=== PATIENT | female | born 1970 | race African-American/Black ===

== ENCOUNTER 2016-11-08 14:36 | Inpatient (IN) | payer OTHER ==
[2016-11-08 15:19] VITALS: BMI 21.7
[2016-11-08] MEDS ORDERED: diphenhydrAMINE HCL 50 MG CAPSULE PO PRN (15:45)
[2016-11-08] MEDS ORDERED: LOPERAMIDE HCL 2 MG CAPSULE PO PRN (15:45)
[2016-11-08] MEDS ORDERED: P-EPHED 60MG/TRIPROLIDI 2.5MG TABLET PO PRN (15:45)
[2016-11-08] MEDS ORDERED: MENTHOL/PHENOL 1 EACH UD MM PRN (15:45)
[2016-11-08] MEDS ORDERED: MAG HYDROX/AL HYDROX/SIMETH 30 ML UNIT-DOSE CUP PO PRN (15:45)
[2016-11-08] MEDS ORDERED: guaiFENesin/D-METHORPHAN HB 10 ML UNIT-DOSE CUPS PO PRN (15:45)
[2016-11-08] MEDS ORDERED: IBUPROFEN 400 MG TABLET (FP) PO PRN (15:45)
[2016-11-08] MEDS ORDERED: ACETAMINOPHEN 325 MG TABLET (FP) PO PRN (15:45)
[2016-11-08] MEDS ORDERED: MAGNESIUM CITRATE 300 ML BOTTLE PO PRN (15:45)
[2016-11-08] MEDS ORDERED: MAGNESIUM HYDROX 2400MG/30ML ORAL SUSPENSION 30 ML CUP PO PRN (15:45)
--- NOTE | 2016-11-08 15:58 | HP ---
Admission ROS S - [facility] Chief Complaint: i need rehab to continue abstaining from alcohol and cocaine Allergies/Adverse Reactions: Allergies Allergy/AdvReac Type Severity Reaction Status Date / Time No Known Allergies Allergy Verified 11/08/16 15:45 History of Present Illness: 46 y/o mf pt with h/o alcohol and crack abuse seeking rehab Exam Limitations: No Limitations - Ebola screening Have you traveled outside of the country in the last 21 days: No Have you had contact with anyone from an Ebola affected area: No Have you been sick,other than usual withdrawal symptoms: No - Review of Systems Constitutional: No Symptoms Reported EENT: reports: No Symptoms Reported, Dental Problems Respiratory: reports: No Symptoms reported Cardiac: reports: No Symptoms Reported GI: reports: No Symptoms Reported : reports: No Symptoms Reported Musculoskeletal: reports: No Symptoms Reported Integumentary: reports: No Symptoms Reported Neuro: reports: Numbness, Paresthesia (feet) Endocrine: reports: Increased Hunger, Increased Thirst, Increased Urine, Unexplained Weight Loss Hematology: reports: No Symptoms Reported Psychiatric: reports: Anxious, Depressed Other Systems: Reviewed and Negative Patient History - Patient Medical History Hx Anemia: No Hx Asthma: No Hx Chronic Obstructive Pulmonary Disease (COPD): No Hx Cancer: No Hx Cardiac Disorders: No Hx Congestive Heart Failure: No Hx Hypertension: Yes Hx Hypercholesterolemia: Yes (CRESTOR) Hx Pacemaker: No HX Cerebrovascular Accident: No Hx Seizures: No Hx Dementia: No Hx Diabetes: Yes (h/o recent hospitalization for dka) Hx Gastrointestinal Disorders: Yes (GERD) Hx Liver Disease: No Hx Genitourinary Disorders: No Hx Sexually Transmitted Disorders: No Hx Renal Disease (ESRD): No Hx Thyroid Disease: No Hx Human Immunodeficiency Virus (HIV): No (LAST 2014 NEGATIVE) Hx Hepatitis C: No Hx Depression: Yes Hx Suicide Attempt: No Hx Bipolar Disorder: No Hx Schizophrenia: No - Patient Surgical History Past Surgical History: No Hx Neurologic Surgery: No Hx Cataract Extraction: No Hx Cardiac Surgery: No Hx Lung Surgery: No Hx Breast Surgery: No Hx Breast Biopsy: No Hx Abdominal Surgery: No Hx Appendectomy: No Hx Cholecystectomy: No Hx Genitourinary Surgery: No Hx Section: No Hx Orthopedic Surgery: No Anesthesia Reaction: No - PPD History Date: 05/05/15 Results: 2 MM - Reproductive History Last Menstrual Period: 04/04/16 - Smoking Cessation Smoking history: Current every day smoker Have you smoked in the past 12 months: Yes Aproximately how many cigarettes per day: 10 Cigars Per Day: 0 Hx Chewing Tobacco Use: No Initiated information on smoking cessation: Yes 'Breaking Loose' booklet given: 11/08/16 - Substance & Tx. History Hx Alcohol Use: Yes Hx Substance Use: Yes Substance Use Type: Alcohol, Cocaine Hx Substance Use Treatment: Yes - Substances Abused Alcohol Route: Oral Frequency: Daily Amount used: beer 2-40ozs, Age of first use: 18 Date of Last Use: 11/08/16 Cocaine Route: Smoking Frequency: Daily Amount used: $100./d Age of first use: 18 Date of Last Use: 11/08/16 Family Disease History - Family Disease History Family Disease History: Diabetes: Brother Admission Physical Exam S - Vital Signs Vital Signs: Vital Signs - 24 hr 11/08/16 15:15 Temperature 97.6 F Pulse Rate 81 Respiratory 18 Rate Blood Pressure 119/72 - Physical General Appearance: Yes: No Apparent Distress, Appropriately Dressed, Thin HEENTM: Yes: EOMI, Hearing grossly Normal, Normocephalic, Normal Voice, TIERRA Respiratory: Yes: Chest Non-Tender, Lungs Clear, Normal Breath Sounds, No Respiratory Distress Neck: Yes: Supple, Trachea in good position Breast: Yes: Breast Exam Deferred Cardiology: Yes: Regular Rhythm, Regular Rate, S1, S2 Abdominal: Yes: Normal Bowel Sounds, Non Tender, Flat Genitourinary: Yes: Frequency Back: Yes: Decreased Range of Motion Musculoskeletal: Yes: Joint Stiffness Extremities: Yes: Within Normal Limits Neurological: Yes: sample finisher II-XII NML intact, Fully Oriented, Alert, Normal Response , Abnormal Cranial NS, Numbness Integumentary: Yes: Within Normal Limits Lymphatic: Yes: Within Normal Limits - Diagnostic (1) Cocaine dependence Current Visit: Yes Status: Chronic Qualifiers: Substance use status: uncomplicated Qualified Code(s): F14.20 - Cocaine dependence, uncomplicated (2) DM Diabetes mellitus type 2 Current Visit: Yes Status: Chronic Comment: BGM 445 at 1:33pm today (3) Hypercholesterolemia Current Visit: Yes Status: Chronic (4) Hypertension Current Visit: Yes Status: Chronic Qualifiers: Hypertension type: essential hypertension Qualified Code(s): I10 - Essential (primary) hypertension (5) Alcohol dependence with withdrawal delirium Current Visit: Yes Status: Chronic (6) Neuropathy Current Visit: Yes Status: Chronic (7) Nicotine dependence Current Visit: Yes Status: Chronic Qualifiers: Nicotine product type: cigarettes Substance use status: uncomplicated Qualified Code(s): F17.210 - Nicotine dependence, cigarettes, uncomplicated Cleared for Admission [facility] - Detox or Rehab Claeared for Rehab Admission: Yes S Breath Alcohol Content Breath Alcohol Content: 0.033 Urine Pregancy Test - Result Urine Test Results: Negative- NO Line Present Urine Drug Screen - Results Drug Screen Negative: No Urine Drug Screen Results: IVAN-Cocaine
[2016-11-08] MEDS: INSULIN SLIDING SCALE (NOVOLOG) 1 VIAL SQ SCH (18:25)
[2016-11-08] MEDS ORDERED: TUBERCULIN PPD 5 TU/0.1ML VIAL ID ONE (19:44)
[2016-11-08] MEDS: QUEtiapine FUMARATE 100 MG TABLET (FP) PO SCH (22:04)
[2016-11-08] MEDS: ROSUVASTATIN PO SCH (22:04)
[2016-11-08] MEDS: THIAMINE HCL 100 MG TABLET (FP) PO SCH (22:05)
[2016-11-08] MEDS: PATIENT'S OWN MEDICATION (NON-FORMULARY) (Insulin Glargine,Hum.Rec.Anlog 20 UNITS) SQ SCH (22:07)
[2016-11-08] MEDS: traZODone HCL 100 MG TABLET (FP) PO SCH (22:08)
[2016-11-09] MEDS: INSULIN SLIDING SCALE (NOVOLOG) 1 VIAL SQ SCH ×4 (06:37→21:42)
[2016-11-09] MEDS: NICOTINE 21 MG/24 HOURS TOPICAL PATCH TD SCH (10:57)
[2016-11-09] MEDS: PRENATAL VITAMINS W/ FOLIC ACID TABLET (FP) PO SCH (10:57)
[2016-11-09] MEDS: ASPIRIN 81 MG CHEWABLE TABLETS PO SCH (10:57)
[2016-11-09] MEDS: GABAPENTIN 100 MG CAPSULE (FP) PO SCH (10:57)
[2016-11-09 10:58] LABS: ALBUMIN 2.7 g/dl (3.4-5.0); ANION GAP 8 (8-16); CALCIUM 8.3 mg/dL (8.5-10.1); CO2 31 mmol/L (21-32); GLUCOSE,RANDOM 129 mg/dL (74-106); MCHC 33.7 g/dl (32.0-36.0); MEAN CELL VOLUME 89.1 fl (80-96); MEAN PLT VOLUME 9.4 fl (7.5-11.1); PLATELET COUNT 147 K/MM3 (134-434); RDW 13.1 % (11.6-15.6); WHITE BLOOD COUNT 6.8 K/mm3 (4.0-10.0)
[2016-11-09] MEDS: PATIENT'S OWN MEDICATION (NON-FORMULARY) (Ramipril [Altace] 10 MG) PO SCH (11:02)
[2016-11-09 11:03] LABS: ALK PHOS 73 U/L (45-117); BILIRUBIN,TOTAL 0.4 mg/dL (0.2-1.0); CREATININE 0.7 mg/dL (0.55-1.02); SGOT/AST 24 U/L (15-37); SGPT/ALT 20 U/L (12-78); TOT PROT 5.3 g/dl (6.4-8.2)
[2016-11-09] MEDS ORDERED: PT OWN MED DRAWER 7, Y5N ONE (11:10)
[2016-11-09 11:45] LABS: HIV 1 & 2 AB NEGATIVE; HIV 1 AGp24 NEGATIVE
[2016-11-09] MEDS ORDERED: INSULIN (NOVOLOG) ASPART 100 UNITS/ML 10ML VIAL ONE (12:13)
--- NOTE | 2016-11-09 12:31 | EKG ---
Test Reason : Blood Pressure : / mmHG Vent. Rate : 083 BPM Atrial Rate : 083 BPM P-R Int : 132 ms QRS Dur : 082 ms QT Int : 404 ms P-R-T Axes : -09 016 025 degrees QTc Int : 474 ms SINUS RHYTHM WITH FREQUENT PREMATURE VENTRICULAR COMPLEXES OTHERWISE NORMAL ECG NO PREVIOUS ECGS AVAILABLE Confirmed by LENA LEE, SHARDA ([id number]) on 11/09/2016 12:31:30 PM Referred By: Confirmed By:SHARDA PAREDES MD
[2016-11-09] MEDS: THIAMINE HCL 100 MG TABLET (FP) PO SCH (21:40)
[2016-11-09] MEDS: traZODone HCL 100 MG TABLET (FP) PO SCH (21:40)
[2016-11-09] MEDS: QUEtiapine FUMARATE 100 MG TABLET (FP) PO SCH (21:40)
[2016-11-09] MEDS: PATIENT'S OWN MEDICATION (NON-FORMULARY) (Insulin Glargine,Hum.Rec.Anlog 20 UNITS) SQ SCH (21:41)
[2016-11-09] MEDS: ROSUVASTATIN PO SCH (21:43)
[2016-11-10] MEDS: INSULIN SLIDING SCALE (NOVOLOG) 1 VIAL SQ SCH ×4 (07:43→21:55)
[2016-11-10] MEDS ORDERED: INSULIN (NOVOLOG) ASPART 100 UNITS/ML 10ML VIAL ONE (07:51)
--- NOTE | 2016-11-10 09:51 | HP ---
Psychiatrist Admission - Data Date of interview: 11/10/16 Admission source: [facility] Identifying data: This is the fourth admission to [address] [place] [address] FOR THIS 46 years old AA single female mother of 21 yo daughter, resides alone,supported by boyfriend. Medical History: HTN,DM,Hyperlipidemia. Psychiatric History: Patient reports history of depressed mood,but didnt address her issues until recently.Patient was admitted to [facility] last winter when she expressed suicidal ideationss.Patient was dx with MDD and was placed on Celaxa 20 mg then increased up to 20 mg po daily.Patient has no regular psychiatric care,obtaining her medications from local ER,Primary Care Physician.Current medications:Celaxa 40 mg po daily,Seroquel 100 mg po hs and Trazodone 100 mg po hs. Physical/Sexual Abuse/Trauma History: denies Vital Signs: Vital Signs - 24 hr 11/09/16 11/10/16 11/10/16 10:55 00:30 03:30 Temperature Pulse Rate 88 Respiratory 18 18 Rate Blood Pressure 125/74 11/10/16 07:44 Temperature 98.1 F Pulse Rate 85 Respiratory 18 Rate Blood Pressure 102/66 Allergies/Adverse Reactions: Allergies Allergy/AdvReac Type Severity Reaction Status Date / Time No Known Allergies Allergy Verified 11/08/16 15:45 Date of last physical exam: 11/08/16 Concur with the findings of this exam: Yes - Substance Abuse/Tx History Hx Alcohol Use: Yes (reports drinking since 18 yo,vodka 1 pint,beer a few 6 packs daily) Hx Substance Use: Yes (cocaine/crack sine 18 yo) Substance Use Type: Alcohol, Cocaine Hx Substance Use Treatment: Yes (longest sobriety 2 years,left AMA this program 05/07) - Admission Criteria Previous failed treatment: Yes Poor recovery environment: Yes Comorbidities: Yes Lacks judgement: Yes Mental Status Exam - Mental Status Exam Alert and Oriented to: Time, Place, Person Cognitive Function: Grossly Intact Patient Appearance: Well Groomed Mood: Sad Affect: Mood Congruent Patient Behavior: Cooperative Speech Pattern: Clear Voice Loudness: Normal Thought Process: Goal Oriented Thought Disorder: Not Present Hallucinations: Denies Suicidal Ideation: Denies Homicidal Ideation: Denies Insight/Judgement: Fair Sleep: Fair Appetite: Good Muscle strength/Tone: Normal Gait/Station: Normal Psychiatric Findings - Problem List ([place] 1, 2,3) (1) Alcohol dependence with withdrawal delirium Current Visit: Yes Status: Chronic (2) Cocaine dependence Current Visit: Yes Status: Chronic Qualifiers: Substance use status: uncomplicated Qualified Code(s): F14.20 - Cocaine dependence, uncomplicated (3) DM Diabetes mellitus type 2 Current Visit: Yes Status: Chronic Comment: BGM 445 at 1:33pm today (4) Hypercholesterolemia Current Visit: Yes Status: Chronic (5) Hypertension Current Visit: Yes Status: Chronic Qualifiers: Hypertension type: essential hypertension Qualified Code(s): I10 - Essential (primary) hypertension (6) Neuropathy Current Visit: Yes Status: Chronic (7) Nicotine dependence Current Visit: Yes Status: Chronic Qualifiers: Nicotine product type: cigarettes Substance use status: uncomplicated Qualified Code(s): F17.210 - Nicotine dependence, cigarettes, uncomplicated - Initial Treatment Plan Initial Treatment Plan: Continue Trazodone 100 mg po hs,Seroquel 100 mg po hs and Celexa 40 mg po daily.
[2016-11-10] MEDS: PRENATAL VITAMINS W/ FOLIC ACID TABLET (FP) PO SCH (10:28)
[2016-11-10] MEDS: GABAPENTIN 100 MG CAPSULE (FP) PO SCH (10:28)
[2016-11-10] MEDS: ASPIRIN 81 MG CHEWABLE TABLETS PO SCH (10:28)
[2016-11-10] MEDS: PATIENT'S OWN MEDICATION (NON-FORMULARY) (Ramipril [Altace] 10 MG) PO SCH (10:28)
[2016-11-10] MEDS: NICOTINE 21 MG/24 HOURS TOPICAL PATCH TD SCH (10:28)
[2016-11-10] MEDS: CITALOPRAM HYDROBROMIDE 20 MG TABLET (FP) PO SCH (10:28)
[2016-11-10] MEDS ORDERED: PT OWN MED DRAWER 7, Y5N ONE ×3 (10:37→17:07)
[2016-11-10 11:21] LABS: URINE APPEARANCE SLCLOUDY; URINE BILIRUBIN NEGATIVE (NEGATIVE); URINE BLOOD NEGATIVE (NEGATIVE); URINE COLOR LTYELLOW; URINE GLUCOSE (UA) 3+ (NEGATIVE); URINE KETONE NEGATIVE (NEGATIVE); URINE NITRITE NEGATIVE (NEGATIVE); URINE PROTEIN NEGATIVE (NEGATIVE); URINE UROBILINOGEN NEGATIVE E.U./dl (0.2-1.0)
[2016-11-10 11:23] LABS: URINE LEUK ESTERASE TRACE (NEGATIVE)
--- NOTE | 2016-11-10 11:29 | EKG ---
Test Reason : Blood Pressure : / mmHG Vent. Rate : 083 BPM Atrial Rate : 083 BPM P-R Int : 126 ms QRS Dur : 084 ms QT Int : 400 ms P-R-T Axes : 074 052 061 degrees QTc Int : 470 ms SINUS RHYTHM WITH FREQUENT PREMATURE VENTRICULAR COMPLEXES NONSPECIFIC T WAVE ABNORMALITY PROLONGED QT ABNORMAL ECG WHEN COMPARED WITH ECG OF 08-NOV-2016 20:29, NO SIGNIFICANT CHANGE WAS FOUND Confirmed by HARSHA TAO MD ([id number]) on 11/10/2016 11:28:47 AM Referred By: Confirmed By:HARSHA TAO MD
[2016-11-10 11:30] LABS: URINE RBC 2 /hpf (0-3); URINE WBC 7 /hpf (3-5)
[2016-11-10] MEDS: PATIENT'S OWN MEDICATION (NON-FORMULARY) (Insulin Glargine,Hum.Rec.Anlog 10 UNITS) SQ SCH (17:08)
[2016-11-10] MEDS: QUEtiapine FUMARATE 100 MG TABLET (FP) PO SCH (21:53)
[2016-11-10] MEDS: traZODone HCL 100 MG TABLET (FP) PO SCH (21:54)
[2016-11-10] MEDS: ROSUVASTATIN PO SCH (21:57)
[2016-11-10] MEDS: NICOTINE POLACRILEX 4 MG GUM BC PRN (21:57)
[2016-11-10] MEDS: THIAMINE HCL 100 MG TABLET (FP) PO SCH (23:35)
[2016-11-11] MEDS: PATIENT'S OWN MEDICATION (NON-FORMULARY) (Insulin Glargine,Hum.Rec.Anlog 10 UNITS) SQ SCH ×2 (07:33→16:33)
[2016-11-11] MEDS: INSULIN SLIDING SCALE (NOVOLOG) 1 VIAL SQ SCH ×4 (07:33→22:09)
[2016-11-11] MEDS: NICOTINE POLACRILEX 4 MG GUM BC PRN (07:35)
[2016-11-11] MEDS ORDERED: INSULIN (NOVOLOG) ASPART 100 UNITS/ML 10ML VIAL ONE ×4 (07:36→22:19)
[2016-11-11] MEDS ORDERED: PT OWN MED DRAWER 7, Y5N ONE ×4 (07:37→19:36)
[2016-11-11] MEDS: CITALOPRAM HYDROBROMIDE 20 MG TABLET (FP) PO SCH (09:19)
[2016-11-11] MEDS: ASPIRIN 81 MG CHEWABLE TABLETS PO SCH (09:19)
[2016-11-11] MEDS: NICOTINE 21 MG/24 HOURS TOPICAL PATCH TD SCH (09:20)
[2016-11-11] MEDS: GABAPENTIN 100 MG CAPSULE (FP) PO SCH (09:20)
[2016-11-11] MEDS: PRENATAL VITAMINS W/ FOLIC ACID TABLET (FP) PO SCH (09:20)
[2016-11-11] MEDS: PATIENT'S OWN MEDICATION (NON-FORMULARY) (Ramipril [Altace] 10 MG) PO SCH (09:21)
[2016-11-11] MEDS: THIAMINE HCL 100 MG TABLET (FP) PO SCH (22:08)
[2016-11-11] MEDS: traZODone HCL 100 MG TABLET (FP) PO SCH (22:08)
[2016-11-11] MEDS: QUEtiapine FUMARATE 100 MG TABLET (FP) PO SCH (22:08)
[2016-11-11] MEDS: ROSUVASTATIN CA 10 MG TABLET (FP) PO SCH (22:08)
[2016-11-12] MEDS: INSULIN SLIDING SCALE (NOVOLOG) 1 VIAL SQ SCH ×4 (07:56→22:10)
[2016-11-12] MEDS: PATIENT'S OWN MEDICATION (NON-FORMULARY) (Insulin Glargine,Hum.Rec.Anlog 10 UNITS) SQ SCH ×2 (07:57→17:07)
[2016-11-12] MEDS ORDERED: INSULIN (NOVOLOG) ASPART 100 UNITS/ML 10ML VIAL ONE ×3 (07:58→17:04)
[2016-11-12] MEDS: GABAPENTIN 100 MG CAPSULE (FP) PO SCH (09:43)
[2016-11-12] MEDS: ASPIRIN 81 MG CHEWABLE TABLETS PO SCH (09:43)
[2016-11-12] MEDS: CITALOPRAM HYDROBROMIDE 20 MG TABLET (FP) PO SCH (09:43)
[2016-11-12] MEDS: PRENATAL VITAMINS W/ FOLIC ACID TABLET (FP) PO SCH (09:44)
[2016-11-12] MEDS: NICOTINE 21 MG/24 HOURS TOPICAL PATCH TD SCH (09:44)
[2016-11-12] MEDS: PATIENT'S OWN MEDICATION (NON-FORMULARY) (Ramipril [Altace] 10 MG) PO SCH (09:44)
[2016-11-12] MEDS ORDERED: PT OWN MED DRAWER 7, Y5N ONE ×6 (16:50→22:40)
[2016-11-12] MEDS: THIAMINE HCL 100 MG TABLET (FP) PO SCH (22:09)
[2016-11-12] MEDS: traZODone HCL 100 MG TABLET (FP) PO SCH (22:09)
[2016-11-12] MEDS: QUEtiapine FUMARATE 100 MG TABLET (FP) PO SCH (22:10)
[2016-11-12] MEDS: NICOTINE POLACRILEX 4 MG GUM BC PRN (22:15)
[2016-11-12] MEDS: ROSUVASTATIN CA 10 MG TABLET (FP) PO SCH (22:36)
[2016-11-13] MEDS: INSULIN SLIDING SCALE (NOVOLOG) 1 VIAL SQ SCH ×4 (06:14→21:48)
[2016-11-13] MEDS: PATIENT'S OWN MEDICATION (NON-FORMULARY) (Insulin Glargine,Hum.Rec.Anlog 10 UNITS) SQ SCH ×2 (07:06→17:01)
[2016-11-13] MEDS ORDERED: PT OWN MED DRAWER 7, Y5N ONE ×6 (07:07→22:49)
[2016-11-13] MEDS: GABAPENTIN 100 MG CAPSULE (FP) PO SCH (10:38)
[2016-11-13] MEDS: ASPIRIN 81 MG CHEWABLE TABLETS PO SCH (10:38)
[2016-11-13] MEDS: PRENATAL VITAMINS W/ FOLIC ACID TABLET (FP) PO SCH (10:38)
[2016-11-13] MEDS: CITALOPRAM HYDROBROMIDE 20 MG TABLET (FP) PO SCH (10:38)
[2016-11-13] MEDS: NICOTINE 21 MG/24 HOURS TOPICAL PATCH TD SCH (10:38)
[2016-11-13] MEDS: PATIENT'S OWN MEDICATION (NON-FORMULARY) (Ramipril [Altace] 10 MG) PO SCH (10:40)
[2016-11-13] MEDS ORDERED: INSULIN (NOVOLOG) ASPART 100 UNITS/ML 10ML VIAL ONE (11:45)
[2016-11-13] MEDS: NICOTINE POLACRILEX 4 MG GUM BC PRN (11:47)
[2016-11-13] MEDS ORDERED: COLLOIDAL OATMEAL 1 BAR EACH TP PRN (13:56)
[2016-11-13] MEDS: traZODone HCL 100 MG TABLET (FP) PO SCH (21:47)
[2016-11-13] MEDS: ROSUVASTATIN CA 10 MG TABLET (FP) PO SCH (21:47)
[2016-11-13] MEDS: THIAMINE HCL 100 MG TABLET (FP) PO SCH (21:47)
[2016-11-13] MEDS: QUEtiapine FUMARATE 100 MG TABLET (FP) PO SCH (21:47)
[2016-11-14] MEDS ORDERED: INSULIN DETEMIR 100 UNITS/ML MDV SQ ONE (05:58)
[2016-11-14] MEDS: NICOTINE POLACRILEX 4 MG GUM BC PRN ×2 (06:26→17:08)
[2016-11-14] MEDS: INSULIN SLIDING SCALE (NOVOLOG) 1 VIAL SQ SCH ×4 (06:55→21:54)
[2016-11-14] MEDS ORDERED: PT OWN MED DRAWER 7, Y5N ONE ×5 (08:03→17:07)
[2016-11-14] MEDS: PATIENT'S OWN MEDICATION (NON-FORMULARY) (Insulin Glargine,Hum.Rec.Anlog 10 UNITS) SQ SCH ×2 (08:04→17:06)
[2016-11-14] MEDS: ASPIRIN 81 MG CHEWABLE TABLETS PO SCH (10:32)
[2016-11-14] MEDS: GABAPENTIN 100 MG CAPSULE (FP) PO SCH (10:32)
[2016-11-14] MEDS: CITALOPRAM HYDROBROMIDE 20 MG TABLET (FP) PO SCH (10:32)
[2016-11-14] MEDS: PRENATAL VITAMINS W/ FOLIC ACID TABLET (FP) PO SCH (10:32)
[2016-11-14] MEDS: PATIENT'S OWN MEDICATION (NON-FORMULARY) (Ramipril [Altace] 10 MG) PO SCH (10:32)
[2016-11-14] MEDS: NICOTINE 21 MG/24 HOURS TOPICAL PATCH TD SCH (10:33)
[2016-11-14] MEDS ORDERED: INSULIN (NOVOLOG) ASPART 100 UNITS/ML 10ML VIAL ONE (11:58)
[2016-11-14] MEDS: THIAMINE HCL 100 MG TABLET (FP) PO SCH (21:53)
[2016-11-14] MEDS: traZODone HCL 100 MG TABLET (FP) PO SCH (21:53)
[2016-11-14] MEDS: QUEtiapine FUMARATE 100 MG TABLET (FP) PO SCH (21:53)
[2016-11-14] MEDS: ROSUVASTATIN CA 10 MG TABLET (FP) PO SCH (21:55)
[2016-11-15] MEDS: INSULIN SLIDING SCALE (NOVOLOG) 1 VIAL SQ SCH ×4 (06:37→21:46)
[2016-11-15] MEDS: PATIENT'S OWN MEDICATION (NON-FORMULARY) (Insulin Glargine,Hum.Rec.Anlog 10 UNITS) SQ SCH ×2 (08:23→17:08)
[2016-11-15] MEDS ORDERED: PT OWN MED DRAWER 7, Y5N ONE ×3 (09:29→19:45)
[2016-11-15] MEDS: ASPIRIN 81 MG CHEWABLE TABLETS PO SCH (10:33)
[2016-11-15] MEDS: CITALOPRAM HYDROBROMIDE 20 MG TABLET (FP) PO SCH (10:33)
[2016-11-15] MEDS: GABAPENTIN 100 MG CAPSULE (FP) PO SCH (10:33)
[2016-11-15] MEDS: PRENATAL VITAMINS W/ FOLIC ACID TABLET (FP) PO SCH (10:33)
[2016-11-15] MEDS: NICOTINE 21 MG/24 HOURS TOPICAL PATCH TD SCH (10:35)
[2016-11-15] MEDS: PATIENT'S OWN MEDICATION (NON-FORMULARY) (Ramipril [Altace] 10 MG) PO SCH (10:35)
[2016-11-15] MEDS ORDERED: INSULIN (NOVOLOG) ASPART 100 UNITS/ML 10ML VIAL ONE (11:51)
[2016-11-15] MEDS: NICOTINE POLACRILEX 4 MG GUM BC PRN (11:53)
[2016-11-15] MEDS: THIAMINE HCL 100 MG TABLET (FP) PO SCH (21:44)
[2016-11-15] MEDS: QUEtiapine FUMARATE 100 MG TABLET (FP) PO SCH (21:45)
[2016-11-15] MEDS: traZODone HCL 100 MG TABLET (FP) PO SCH (21:45)
[2016-11-15] MEDS: ROSUVASTATIN CA 10 MG TABLET (FP) PO SCH (21:47)
[2016-11-16] MEDS: INSULIN SLIDING SCALE (NOVOLOG) 1 VIAL SQ SCH ×4 (06:14→21:41)
[2016-11-16] MEDS ORDERED: PT OWN MED DRAWER 7, Y5N ONE ×4 (06:46→19:43)
[2016-11-16] MEDS: PATIENT'S OWN MEDICATION (NON-FORMULARY) (Insulin Glargine,Hum.Rec.Anlog 10 UNITS) SQ SCH ×2 (07:34→17:02)
[2016-11-16] MEDS: ASPIRIN 81 MG CHEWABLE TABLETS PO SCH (10:57)
[2016-11-16] MEDS: GABAPENTIN 100 MG CAPSULE (FP) PO SCH (10:57)
[2016-11-16] MEDS: CITALOPRAM HYDROBROMIDE 20 MG TABLET (FP) PO SCH (10:57)
[2016-11-16] MEDS: NICOTINE 21 MG/24 HOURS TOPICAL PATCH TD SCH (10:58)
[2016-11-16] MEDS: PRENATAL VITAMINS W/ FOLIC ACID TABLET (FP) PO SCH (10:58)
[2016-11-16] MEDS: PATIENT'S OWN MEDICATION (NON-FORMULARY) (Ramipril [Altace] 10 MG) PO SCH (10:59)
[2016-11-16] MEDS ORDERED: INSULIN (NOVOLOG) ASPART 100 UNITS/ML 10ML VIAL ONE (11:50)
[2016-11-16] MEDS: NICOTINE POLACRILEX 4 MG GUM BC PRN ×2 (11:53→17:04)
[2016-11-16] MEDS: THIAMINE HCL 100 MG TABLET (FP) PO SCH (21:40)
[2016-11-16] MEDS: traZODone HCL 100 MG TABLET (FP) PO SCH (21:40)
[2016-11-16] MEDS: QUEtiapine FUMARATE 100 MG TABLET (FP) PO SCH (21:40)
[2016-11-16] MEDS: ROSUVASTATIN CA 10 MG TABLET (FP) PO SCH (21:42)
[2016-11-17] MEDS ORDERED: PT OWN MED DRAWER 7, Y5N ONE ×5 (03:21→19:35)
[2016-11-17] MEDS: INSULIN SLIDING SCALE (NOVOLOG) 1 VIAL SQ SCH ×4 (06:34→21:55)
[2016-11-17] MEDS: PATIENT'S OWN MEDICATION (NON-FORMULARY) (Insulin Glargine,Hum.Rec.Anlog 10 UNITS) SQ SCH ×2 (07:42→17:10)
[2016-11-17] MEDS: NICOTINE POLACRILEX 4 MG GUM BC PRN (07:44)
[2016-11-17] MEDS: PRENATAL VITAMINS W/ FOLIC ACID TABLET (FP) PO SCH (10:37)
[2016-11-17] MEDS: ASPIRIN 81 MG CHEWABLE TABLETS PO SCH (10:37)
[2016-11-17] MEDS: GABAPENTIN 100 MG CAPSULE (FP) PO SCH (10:37)
[2016-11-17] MEDS: CITALOPRAM HYDROBROMIDE 20 MG TABLET (FP) PO SCH (10:37)
[2016-11-17] MEDS: PATIENT'S OWN MEDICATION (NON-FORMULARY) (Ramipril [Altace] 10 MG) PO SCH (10:38)
[2016-11-17] MEDS: NICOTINE 21 MG/24 HOURS TOPICAL PATCH TD SCH (10:38)
[2016-11-17] MEDS ORDERED: INSULIN (NOVOLOG) ASPART 100 UNITS/ML 10ML VIAL ONE ×2 (11:55→17:20)
[2016-11-17] MEDS: ROSUVASTATIN CA 10 MG TABLET (FP) PO SCH (21:54)
[2016-11-17] MEDS: traZODone HCL 100 MG TABLET (FP) PO SCH (21:54)
[2016-11-17] MEDS: QUEtiapine FUMARATE 100 MG TABLET (FP) PO SCH (21:54)
[2016-11-17] MEDS: THIAMINE HCL 100 MG TABLET (FP) PO SCH (21:54)
[2016-11-18] MEDS ORDERED: PT OWN MED DRAWER 7, Y5N ONE ×5 (05:24→19:36)
[2016-11-18] MEDS: INSULIN SLIDING SCALE (NOVOLOG) 1 VIAL SQ SCH ×4 (06:35→21:38)
[2016-11-18] MEDS: PATIENT'S OWN MEDICATION (NON-FORMULARY) (Insulin Glargine,Hum.Rec.Anlog 10 UNITS) SQ SCH ×2 (07:26→16:46)
[2016-11-18] MEDS: PATIENT'S OWN MEDICATION (NON-FORMULARY) (Ramipril [Altace] 10 MG) PO SCH (10:20)
[2016-11-18] MEDS: ASPIRIN 81 MG CHEWABLE TABLETS PO SCH (10:20)
[2016-11-18] MEDS: GABAPENTIN 100 MG CAPSULE (FP) PO SCH (10:20)
[2016-11-18] MEDS: PRENATAL VITAMINS W/ FOLIC ACID TABLET (FP) PO SCH (10:20)
[2016-11-18] MEDS: CITALOPRAM HYDROBROMIDE 20 MG TABLET (FP) PO SCH (10:21)
[2016-11-18] MEDS: NICOTINE 21 MG/24 HOURS TOPICAL PATCH TD SCH (10:21)
[2016-11-18] MEDS ORDERED: INSULIN (NOVOLOG) ASPART 100 UNITS/ML 10ML VIAL ONE (11:49)
[2016-11-18] MEDS: THIAMINE HCL 100 MG TABLET (FP) PO SCH (21:36)
[2016-11-18] MEDS: QUEtiapine FUMARATE 100 MG TABLET (FP) PO SCH (21:36)
[2016-11-18] MEDS: traZODone HCL 100 MG TABLET (FP) PO SCH (21:36)
[2016-11-18] MEDS: ROSUVASTATIN CA 10 MG TABLET (FP) PO SCH (21:39)
[2016-11-19] MEDS ORDERED: PT OWN MED DRAWER 7, Y5N ONE ×5 (03:47→21:42)
[2016-11-19] MEDS: INSULIN SLIDING SCALE (NOVOLOG) 1 VIAL SQ SCH ×4 (06:42→21:45)
[2016-11-19] MEDS: PATIENT'S OWN MEDICATION (NON-FORMULARY) (Insulin Glargine,Hum.Rec.Anlog 10 UNITS) SQ SCH ×2 (07:50→17:01)
[2016-11-19] MEDS: NICOTINE 21 MG/24 HOURS TOPICAL PATCH TD SCH (10:21)
[2016-11-19] MEDS: PATIENT'S OWN MEDICATION (NON-FORMULARY) (Ramipril [Altace] 10 MG) PO SCH (10:21)
[2016-11-19] MEDS: PRENATAL VITAMINS W/ FOLIC ACID TABLET (FP) PO SCH (10:22)
[2016-11-19] MEDS: GABAPENTIN 100 MG CAPSULE (FP) PO SCH (10:22)
[2016-11-19] MEDS: CITALOPRAM HYDROBROMIDE 20 MG TABLET (FP) PO SCH (10:22)
[2016-11-19] MEDS: ASPIRIN 81 MG CHEWABLE TABLETS PO SCH (10:22)
[2016-11-19] MEDS ORDERED: INSULIN (NOVOLOG) ASPART 100 UNITS/ML 10ML VIAL ONE (11:54)
[2016-11-19] MEDS: ROSUVASTATIN CA 10 MG TABLET (FP) PO SCH (21:43)
[2016-11-19] MEDS: QUEtiapine FUMARATE 100 MG TABLET (FP) PO SCH (21:44)
[2016-11-19] MEDS: THIAMINE HCL 100 MG TABLET (FP) PO SCH (21:44)
[2016-11-19] MEDS: traZODone HCL 100 MG TABLET (FP) PO SCH (21:44)
[2016-11-20] MEDS ORDERED: PT OWN MED DRAWER 7, Y5N ONE ×4 (03:25→16:04)
[2016-11-20] MEDS: INSULIN SLIDING SCALE (NOVOLOG) 1 VIAL SQ SCH ×4 (07:18→21:31)
[2016-11-20] MEDS: PATIENT'S OWN MEDICATION (NON-FORMULARY) (Insulin Glargine,Hum.Rec.Anlog 10 UNITS) SQ SCH (07:19)
[2016-11-20] MEDS ORDERED: INSULIN (NOVOLOG) ASPART 100 UNITS/ML 10ML VIAL ONE ×3 (07:20→16:58)
[2016-11-20] MEDS: GABAPENTIN 100 MG CAPSULE (FP) PO SCH (10:32)
[2016-11-20] MEDS: PATIENT'S OWN MEDICATION (NON-FORMULARY) (Ramipril [Altace] 10 MG) PO SCH (10:32)
[2016-11-20] MEDS: ASPIRIN 81 MG CHEWABLE TABLETS PO SCH (10:32)
[2016-11-20] MEDS: CITALOPRAM HYDROBROMIDE 20 MG TABLET (FP) PO SCH (10:32)
[2016-11-20] MEDS: PRENATAL VITAMINS W/ FOLIC ACID TABLET (FP) PO SCH (10:32)
[2016-11-20] MEDS: NICOTINE 21 MG/24 HOURS TOPICAL PATCH TD SCH (10:33)
[2016-11-20] MEDS: INSULIN GLARGINE HUM REC ANLOG 12 UNIT SQ SCH (16:59)
[2016-11-20] MEDS: THIAMINE HCL 100 MG TABLET (FP) PO SCH (21:30)
[2016-11-20] MEDS: QUEtiapine FUMARATE 100 MG TABLET (FP) PO SCH (21:31)
[2016-11-20] MEDS: traZODone HCL 100 MG TABLET (FP) PO SCH (21:31)
[2016-11-20] MEDS: ROSUVASTATIN CA 10 MG TABLET (FP) PO SCH (21:32)
[2016-11-21] MEDS: INSULIN SLIDING SCALE (NOVOLOG) 1 VIAL SQ SCH ×4 (07:20→21:05)
[2016-11-21] MEDS ORDERED: INSULIN (NOVOLOG) ASPART 100 UNITS/ML 10ML VIAL ONE ×3 (07:21→21:04)
[2016-11-21] MEDS: INSULIN GLARGINE HUM REC ANLOG 12 UNIT SQ SCH ×2 (07:22→16:45)
[2016-11-21] MEDS ORDERED: PT OWN MED DRAWER 7, Y5N ONE ×2 (07:22→16:32)
[2016-11-21] MEDS: GABAPENTIN 100 MG CAPSULE (FP) PO SCH (10:14)
[2016-11-21] MEDS: ASPIRIN 81 MG CHEWABLE TABLETS PO SCH (10:14)
[2016-11-21] MEDS: CITALOPRAM HYDROBROMIDE 20 MG TABLET (FP) PO SCH (10:14)
[2016-11-21] MEDS: PATIENT'S OWN MEDICATION (NON-FORMULARY) (Ramipril [Altace] 10 MG) PO SCH (10:14)
[2016-11-21] MEDS: NICOTINE 21 MG/24 HOURS TOPICAL PATCH TD SCH (10:14)
[2016-11-21] MEDS: PRENATAL VITAMINS W/ FOLIC ACID TABLET (FP) PO SCH (10:14)
[2016-11-21] MEDS ORDERED: INSULIN (NOVOLOG) ASPART 100 UNITS/ML 10ML VIAL SQ ONE (11:56)
[2016-11-21] MEDS: THIAMINE HCL 100 MG TABLET (FP) PO SCH (21:40)
[2016-11-21] MEDS: QUEtiapine FUMARATE 100 MG TABLET (FP) PO SCH (21:40)
[2016-11-21] MEDS: traZODone HCL 100 MG TABLET (FP) PO SCH (21:40)
[2016-11-21] MEDS: ROSUVASTATIN CA 10 MG TABLET (FP) PO SCH (21:41)
[2016-11-22] MEDS ORDERED: PT OWN MED DRAWER 7, Y5N ONE ×3 (00:09→09:00)
[2016-11-22 07:02] VITALS: BP 142/82; PULSE 76; TEMP 97.9
[2016-11-22] MEDS: INSULIN GLARGINE HUM REC ANLOG 12 UNIT SQ SCH (07:34)
[2016-11-22] MEDS: INSULIN SLIDING SCALE (NOVOLOG) 1 VIAL SQ SCH (07:35)
[2016-11-22] MEDS: PATIENT'S OWN MEDICATION (NON-FORMULARY) (Ramipril [Altace] 10 MG) PO SCH (09:41)
[2016-11-22] MEDS: PRENATAL VITAMINS W/ FOLIC ACID TABLET (FP) PO SCH (09:41)
[2016-11-22] MEDS: ASPIRIN 81 MG CHEWABLE TABLETS PO SCH (09:41)
[2016-11-22] MEDS: GABAPENTIN 100 MG CAPSULE (FP) PO SCH (09:41)
[2016-11-22] MEDS: CITALOPRAM HYDROBROMIDE 20 MG TABLET (FP) PO SCH (09:42)
[2016-11-22] MEDS: NICOTINE 21 MG/24 HOURS TOPICAL PATCH TD SCH (09:42)
--- NOTE | 2016-11-22 09:46 | PN ---
Psychiatric Progress Note Vital Signs: Vital Signs Period Temp Pulse Resp BP Sys/Malik Pulse Ox Last 24 Hr 97.9 F 75-76 16-18 142-145/77-82 Date of Session: 11/22/16 Chief Complaint:: Discharge visit HPI: Patient addressed Alcohol and Cocaine dependence comorbid with Substance induced mood disorder. ROS: Significant for DM with Neuropathy,Hyperlipidemia,HTN. Current Medications: Active Medications Generic Name Dose Route Start Last Admin Trade Name Freq PRN Reason Stop Dose Admin Acetaminophen 650 mg 11/08/16 15:45 Tylenol - PO Q4H PRN PAIN Al Hydroxide/Mg Hydroxide 30 ml 11/08/16 15:45 11/17/16 00:02 Mylanta Oral Suspension - PO 30 ml Q6H PRN Administration DYSPEPSIA Aspirin 81 mg 11/09/16 10:00 11/22/16 09:41 Asa - PO 81 mg DAILY LICO Administration Citalopram Hydrobromide 40 mg 11/10/16 10:00 11/22/16 09:42 Celexa - PO 40 mg DAILY LICO Administration Colloidal Oatmeal 1 applic 11/13/16 13:56 11/14/16 06:26 Aveeno Soap - TP 1 applic DAILY PRN Administration HYGEINE Diphenhydramine HCl 50 mg 11/08/16 15:45 11/10/16 21:53 Benadryl - PO 50 mg HSMR1 PRN Administration INSOMNIA Eucalyptus/Menthol/Phenol/Sorbitol 1 each 11/08/16 15:45 Cepastat Lozenge - MM Q4H PRN SORE THROAT Gabapentin 100 mg 11/09/16 10:00 11/22/16 09:41 Neurontin - PO 100 mg DAILY LICO Administration Guaifenesin 10 ml 11/08/16 15:45 Robitussin Dm - PO Q6H PRN COUGH Ibuprofen 400 mg 11/08/16 15:45 Motrin - PO Q6H PRN SEVERE PAIN Insulin Aspart 1 vial 11/21/16 14:54 11/22/16 07:35 Novolog Vial Sliding Scale - SQ Not Given ACHS [facility] Protocol Loperamide HCl 4 mg 11/08/16 15:45 Imodium - PO Q6H PRN DIARRHEA Magnesium Citrate 300 ml 11/08/16 15:45 Citroma - PO Q48H PRN CONSTIPATION Magnesium Hydroxide 30 ml 11/08/16 15:45 Milk Of Magnesia - PO DAILY PRN CONSTIPATION Nicotine 21 mg 11/09/16 10:00 11/22/16 09:42 Nicoderm Patch - TD Not Given DAILY LICO Nicotine Polacrilex 4 mg 11/08/16 15:45 11/17/16 07:44 Nicorette Gum - BC 4 mg Q2H PRN Administration NICOTINE REPLACEMENT RX Non-Formulary Medication 10 mg 11/09/16 10:00 11/22/16 09:41 Ramipril [Altace] PO 10 mg DAILY LICO Administration Non-Formulary Medication 12 units 11/20/16 17:30 11/22/16 07:34 Insulin Glargine,Hum.Rec.Anlog SQ 12 units BIDWM LICO Administration Multivit/Folic Acid/Iron 1 tab 11/09/16 10:00 11/22/16 09:41 Vitamins (Sjr) - PO 1 tab DAILY LICO Administration Pseudoephedrine/Triprolidine 1 combo 11/08/16 15:45 Actifed - PO TID PRN NASAL CONGESTION Quetiapine Fumarate 100 mg 11/08/16 22:00 11/21/16 21:40 Seroquel - PO 100 mg HS LICO Administration Rosuvastatin Calcium 10 mg 11/11/16 22:00 11/21/16 21:41 Crestor - PO 10 mg HS LICO Administration Thiamine HCl 100 mg 11/08/16 22:00 11/21/16 21:40 Vitamin B1 - PO 100 mg HS LICO Administration Trazodone HCl 100 mg 11/08/16 22:00 11/21/16 21:40 Desyrel - PO 100 mg HS LICO Administration Current Side Effect: No Lab tests ordered: No Lab tests reviewed: Yes Provider note:: Patient completed this program today.She has met her short term goals and will continue to address her issues on outpatient basis at [facility] [place] [facility].Patient soledad continue to take her psychotropic medications:Trazodone 100 mg po hs,Neurontin 100 mg po daily,celexa 40 mg po daily and Seroquel 100 mg po hs.Scripts for 30 days supply provided. Therpay provided focusing on coping skills,support sytem utilization to maintain recovery. Total face to face time:: 30 Mental Status Exam - Mental Status Exam Alert and Oriented to: Time, Place, Person Cognitive Function: Grossly Intact Patient Appearance: Well Groomed Mood: Euthymic Affect: Appropriate, Mood Congruent Patient Behavior: Cooperative Speech Pattern: Clear Voice Loudness: Normal Thought Process: Goal Oriented Thought Disorder: Not Present Hallucinations: Denies Suicidal Ideation: Denies Homicidal Ideation: Denies Insight/Judgement: Fair Sleep: Fair Appetite: Fair Muscle strength/Tone: Normal Gait/Station: Normal Psychiatric Treatment Plan - Problem List (1) Alcohol dependence with withdrawal delirium Current Visit: Yes (2) Cocaine dependence Current Visit: Yes Qualifiers: Substance use status: uncomplicated Qualified Code(s): F14.20 - Cocaine dependence, uncomplicated (3) DM Diabetes mellitus type 2 Current Visit: Yes Comment: BGM 445 at 1:33pm today (4) Hypercholesterolemia Current Visit: Yes (5) Hypertension Current Visit: Yes Qualifiers: Hypertension type: essential hypertension Qualified Code(s): I10 - Essential (primary) hypertension (6) Neuropathy Current Visit: Yes (7) Nicotine dependence Current Visit: Yes Qualifiers: Nicotine product type: cigarettes Substance use status: uncomplicated Qualified Code(s): F17.210 - Nicotine dependence, cigarettes, uncomplicated
== END 2016-11-22 09:45 | disposition home or self-care (01) | DRG 772 ==
LOC: YASAS 14:36 → Y3E 17:07
PROVIDERS: ADMIT Psychiatry & Neurology Psychiatry; ATTEND Psychiatry & Neurology Psychiatry
PROC: HZ42ZZZ Group Counseling for Substance Abuse Treatment, Cognitive-Behavioral (ICD-10-PCS; principal; 2016-11-08)
DX: F10.20 Alcohol dependence, uncomplicated (principal); F14.20 Cocaine dependence, uncomplicated; F17.210 Nicotine dependence, cigarettes, uncomplicated; F19.24 Other psychoactive substance dependence with psychoactive substance-induced mood disorder; E11.9 Type 2 diabetes mellitus without complications; E78.5 Hyperlipidemia, unspecified; G62.9 Polyneuropathy, unspecified; I10 Essential (primary) hypertension; Z59.0 Homelessness
CPT/HCPCS: 36415; 80053; 81003; 81015; 85027; 86593; 87389; 93005; 93010

== ENCOUNTER 2018-02-16 03:57 | Emergency (ER) | payer OTHER ==
[2018-02-16 04:04] VITALS: TEMP 97.9; BMI 24.3
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
[2018-02-16] MEDS ORDERED: HALOPERIDOL LACTATE 5 MG/ML IM ONE (04:43)
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
[2018-02-16] MEDS ORDERED: FOLIC ACID INJECTION - 1 MG, THIAMINE HCL 100 MG, MULTIVIT INJECTION ADULT 10 ML in SOD... IVPB ONE (04:44)
[2018-02-16] MEDS ORDERED: HALOPERIDOL LACTATE 5 MG/ML ONE (05:13)
[2018-02-16] MEDS ORDERED: LORazepam 2 MG/ML SDV VIAL ONE (05:13)
[2018-02-16 05:15] LABS: BASO % 1.1 % (0-2.0); EOS % 1.7 % (0-4.5); HEMATOCRIT 41.2 % (32.4-45.2); MCH 30.6 pg (25.7-33.7); MCHC 33.9 g/dl (32.0-36.0); MEAN CELL VOLUME 90.2 fl (80-96); MEAN PLT VOLUME 7.8 fl (7.5-11.1); NEUT % 53.2 % (42.8-82.8); PLATELET COUNT 201 K/MM3 (134-434); RBC 4.57 M/mm3 (3.60-5.2); WHITE BLOOD COUNT 9.5 K/mm3 (4.0-10.0)
[2018-02-16 05:56] LABS: ALBUMIN 3.7 g/dl (3.4-5.0); ANION GAP 9 (8-16); BLOOD UREA NITROGEN 10 mg/dL (7-18); CALCIUM 8.8 mg/dL (8.5-10.1); CHLORIDE 102 mmol/L (98-107); CO2 28 mmol/L (21-32); CREATININE 0.9 mg/dL (0.55-1.02); POTASSIUM 4.2 mmol/L (3.5-5.1); SGOT/AST 17 U/L (15-37); SGPT/ALT 18 U/L (12-78); SODIUM 139 mmol/L (136-145)
[2018-02-16 06:00] LABS: ALK PHOS 71 U/L (45-117); BILIRUBIN,TOTAL 0.4 mg/dL (0.2-1.0); TOT PROT 7.3 g/dl (6.4-8.2)
[2018-02-16 06:02] LABS: GLUCOSE,RANDOM 315 mg/dL (74-106)
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
[2018-02-16] MEDS ORDERED: ACETAMINOPHEN 325 MG TABLET (FP) PO ONE (14:50)
[2018-02-16] MEDS ORDERED: ACETAMINOPHEN 325 MG TABLET (FP) ONE (14:51)
[2018-02-16 15:05] VITALS: BP 144/98; PULSE 85
== END 2018-02-16 15:05 | disposition home or self-care (01) ==
LOC: JER 03:57
PROC: 3E033GC Introduction of Other Therapeutic Substance into Peripheral Vein, Percutaneous Approach (ICD-10-PCS; principal; 2018-02-16)
PROC: 3E023GC Introduction of Other Therapeutic Substance into Muscle, Percutaneous Approach (ICD-10-PCS; 2018-02-16)
DX: S00.83XA Contusion of other part of head, initial encounter (principal); F10.120 Alcohol abuse with intoxication, uncomplicated; Y04.2XXA Assault by strike against or bumped into by another person, initial encounter; Y93.89 Activity, other specified; Y92.89 Other specified places as the place of occurrence of the external cause; Y99.8 Other external cause status; Y07.03 Male partner, perpetrator of maltreatment and neglect; E11.9 Type 2 diabetes mellitus without complications; Z79.4 Long term (current) use of insulin; E78.00 Pure hypercholesterolemia, unspecified; Z59.0 Homelessness
CPT/HCPCS: 36415; 70450-TC; 80053; 80307; 82962; 84702; 85025; 96365; 96366; 96372; 96375; 99283-25; J7030

== ENCOUNTER 2018-03-22 12:32 | Inpatient (IN) | payer OTHER ==
[2018-03-22 13:04] VITALS: BMI 24.3
--- NOTE | 2018-03-22 19:49 | HP ---
"CIWA Score - CIWA Score Nausea/Vomitin-No Nausea/No Vomiting Muscle Tremors: 3 Anxiety: 2 Agitation: 4-Moderately Restless Paroxysmal Sweats: 4-Forehead w/Sweat Beads Orientation: 0-Oriented Tacttile Disturbances: 0-None Auditory Disturbances: 0-None Visual Disturbances: 0-None Headache: 2-Mild CIWA-Ar Total Score: 15 Admission ROS BHS - HPI Chief Complaint: Here for alcohol withdrawal and I also use cocaine. Allergies/Adverse Reactions: Allergies Allergy/AdvReac Type Severity Reaction Status Date / Time No Known Allergies Allergy Verified 03/22/18 14:42 History of Present Illness: Hx alcohol use since age 16 and cocaine use since age 18 now uses crack. Denies hx of blackouts or seizures. Has had a 2 year period of sobriety when attended groups and meetings (in early 1999). Hx depression and insomnia and being seen by mental health. Hx: HTN, elevated lipids, IDDM, neuropathy,and GERD. Compliant w/ all meds when sober. Search Terms: Jordan Rincon, 1970 Search Date: 03/22/2018 07:34:48 PM The Drug Utilization Report below displays all of the controlled substance prescriptions, if any, that your patient has filled in the last twelve months. The information displayed on this report is compiled from pharmacy submissions to the Department, and accurately reflects the information as submitted by the pharmacies. This report was requested by: Krystina Ibarra | Reference #: [id number] There are no results for the search terms that you entered. Exam Limitations: No Limitations - Ebola screening Have you traveled outside of the country in the last 21 days: No Have you had contact with anyone from an Ebola affected area: No Have you been sick,other than usual withdrawal symptoms: No Do you have a fever: No - Review of Systems Constitutional: Chills, Loss of Appetite, Changes in sleep (Difficulty falling and staying asleep.) EENT: reports: Blurred Vision (Needs glasses), Dental Problems (Missing several teeth) Respiratory: reports: No Symptoms reported Cardiac: reports: No Symptoms Reported GI: reports: Indigestion (acid reflux) : reports: Discharge (Whitish vaginal discharge which does not itch.) Musculoskeletal: reports: No Symptoms Reported Integumentary: reports: No Symptoms Reported Neuro: reports: Headache (r/t withdrawal), Numbness (Toes and feet numbness x 5 years.), Tremors (r/t withdrawal) Endocrine: reports: Increased Thirst (When sugar is high) Hematology: reports: No Symptoms Reported Psychiatric: reports: Judgement Intact, Orientated x3, Agitated, Anxious, Depressed (Denies thoughts of harming self or others.) Patient History - Patient Medical History Hx Anemia: No Hx Asthma: No Hx Chronic Obstructive Pulmonary Disease (COPD): No Hx Cancer: No Hx Cardiac Disorders: No Hx Congestive Heart Failure: No Hx Hypertension: Yes (ON MEDS.) Hx Hypercholesterolemia: Yes (CRESTOR) Hx Pacemaker: No HX Cerebrovascular Accident: No Hx Seizures: No Hx Dementia: No Hx Diabetes: Yes (IDDM) Hx Gastrointestinal Disorders: Yes (acid reflux) Hx Liver Disease: No Hx Genitourinary Disorders: No Hx Sexually Transmitted Disorders: No Hx Renal Disease (ESRD): No Hx Thyroid Disease: No Hx Human Immunodeficiency Virus (HIV): No (LAST 2014 NEGATIVE) Hx Hepatitis C: No Hx Depression: Yes Hx Suicide Attempt: Yes (TRIED TO OVERDOSE 20 YRS AGO.) Hx Bipolar Disorder: No Hx Schizophrenia: No - Patient Surgical History Past Surgical History: No Hx Neurologic Surgery: No Hx Cataract Extraction: No Hx Cardiac Surgery: No Hx Lung Surgery: No Hx Breast Surgery: No Hx Breast Biopsy: No Hx Abdominal Surgery: No Hx Appendectomy: No Hx Cholecystectomy: No Hx Genitourinary Surgery: No Hx Section: No Hx Orthopedic Surgery: No Anesthesia Reaction: No - PPD History Previous Implant?: Yes Documented Results: Negative w/o proof Implanted On Prior [facility] Admission?: Yes Date: 11/10/16 Results: 2 MM PPD to be Administered?: Yes - Reproductive History Patient is a Female of Child Bearing Age (11 -55 yrs old): Yes Last Menstrual Period: 03/08/18 Patient : No - Smoking Cessation Smoking history: Current every day smoker Have you smoked in the past 12 months: Yes Aproximately how many cigarettes per day: 10 Cigars Per Day: 0 Hx Chewing Tobacco Use: No Initiated information on smoking cessation: Yes 'Breaking Loose' booklet given: 03/22/18 - Substance & Tx. History Hx Alcohol Use: Yes Hx Substance Use: Yes Substance Use Type: Alcohol, Cocaine Hx Substance Use Treatment: Yes (detox, rehab) - Substances Abused Alcohol Route: Oral Frequency: Daily Amount used: 1 and 1/2 pints vodka Age of first use: 16 Date of Last Use: 03/22/18 ( 12 noon) Cocaine Route: Smoking Frequency: Daily Amount used: $100 and up Age of first use: 18 Date of Last Use: 03/22/18 (12 noon) Family Disease History - Family Disease History Family Disease History: Diabetes: Brother Admission Physical Exam [facility] - Vital Signs Vital Signs: Vital Signs - 24 hr 03/22/18 13:02 Temperature 98.2 F Pulse Rate 92 H Respiratory 20 Rate Blood Pressure 131/83 - Physical General Appearance: Yes: Nourished, Appropriately Dressed, Tremorous, Irritable , Sweating, Anxious HEENTM: Yes: EOMI, Hearing grossly Normal, Normocephalic, Normal Voice, TIERRA Respiratory: Yes: Chest Non-Tender, Lungs Clear, Normal Breath Sounds Neck: Yes: No masses,lesions,Nodules, Supple Breast: Yes: Breast Exam Deferred Cardiology: Yes: Regular Rhythm, Regular Rate, S1, S2 Abdominal: Yes: Non Tender, Soft, Increased Bowel Sounds Genitourinary: Yes: Within Normal Limits Back: Yes: Normal Inspection Extremities: Yes: Normal Capillary Refill, Normal Range of Motion, Non-Tender, Tremors (of hands when arms extended) Neurological: Yes: bottom crane operator II-XII NML intact, Fully Oriented, Alert, Motor Strength 5/5, Normal Mood/Affect Integumentary: Yes: Normal Color, Dry, Warm Lymphatic: Yes: Within Normal Limits - Diagnostic (1) GERD (gastroesophageal reflux disease) Current Visit: Yes Status: Chronic Qualifiers: Esophagitis presence: esophagitis presence not specified Qualified Code(s) : K21.9 - Gastro-esophageal reflux disease without esophagitis (2) Alcohol dependence with withdrawal delirium Current Visit: Yes Status: Acute (3) Cocaine dependence Current Visit: Yes Status: Chronic Qualifiers: Substance use status: uncomplicated Qualified Code(s): F14.20 - Cocaine dependence, uncomplicated (4) Hypercholesterolemia Current Visit: Yes Status: Chronic (5) Hypertension Current Visit: Yes Status: Chronic Qualifiers: Hypertension type: essential hypertension Qualified Code(s): I10 - Essential (primary) hypertension (6) Neuropathy Current Visit: Yes Status: Chronic (7) Vaginal yeast infection Current Visit: Yes Status: Acute Cleared for Admission [facility] - Detox or Rehab [facility] Level of Care: Medically Managed Detox Regimen/Protocol: Librium [facility] Breath Alcohol Content Breath Alcohol Content: 0.084 Urine Pregancy Test - Result Urine Test Results: Negative- NO Line Present Urine Drug Screen - Results Drug Screen Negative: No Urine Drug Screen Results: IVAN-Cocaine"
[2018-03-22] MEDS ORDERED: MAG HYDROX/AL HYDROX/SIMETH 30 ML UNIT-DOSE CUP PO PRN (20:04)
[2018-03-22] MEDS ORDERED: NICOTINE POLACRILEX 2 MG GUM BC PRN (20:04)
[2018-03-22] MEDS ORDERED: MAGNESIUM CITRATE 300 ML BOTTLE PO PRN (20:04)
[2018-03-22] MEDS ORDERED: MAGNESIUM HYDROX 2400MG/30ML ORAL SUSPENSION 30 ML CUP PO PRN (20:04)
[2018-03-22] MEDS ORDERED: LOPERAMIDE HCL 2 MG CAPSULE PO PRN (20:04)
[2018-03-22] MEDS ORDERED: hydrOXYzine PAMOATE 50 MG CAPSULE (FP) PO PRN (20:04)
[2018-03-22] MEDS ORDERED: guaiFENesin/D-METHORPHAN HB 10 ML UNIT-DOSE CUPS PO PRN (20:04)
[2018-03-22] MEDS ORDERED: ACETAMINOPHEN 325 MG TABLET (FP) PO PRN (20:04)
[2018-03-22] MEDS ORDERED: chlordiazePOXIDE HCL 25 MG CAPSULE PO PRN (20:04)
[2018-03-22] MEDS ORDERED: MENTHOL/PHENOL 1 EACH UD MM PRN (20:04)
[2018-03-22] MEDS ORDERED: chlordiazePOXIDE HCL 25 MG CAPSULE PO ONE (20:04)
[2018-03-22] MEDS ORDERED: P-EPHED 60MG/TRIPROLIDI 2.5MG TABLET PO PRN (20:04)
[2018-03-22] MEDS ORDERED: IBUPROFEN 400 MG TABLET (FP) PO PRN (20:04)
[2018-03-22] MEDS ORDERED: INSULIN (NOVOLOG) ASPART 100 UNITS/ML 10ML VIAL ONE (21:48)
[2018-03-22] MEDS: GABAPENTIN 300 MG CAPSULE (FP) PO SCH (21:52)
[2018-03-22] MEDS: ATORVASTATIN CA 10 MG TABLET (FP) PO SCH (21:52)
[2018-03-22] MEDS: INSULIN SLIDING SCALE (NOVOLOG) 1 VIAL SQ SCH (21:54)
[2018-03-22] MEDS ORDERED: MELATONIN 5 MG TABLETS PO PRN (22:00)
[2018-03-22] MEDS ORDERED: INSULIN GLARGINE HUM REC ANLOG 12 UNIT SQ SCH (22:00)
[2018-03-22] MEDS: THIAMINE HCL 100 MG TABLET (FP) PO SCH (22:13)
[2018-03-22] MEDS: chlordiazePOXIDE HCL 25 MG CAPSULE PO SCH (22:13)
[2018-03-22] MEDS: CLOTRIMAZOLE 1% VAGINAL CREAM WITH APPLICATOR 45 GM TUBE VG SCH (22:14)
[2018-03-22 23:30] LABS: URINE APPEARANCE SLCLOUDY; URINE BILIRUBIN NEGATIVE (<2.0 mg/dL); URINE COLOR LTYELLOW; URINE GLUCOSE (UA) 3+ (NEGATIVE); URINE KETONE NEGATIVE (NEGATIVE); URINE LEUK ESTERASE NEGATIVE (NEGATIVE); URINE NITRITE NEGATIVE (NEGATIVE); URINE UROBILINOGEN NEGATIVE mg/dL (0.2-1.0)
[2018-03-22 23:31] LABS: URINE PROTEIN 2+ (NEGATIVE)
[2018-03-22 23:35] LABS: EPI CELLS RARE /HPF (FEW); URINE BACTERIA RARE /hpf (NONE SEEN); URINE HYALINE CAST 4 /lpf
[2018-03-23] MEDS: chlordiazePOXIDE HCL 25 MG CAPSULE PO SCH ×4 (05:35→22:51)
[2018-03-23] MEDS: RAMIPRIL 5 MG CAPSULE (FP) PO SCH (05:54)
[2018-03-23] MEDS: INSULIN SLIDING SCALE (NOVOLOG) 1 VIAL SQ SCH ×3 (06:11→17:04)
[2018-03-23] MEDS ORDERED: INSULIN (NOVOLOG) ASPART 100 UNITS/ML 10ML VIAL ONE ×3 (06:11→17:00)
[2018-03-23 09:48] LABS: HEMATOCRIT 38.6 % (32.4-45.2); HEMOGLOBIN 12.9 GM/dL (10.7-15.3); MCH 29.7 pg (25.7-33.7); MCHC 33.4 g/dl (32.0-36.0); MEAN CELL VOLUME 88.8 fl (80-96); MEAN PLT VOLUME 8.6 fl (7.5-11.1); PLATELET COUNT 151 K/MM3 (134-434); RBC 4.35 M/mm3 (3.60-5.2); RDW 13.2 % (11.6-15.6); WHITE BLOOD COUNT 7.1 K/mm3 (4.0-10.0)
[2018-03-23] MEDS ORDERED: PATIENT'S OWN MEDICATION (NON-FORMULARY) (Ramipril [Altace] 10 MG) PO SCH (10:00)
[2018-03-23] MEDS ORDERED: FLUCONAZOLE 100 MG TABLET (UD) PO ONE (10:10)
[2018-03-23 10:21] LABS: ANION GAP 8 MMOL/L (8-16); BLOOD UREA NITROGEN 13 mg/dL (7-18); CALCIUM 8.2 mg/dL (8.5-10.1); CHLORIDE 103 mmol/L (98-107); CO2 26 mmol/L (21-32); POTASSIUM 4.3 mmol/L (3.5-5.1); SODIUM 137 mmol/L (136-145)
[2018-03-23 10:26] LABS: ALK PHOS 118 U/L (45-117); BILIRUBIN,TOTAL 0.2 mg/dL (0.2-1.0); CREATININE 0.8 mg/dL (0.55-1.02); SGOT/AST 18 U/L (15-37); SGPT/ALT 23 U/L (12-78); TOT PROT 6.4 g/dl (6.4-8.2)
[2018-03-23 10:41] LABS: GLUCOSE,RANDOM 338 mg/dL (74-106)
[2018-03-23] MEDS: ASPIRIN 81 MG CHEWABLE TABLETS PO SCH (10:46)
[2018-03-23] MEDS: PRENATAL VITAMINS W/ FOLIC ACID TABLET (FP) PO SCH (10:46)
[2018-03-23] MEDS: GABAPENTIN 300 MG CAPSULE (FP) PO SCH ×2 (10:46→22:51)
[2018-03-23] MEDS: NICOTINE 21 MG/24 HOURS TOPICAL PATCH TD SCH (10:47)
--- NOTE | 2018-03-23 12:04 | PN ---
S CIWA - CIWA Score Nausea/Vomitin-Mild Nausea/No Vomiting Muscle Tremors: 4-Moderate,w/Arms Extend Anxiety: 3 Agitation: 3 Paroxysmal Sweats: 1-Minimal Palms Moist Orientation: 0-Oriented Tacttile Disturbances: 1-Very Mild Itch/Numbness Auditory Disturbances: 0-None Visual Disturbances: 0-None Headache: 1-Very Mild CIWA-Ar Total Score: 14 BHS Progress Note (SOAP) Subjective: tremor sweat anxiety restlessness trouble sleep at night Objective: 03/23/18 11:57 Vital Signs Temperature 97.2 F L 03/23/18 09:28 Pulse Rate 77 03/23/18 09:28 Respiratory Rate 16 03/23/18 09:28 Blood Pressure 107/72 03/23/18 09:28 O2 Sat by Pulse Oximetry (%) Laboratory Last Values WBC 7.1 K/mm3 (4.0-10.0) 03/23/18 07:40 RBC 4.35 M/mm3 (3.60-5.2) 03/23/18 07:40 Hgb 12.9 GM/dL (10.7-15.3) 03/23/18 07:40 Hct 38.6 % (32.4-45.2) 03/23/18 07:40 MCV 88.8 fl (80-96) 03/23/18 07:40 MCH 29.7 pg (25.7-33.7) 03/23/18 07:40 MCHC 33.4 g/dl (32.0-36.0) 03/23/18 07:40 RDW 13.2 % (11.6-15.6) 03/23/18 07:40 Plt Count 151 K/MM3 (134-434) D 03/23/18 07:40 MPV 8.6 fl (7.5-11.1) D 03/23/18 07:40 Sodium 137 mmol/L (136-145) 03/23/18 07:40 Potassium 4.3 mmol/L (3.5-5.1) 03/23/18 07:40 Chloride 103 mmol/L (98-107) 03/23/18 07:40 Carbon Dioxide 26 mmol/L (21-32) 03/23/18 07:40 Anion Gap 8 MMOL/L (8-16) 03/23/18 07:40 BUN 13 mg/dL (7-18) 03/23/18 07:40 Creatinine 0.8 mg/dL (0.55-1.02) 03/23/18 07:40 Creat Clearance w eGFR > 60 (>60) 03/23/18 07:40 POC Glucometer 282 UNITS (80-120) 03/23/18 05:37 Random Glucose 338 mg/dL (74-106) H* 03/23/18 07:40 Calcium 8.2 mg/dL (8.5-10.1) L 03/23/18 07:40 Total Bilirubin 0.2 mg/dL (0.2-1.0) 03/23/18 07:40 AST 18 U/L (15-37) 03/23/18 07:40 ALT 23 U/L (12-78) 03/23/18 07:40 Alkaline Phosphatase 118 U/L (45-117) H 03/23/18 07:40 Total Protein 6.4 g/dl (6.4-8.2) 03/23/18 07:40 Albumin 3.0 g/dl (3.4-5.0) L 03/23/18 07:40 Urine Color Ltyellow 03/22/18 22:11 Urine Appearance Slcloudy 03/22/18 22:11 Urine pH 5.0 (5.0-8.0) 03/22/18 22:11 Ur Specific [place] 1.010 (1.001-1.035) 03/22/18 22:11 Urine Protein 2+ (NEGATIVE) H 03/22/18 22:11 Urine Glucose (UA) 3+ (NEGATIVE) H 03/22/18 22:11 Urine Ketones Negative (NEGATIVE) 03/22/18 22:11 Urine Blood Negative (NEGATIVE) 03/22/18 22:11 Urine Nitrite Negative (NEGATIVE) 03/22/18 22:11 Urine Bilirubin Negative (<2.0 mg/dL) 03/22/18 22:11 Urine Urobilinogen Negative mg/dL (0.2-1.0) 03/22/18 22:11 Ur Leukocyte Esterase Negative (NEGATIVE) 03/22/18 22:11 Urine WBC (Auto) <1 /hpf (3-5) 03/22/18 22:11 Urine RBC (Auto) <1 /hpf (0-3) 03/22/18 22:11 Ur Epithelial Cells Rare /HPF (FEW) 03/22/18 22:11 Urine Bacteria Rare /hpf (NONE SEEN) 03/22/18 22:11 Hyaline Casts 4 /lpf 03/22/18 22:11 lab noted health teaching on hyperglycemia related complications encourage calcium rich food intake Assessment: 03/23/18 11:58 alcohol withdrawal sx Plan: continue alcohol detox and diabetes management
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
[2018-03-23] MEDS: THIAMINE HCL 100 MG TABLET (FP) PO SCH (22:50)
[2018-03-23] MEDS: QUEtiapine FUMARATE 100 MG TABLET (FP) PO SCH (22:51)
[2018-03-23] MEDS: traZODone HCL 50 MG TABLET (FP) PO SCH (22:51)
[2018-03-23] MEDS: ATORVASTATIN CA 10 MG TABLET (FP) PO SCH (22:51)
[2018-03-23] MEDS: INSULIN (LEVEMIR) 100 UNITS/ML UNITS SQ SCH (22:52)
[2018-03-23] MEDS: CLOTRIMAZOLE 1% VAGINAL CREAM WITH APPLICATOR 45 GM TUBE VG SCH (22:53)
[2018-03-24] MEDS: INSULIN SLIDING SCALE (NOVOLOG) 1 VIAL SQ SCH ×5 (00:46→23:14)
[2018-03-24] MEDS ORDERED: INSULIN (NOVOLOG) ASPART 100 UNITS/ML 10ML VIAL ONE ×4 (06:03→23:12)
[2018-03-24] MEDS: chlordiazePOXIDE HCL 25 MG CAPSULE PO SCH ×3 (06:04→18:12)
[2018-03-24] MEDS: PRENATAL VITAMINS W/ FOLIC ACID TABLET (FP) PO SCH (10:39)
[2018-03-24] MEDS: ASPIRIN 81 MG CHEWABLE TABLETS PO SCH (10:39)
[2018-03-24] MEDS: NICOTINE 21 MG/24 HOURS TOPICAL PATCH TD SCH (10:40)
[2018-03-24] MEDS: GABAPENTIN 300 MG CAPSULE (FP) PO SCH ×2 (10:40→23:03)
[2018-03-24] MEDS: RAMIPRIL 5 MG CAPSULE (FP) PO SCH (10:40)
[2018-03-24] MEDS: CITALOPRAM HYDROBROMIDE 20 MG TABLET (FP) PO SCH (10:40)
--- NOTE | 2018-03-24 11:49 | PN ---
S CIWA - CIWA Score Nausea/Vomitin-Mild Nausea/No Vomiting Muscle Tremors: 3 Anxiety: 3 Agitation: 3 Paroxysmal Sweats: 1-Minimal Palms Moist Orientation: 0-Oriented Tacttile Disturbances: 1-Very Mild Itch/Numbness Auditory Disturbances: 0-None Visual Disturbances: 0-None Headache: 0-None Present CIWA-Ar Total Score: 12 BHS Progress Note (SOAP) Subjective: sweat tremor gi distress trouble sleep at night low energy Objective: 03/24/18 11:51 Vital Signs Temperature 97.5 F L 03/24/18 09:42 Pulse Rate 99 H 03/24/18 09:42 Respiratory Rate 16 03/24/18 09:42 Blood Pressure 114/77 03/24/18 09:42 O2 Sat by Pulse Oximetry (%) Laboratory Last Values WBC 7.1 K/mm3 (4.0-10.0) 03/23/18 07:40 RBC 4.35 M/mm3 (3.60-5.2) 03/23/18 07:40 Hgb 12.9 GM/dL (10.7-15.3) 03/23/18 07:40 Hct 38.6 % (32.4-45.2) 03/23/18 07:40 MCV 88.8 fl (80-96) 03/23/18 07:40 MCH 29.7 pg (25.7-33.7) 03/23/18 07:40 MCHC 33.4 g/dl (32.0-36.0) 03/23/18 07:40 RDW 13.2 % (11.6-15.6) 03/23/18 07:40 Plt Count 151 K/MM3 (134-434) D 03/23/18 07:40 MPV 8.6 fl (7.5-11.1) D 03/23/18 07:40 Sodium 137 mmol/L (136-145) 03/23/18 07:40 Potassium 4.3 mmol/L (3.5-5.1) 03/23/18 07:40 Chloride 103 mmol/L (98-107) 03/23/18 07:40 Carbon Dioxide 26 mmol/L (21-32) 03/23/18 07:40 Anion Gap 8 MMOL/L (8-16) 03/23/18 07:40 BUN 13 mg/dL (7-18) 03/23/18 07:40 Creatinine 0.8 mg/dL (0.55-1.02) 03/23/18 07:40 Creat Clearance w eGFR > 60 (>60) 03/23/18 07:40 POC Glucometer 403 UNITS (80-120) 03/24/18 11:20 Random Glucose 338 mg/dL (74-106) H* 03/23/18 07:40 Calcium 8.2 mg/dL (8.5-10.1) L 03/23/18 07:40 Total Bilirubin 0.2 mg/dL (0.2-1.0) 03/23/18 07:40 AST 18 U/L (15-37) 03/23/18 07:40 ALT 23 U/L (12-78) 03/23/18 07:40 Alkaline Phosphatase 118 U/L (45-117) H 03/23/18 07:40 Total Protein 6.4 g/dl (6.4-8.2) 03/23/18 07:40 Albumin 3.0 g/dl (3.4-5.0) L 03/23/18 07:40 Urine Color Ltyellow 03/22/18 22:11 Urine Appearance Slcloudy 03/22/18 22:11 Urine pH 5.0 (5.0-8.0) 03/22/18 22:11 Ur Specific [place] 1.010 (1.001-1.035) 03/22/18 22:11 Urine Protein 2+ (NEGATIVE) H 03/22/18 22:11 Urine Glucose (UA) 3+ (NEGATIVE) H 03/22/18 22:11 Urine Ketones Negative (NEGATIVE) 03/22/18 22:11 Urine Blood Negative (NEGATIVE) 03/22/18 22:11 Urine Nitrite Negative (NEGATIVE) 03/22/18 22:11 Urine Bilirubin Negative (<2.0 mg/dL) 03/22/18 22:11 Urine Urobilinogen Negative mg/dL (0.2-1.0) 03/22/18 22:11 Ur Leukocyte Esterase Negative (NEGATIVE) 03/22/18 22:11 Urine WBC (Auto) <1 /hpf (3-5) 03/22/18 22:11 Urine RBC (Auto) <1 /hpf (0-3) 03/22/18 22:11 Ur Epithelial Cells Rare /HPF (FEW) 03/22/18 22:11 Urine Bacteria Rare /hpf (NONE SEEN) 03/22/18 22:11 Hyaline Casts 4 /lpf 03/22/18 22:11 RPR Titer Nonreactive (NONREACTIVE) 03/23/18 07:40 HIV 1&2 Antibody Screen Negative 03/23/18 09:30 HIV P24 Antigen Negative 03/23/18 09:30 lab noted Assessment: 03/24/18 11:55 withdrawal sx 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
[2018-03-24] MEDS: INSULIN (NOVOLOG) ASPART 100 UNITS/ML 10ML VIAL SQ SCH (17:21)
[2018-03-24] MEDS: THIAMINE HCL 100 MG TABLET (FP) PO SCH (23:03)
[2018-03-24] MEDS: chlordiazePOXIDE 5 MG CAPSULE PO SCH (23:03)
[2018-03-24] MEDS: QUEtiapine FUMARATE 100 MG TABLET (FP) PO SCH (23:04)
[2018-03-24] MEDS: CLOTRIMAZOLE 1% VAGINAL CREAM WITH APPLICATOR 45 GM TUBE VG SCH (23:04)
[2018-03-24] MEDS: ATORVASTATIN CA 10 MG TABLET (FP) PO SCH (23:04)
[2018-03-24] MEDS: traZODone HCL 50 MG TABLET (FP) PO SCH (23:04)
[2018-03-24] MEDS: INSULIN (LEVEMIR) 100 UNITS/ML UNITS SQ SCH (23:14)
[2018-03-25] MEDS: chlordiazePOXIDE 5 MG CAPSULE PO SCH ×3 (06:02→18:12)
[2018-03-25] MEDS ORDERED: INSULIN (NOVOLOG) ASPART 100 UNITS/ML 10ML VIAL ONE ×2 (07:48→12:03)
[2018-03-25] MEDS: INSULIN SLIDING SCALE (NOVOLOG) 1 VIAL SQ SCH ×3 (08:07→18:03)
[2018-03-25] MEDS: INSULIN (NOVOLOG) ASPART 100 UNITS/ML 10ML VIAL SQ SCH ×3 (08:07→18:03)
[2018-03-25] MEDS: GABAPENTIN 300 MG CAPSULE (FP) PO SCH ×2 (10:36→22:24)
[2018-03-25] MEDS: PRENATAL VITAMINS W/ FOLIC ACID TABLET (FP) PO SCH (10:36)
[2018-03-25] MEDS: ASPIRIN 81 MG CHEWABLE TABLETS PO SCH (10:36)
[2018-03-25] MEDS: CITALOPRAM HYDROBROMIDE 20 MG TABLET (FP) PO SCH (10:36)
[2018-03-25] MEDS: NICOTINE 21 MG/24 HOURS TOPICAL PATCH TD SCH (10:37)
[2018-03-25] MEDS: RAMIPRIL 5 MG CAPSULE (FP) PO SCH (10:37)
--- NOTE | 2018-03-25 14:21 | PN ---
S Progress Note (SOAP) Subjective: reports all medications filled on 03/15/18 with 30 days supply states that average bgm at home was around 500 aic 9.9 no tremor less sweat eating better no gi distress Objective: 03/25/18 14:30 Vital Signs Temperature 98.1 F 03/25/18 13:18 Pulse Rate 83 03/25/18 13:18 Respiratory Rate 18 03/25/18 13:18 Blood Pressure 110/65 03/25/18 13:18 O2 Sat by Pulse Oximetry (%) Laboratory Last Values WBC 7.1 K/mm3 (4.0-10.0) 03/23/18 07:40 RBC 4.35 M/mm3 (3.60-5.2) 03/23/18 07:40 Hgb 12.9 GM/dL (10.7-15.3) 03/23/18 07:40 Hct 38.6 % (32.4-45.2) 03/23/18 07:40 MCV 88.8 fl (80-96) 03/23/18 07:40 MCH 29.7 pg (25.7-33.7) 03/23/18 07:40 MCHC 33.4 g/dl (32.0-36.0) 03/23/18 07:40 RDW 13.2 % (11.6-15.6) 03/23/18 07:40 Plt Count 151 K/MM3 (134-434) D 03/23/18 07:40 MPV 8.6 fl (7.5-11.1) D 03/23/18 07:40 Sodium 137 mmol/L (136-145) 03/23/18 07:40 Potassium 4.3 mmol/L (3.5-5.1) 03/23/18 07:40 Chloride 103 mmol/L (98-107) 03/23/18 07:40 Carbon Dioxide 26 mmol/L (21-32) 03/23/18 07:40 Anion Gap 8 MMOL/L (8-16) 03/23/18 07:40 BUN 13 mg/dL (7-18) 03/23/18 07:40 Creatinine 0.8 mg/dL (0.55-1.02) 03/23/18 07:40 Creat Clearance w eGFR > 60 (>60) 03/23/18 07:40 POC Glucometer 367 UNITS (80-120) 03/25/18 11:55 Random Glucose 338 mg/dL (74-106) H* 03/23/18 07:40 Hemoglobin A1c % 9.9 % (4.8-6.0) H 03/25/18 07:30 Calcium 8.2 mg/dL (8.5-10.1) L 03/23/18 07:40 Total Bilirubin 0.2 mg/dL (0.2-1.0) 03/23/18 07:40 AST 18 U/L (15-37) 03/23/18 07:40 ALT 23 U/L (12-78) 03/23/18 07:40 Alkaline Phosphatase 118 U/L (45-117) H 03/23/18 07:40 Total Protein 6.4 g/dl (6.4-8.2) 03/23/18 07:40 Albumin 3.0 g/dl (3.4-5.0) L 03/23/18 07:40 Urine Color Ltyellow 03/22/18 22:11 Urine Appearance Slcloudy 03/22/18 22:11 Urine pH 5.0 (5.0-8.0) 03/22/18 22:11 Ur Specific [place] 1.010 (1.001-1.035) 03/22/18 22:11 Urine Protein 2+ (NEGATIVE) H 03/22/18 22:11 Urine Glucose (UA) 3+ (NEGATIVE) H 03/22/18 22:11 Urine Ketones Negative (NEGATIVE) 03/22/18 22:11 Urine Blood Negative (NEGATIVE) 03/22/18 22:11 Urine Nitrite Negative (NEGATIVE) 03/22/18 22:11 Urine Bilirubin Negative (<2.0 mg/dL) 03/22/18 22:11 Urine Urobilinogen Negative mg/dL (0.2-1.0) 03/22/18 22:11 Ur Leukocyte Esterase Negative (NEGATIVE) 03/22/18 22:11 Urine WBC (Auto) <1 /hpf (3-5) 03/22/18 22:11 Urine RBC (Auto) <1 /hpf (0-3) 03/22/18 22:11 Ur Epithelial Cells Rare /HPF (FEW) 03/22/18 22:11 Urine Bacteria Rare /hpf (NONE SEEN) 03/22/18 22:11 Hyaline Casts 4 /lpf 03/22/18 22:11 RPR Titer Nonreactive (NONREACTIVE) 03/23/18 07:40 HIV 1&2 Antibody Screen Negative 03/23/18 09:30 HIV P24 Antigen Negative 03/23/18 09:30 lab noted Assessment: 03/25/18 14:31 mild withdrawal sx diabetes ii Plan: continue detox discuss hyperglycemia
--- NOTE | 2018-03-25 14:22 | EKG ---
Test Reason : Blood Pressure : / mmHG Vent. Rate : 070 BPM Atrial Rate : 070 BPM P-R Int : 102 ms QRS Dur : 074 ms QT Int : 422 ms P-R-T Axes : 062 062 064 degrees QTc Int : 455 ms SINUS RHYTHM WITH SHORT AR OTHERWISE NORMAL ECG WHEN COMPARED WITH ECG OF 08-NOV-2016 22:07, PREMATURE VENTRICULAR COMPLEXES ARE NO LONGER PRESENT Confirmed by BOBO LOCK MD ([id number]) on 03/25/2018 2:21:52 PM Referred By: Confirmed By:BOBO LOCK MD
[2018-03-25] MEDS ORDERED: INSULIN (NOVOLOG) ASPART 100 UNITS/ML 10ML VIAL SQ SCH (17:51)
[2018-03-25] MEDS: THIAMINE HCL 100 MG TABLET (FP) PO SCH (22:23)
[2018-03-25] MEDS: chlordiazePOXIDE HCL 10 MG CAPSULE PO SCH (22:23)
[2018-03-25] MEDS: INSULIN (LEVEMIR) 100 UNITS/ML UNITS SQ SCH (22:24)
[2018-03-25] MEDS: ATORVASTATIN CA 10 MG TABLET (FP) PO SCH (22:24)
[2018-03-25] MEDS: CLOTRIMAZOLE 1% VAGINAL CREAM WITH APPLICATOR 45 GM TUBE VG SCH (22:24)
[2018-03-25] MEDS: traZODone HCL 50 MG TABLET (FP) PO SCH (22:24)
[2018-03-25] MEDS: QUEtiapine FUMARATE 100 MG TABLET (FP) PO SCH (22:24)
--- NOTE | 2018-03-26 04:52 | PN ---
[facility] Progress Note Note: SEEN FOR UNWITNESSED FALL IN THE BATHROOM. CLIENT REPORTS SHE ATTEMPTED TO SIT ON THE TOILET WHILE FEELING "DIZZY" AND MISSED THE TOILET FALL ON HER "BUTT". CLIENT DENIES, LOC, HEAD TRAUMA, C.P., SOB. Vital Signs 03/25/18 03/26/18 03/26/18 23:10 00:30 03:30 Temperature 97.8 F Pulse Rate 84 Respiratory 18 18 18 Rate Blood Pressure 130/80 03/26/18 04:30 Temperature 96.8 F L Pulse Rate 84 Respiratory 18 Rate Blood Pressure 98/74 OBSERVED LYING IN BED AWAKE ALERT NAD A/O/ X3 HEENT- NCAT, PEERLA, EOMI CV- RRR SKIN INTACT EXTREMITIES FROM X4 W/O LIMITATIONS BACK/ BUTTUCKS- NL INSPECTION AND FROM. NO INJURIES NOTED P- UNWITNESSED FALL, HYPOTENSION FALL PROTOCOL #[address]- RISK TO INCLUDE POSSIBLE BLEEDING IN THE HEAD D/W CLIENT. SHE VERBALIZED UNDERSTANDING AND STATED THAT SHE DID NOT HIT HER HEAD. PITCHER OF WATER AT BEDSIDE FOR INCREASE PO HYDRATION CONT TO MONITOR CLOSELY CLINICALLY
[2018-03-26] MEDS ORDERED: INSULIN (NOVOLOG) ASPART 100 UNITS/ML 10ML VIAL ONE ×2 (05:03→11:58)
[2018-03-26] MEDS: INSULIN SLIDING SCALE (NOVOLOG) 1 VIAL SQ SCH ×2 (06:25→12:00)
[2018-03-26] MEDS ORDERED: INSULIN SLIDING SCALE (NOVOLOG) 1 VIAL SQ SCH ×2 (07:00)
[2018-03-26] MEDS: chlordiazePOXIDE HCL 10 MG CAPSULE PO SCH ×2 (07:43→10:49)
[2018-03-26] MEDS: PRENATAL VITAMINS W/ FOLIC ACID TABLET (FP) PO SCH (10:42)
[2018-03-26] MEDS: ASPIRIN 81 MG CHEWABLE TABLETS PO SCH (10:42)
[2018-03-26] MEDS: CITALOPRAM HYDROBROMIDE 20 MG TABLET (FP) PO SCH (10:42)
[2018-03-26] MEDS: GABAPENTIN 300 MG CAPSULE (FP) PO SCH (10:42)
[2018-03-26] MEDS: NICOTINE 21 MG/24 HOURS TOPICAL PATCH TD SCH (10:43)
[2018-03-26] MEDS: RAMIPRIL 5 MG CAPSULE (FP) PO SCH (10:43)
[2018-03-26 15:02] VITALS: BP 105/71; PULSE 87; TEMP 98.1
== END 2018-03-26 14:52 | disposition other institution (70) | DRG 774 ==
LOC: YASAS 12:32 → Y6N 17:54
PROC: HZ2ZZZZ Detoxification Services for Substance Abuse Treatment (ICD-10-PCS; principal; 2018-03-22)
DX: F10.230 Alcohol dependence with withdrawal, uncomplicated (principal); F14.20 Cocaine dependence, uncomplicated; F17.210 Nicotine dependence, cigarettes, uncomplicated; F19.24 Other psychoactive substance dependence with psychoactive substance-induced mood disorder; F39 Unspecified mood [affective] disorder; G62.9 Polyneuropathy, unspecified; I10 Essential (primary) hypertension; B37.3 Candidiasis of vulva and vagina; E11.9 Type 2 diabetes mellitus without complications; Z79.4 Long term (current) use of insulin; K21.9 Gastro-esophageal reflux disease without esophagitis; Z91.5 Personal history of self-harm; Z59.0 Homelessness
CPT/HCPCS: 36415; 80053; 81003; 81015; 82962; 83036; 85027; 86593; 87389; 93005; 93010

== ENCOUNTER 2018-03-26 15:15 | Inpatient (IN) | payer OTHER ==
[2018-03-26] MEDS ORDERED: ACETAMINOPHEN 325 MG TABLET (FP) PO PRN (15:34)
[2018-03-26] MEDS ORDERED: guaiFENesin/D-METHORPHAN HB 10 ML UNIT-DOSE CUPS PO PRN (15:34)
[2018-03-26] MEDS ORDERED: MENTHOL/PHENOL 1 EACH UD MM PRN (15:34)
[2018-03-26] MEDS ORDERED: LOPERAMIDE HCL 2 MG CAPSULE PO PRN (15:34)
[2018-03-26] MEDS ORDERED: MAGNESIUM CITRATE 300 ML BOTTLE PO PRN (15:34)
[2018-03-26] MEDS ORDERED: NICOTINE 14 MG/24 HOURS TOPICAL PATCH TD PRN (15:34)
[2018-03-26] MEDS ORDERED: MAGNESIUM HYDROX 2400MG/30ML ORAL SUSPENSION 30 ML CUP PO PRN (15:34)
[2018-03-26] MEDS ORDERED: P-EPHED 60MG/TRIPROLIDI 2.5MG TABLET PO PRN (15:34)
[2018-03-26] MEDS ORDERED: NICOTINE POLACRILEX 2 MG GUM BUC PRN (15:34)
[2018-03-26] MEDS ORDERED: MAG HYDROX/AL HYDROX/SIMETH 30 ML UNIT-DOSE CUP PO PRN (15:34)
--- NOTE | 2018-03-26 16:09 | HP ---
OLYA [facility]EE Rehab Assess/Revision - Admission History Admitted to Rehab from: [facility] Date of Admission to Rehab: 03/26/18 - Vital signs Vital Signs: Vital Signs Period Temp Pulse Resp BP Sys/Malik Pulse Ox Last 24 Hr 98.4 F 85 17 93/67 - Findings Detox History & Physical reviewed: Yes Concur with findings: Yes Comments/Additional Findings: TRANSFERRED FROM DETOX TO REHAB ADMISSION PER PROTOCOL Inpatient Rehab Admission - Initial Determination Are CD services needed?: Yes Free of communicable disease: Yes Not in need of hospitalization: Yes - Rehab Admission Criteria Previous failed treatment: Yes Poor recovery environment: Yes Comorbidities: Yes Lacks judgement: No Patient is meeting Inpatient Rehab admission criteria:: Yes
[2018-03-26] MEDS: INSULIN (NOVOLOG) ASPART 100 UNITS/ML 10ML VIAL SQ SCH (16:56)
[2018-03-26] MEDS: INSULIN SLIDING SCALE (NOVOLOG) 1 VIAL SQ SCH ×2 (16:58→21:17)
--- NOTE | 2018-03-26 18:46 | PN ---
S Progress Note Note: Psychiatric nurse practitioner note: Pt is a new admission to rehab. Pt transferred from [address] [place] [address]. Will continue patient's current medications of celexa 20mg + Seroquel 100mg qhs + Trazodone 50mg qhs.
[2018-03-26] MEDS: RANITIDINE HCL 150 MG TABLET (FP) PO SCH (21:13)
[2018-03-26] MEDS: QUEtiapine FUMARATE 100 MG TABLET (FP) PO SCH (21:13)
[2018-03-26] MEDS: THIAMINE HCL 100 MG TABLET (FP) PO SCH (21:13)
[2018-03-26] MEDS: traZODone HCL 50 MG TABLET (FP) PO SCH (21:13)
[2018-03-26] MEDS: GABAPENTIN 300 MG CAPSULE (FP) PO SCH (21:13)
[2018-03-26] MEDS: INSULIN (LEVEMIR) 100 UNITS/ML UNITS SQ SCH (21:15)
[2018-03-26] MEDS ORDERED: MELATONIN 5 MG TABLETS PO PRN (22:00)
[2018-03-26] MEDS ORDERED: PATIENT'S OWN MEDICATION (NON-FORMULARY) (Gabapentin [Neurontin] 600 MG) PO SCH (22:00)
[2018-03-26] MEDS ORDERED: PT OWN MED DRAWER 7, Y5N ONE (23:08)
[2018-03-27] MEDS: INSULIN (NOVOLOG) ASPART 100 UNITS/ML 10ML VIAL SQ SCH ×3 (07:53→17:02)
[2018-03-27] MEDS: INSULIN SLIDING SCALE (NOVOLOG) 1 VIAL SQ SCH ×4 (07:53→21:52)
[2018-03-27] MEDS ORDERED: INSULIN (NOVOLOG) ASPART 100 UNITS/ML 10ML VIAL ONE ×2 (07:57→11:22)
[2018-03-27] MEDS ORDERED: PT OWN MED DRAWER 7, Y5N ONE (08:19)
--- NOTE | 2018-03-27 09:22 | HP ---
Psychiatrist Admission - Data Date of interview: 03/27/18 Admission source: [address] [place] [address] Identifying data: This is one of the multiple admissions to [facility] inpatient rehabilitation for this 48 yo AA single female,undomiciled,unemployed,no financial support. Medical History: DM,HTN,Hyperlipidemia. Psychiatric History: Long and extensive psychiatric history.Patient is poor historrain.She reports a few psychiatric hospitalizations due to severe depression,alcohol/drug use.Patient was dx with MDD.She was on different psychotropic medications.One suicidal attempt via DOD more than 20 yo.Patient assigned to [facility]'s [facility] but stopped to see a psychiatrist a few weeks ago. patient restarted her psych medications while being in detox:Celexa 20 mg po daily,Seroquel 100 mg po hs and Traodone 50 mg po hs and is willing to continue to take above medications while in inpatient rehabilitation. Physical/Sexual Abuse/Trauma History: denies Vital Signs: Vital Signs - 24 hr 03/26/18 03/26/18 03/26/18 15:22 16:30 20:30 Temperature 98.4 F 99.0 F Pulse Rate 85 76 83 Respiratory 17 18 18 Rate Blood Pressure 93/67 106/73 106/70 03/27/18 03/27/18 03/27/18 00:30 03:30 04:30 Temperature 98.5 F 98.3 F Pulse Rate 84 79 Respiratory 18 18 18 Rate Blood Pressure 108/71 97/66 03/27/18 06:00 Temperature 98.5 F Pulse Rate 88 Respiratory 18 Rate Blood Pressure 104/72 Allergies/Adverse Reactions: Allergies Allergy/AdvReac Type Severity Reaction Status Date / Time No Known Allergies Allergy Verified 03/22/18 14:42 Date of last physical exam: 03/27/18 Concur with the findings of this exam: Yes - Substance Abuse/Tx History Hx Alcohol Use: Yes (drinking since 16 yo,1,5 pint of vodka) Hx Substance Use: Yes (started cocaine/crack since 18 yo,$100 daily) Substance Use Type: Alcohol, Cocaine Hx Substance Use Treatment: Yes (reports longest abstinence about 2 years) Mental Status Exam - Mental Status Exam Alert and Oriented to: Time, Place, Person Cognitive Function: Grossly Intact Patient Appearance: Well Groomed Mood: Sad Affect: Mood Congruent Patient Behavior: Cooperative Speech Pattern: Clear Voice Loudness: Normal Thought Process: Goal Oriented Thought Disorder: Not Present Hallucinations: Denies Suicidal Ideation: Denies Homicidal Ideation: Denies Insight/Judgement: Fair Sleep: Fair Appetite: Fair Muscle strength/Tone: Normal Gait/Station: Normal Psychiatric Findings - Problem List ([place] 1, 2,3) (1) Cocaine dependence Current Visit: Yes Status: Chronic Qualifiers: Substance use status: uncomplicated Qualified Code(s): F14.20 - Cocaine dependence, uncomplicated (2) Substance induced mood disorder Current Visit: Yes Status: Chronic (3) Alcohol dependence Current Visit: Yes Status: Chronic (4) Neuropathy Current Visit: Yes Status: Chronic (5) Nicotine dependence Current Visit: Yes Status: Chronic Qualifiers: Nicotine product type: cigarettes Substance use status: uncomplicated Qualified Code(s): F17.210 - Nicotine dependence, cigarettes, uncomplicated (6) Type 1 diabetes Current Visit: Yes Status: Chronic - Initial Treatment Plan Initial Treatment Plan: Trazodone 50 mg po hs,Seroquel 100 mg po hs and Celexa 20 mg po daily.
[2018-03-27] MEDS: RAMIPRIL 5 MG CAPSULE (FP) PO SCH (09:23)
[2018-03-27] MEDS: ATORVASTATIN CA 10 MG TABLET (FP) PO SCH (09:23)
[2018-03-27] MEDS: ASPIRIN 81 MG CHEWABLE TABLETS PO SCH (09:23)
[2018-03-27] MEDS: CITALOPRAM HYDROBROMIDE 20 MG TABLET (FP) PO SCH (09:23)
[2018-03-27] MEDS: RANITIDINE HCL 150 MG TABLET (FP) PO SCH ×2 (09:24→21:48)
[2018-03-27] MEDS: GABAPENTIN 300 MG CAPSULE (FP) PO SCH ×2 (09:24→21:48)
[2018-03-27] MEDS: PRENATAL VITAMINS W/ FOLIC ACID TABLET (FP) PO SCH (09:24)
[2018-03-27] MEDS ORDERED: ATORVASTATIN CA 10 MG TABLET (FP) PO SCH (10:00)
[2018-03-27] MEDS ORDERED: PATIENT'S OWN MEDICATION (NON-FORMULARY) (Ramipril [Altace] 10 MG) PO SCH (10:00)
[2018-03-27] MEDS: THIAMINE HCL 100 MG TABLET (FP) PO SCH (21:48)
[2018-03-27] MEDS: QUEtiapine FUMARATE 100 MG TABLET (FP) PO SCH (21:48)
[2018-03-27] MEDS: traZODone HCL 50 MG TABLET (FP) PO SCH (21:48)
[2018-03-27] MEDS: INSULIN (LEVEMIR) 100 UNITS/ML UNITS SQ SCH (21:51)
[2018-03-28] MEDS: INSULIN SLIDING SCALE (NOVOLOG) 1 VIAL SQ SCH ×4 (07:49→21:24)
[2018-03-28] MEDS: INSULIN (NOVOLOG) ASPART 100 UNITS/ML 10ML VIAL SQ SCH ×3 (07:49→17:06)
[2018-03-28] MEDS ORDERED: INSULIN (NOVOLOG) ASPART 100 UNITS/ML 10ML VIAL ONE ×3 (07:50→17:01)
[2018-03-28] MEDS: ASPIRIN 81 MG CHEWABLE TABLETS PO SCH (10:20)
[2018-03-28] MEDS: RAMIPRIL 5 MG CAPSULE (FP) PO SCH (10:20)
[2018-03-28] MEDS: GABAPENTIN 300 MG CAPSULE (FP) PO SCH ×2 (10:20→21:20)
[2018-03-28] MEDS: ATORVASTATIN CA 10 MG TABLET (FP) PO SCH (10:20)
[2018-03-28] MEDS: PRENATAL VITAMINS W/ FOLIC ACID TABLET (FP) PO SCH (10:20)
[2018-03-28] MEDS: CITALOPRAM HYDROBROMIDE 20 MG TABLET (FP) PO SCH (10:21)
[2018-03-28] MEDS: RANITIDINE HCL 150 MG TABLET (FP) PO SCH ×2 (10:21→21:20)
--- NOTE | 2018-03-28 14:02 | PN ---
S Progress Note Note: Vital Signs Temperature 98.6 F 03/28/18 06:41 Pulse Rate 75 03/28/18 09:07 Respiratory Rate 18 03/28/18 06:41 Blood Pressure 142/83 03/28/18 09:07 O2 Sat by Pulse Oximetry (%) Laboratory Last Values POC Glucometer 284 UNITS (80-120) 03/28/18 11:50 Patient c/o feeling dizzy, vertigo, urinary frequency since completing detox. patient AOx3 no distress no adventitious breath sounds ambulating in the unit independently skin intact no erythema or lesions - urinary frequency - vertigo Plan: meclizine 12.5 mg PO q6h PRN increase PO fluids u/a and U/C continue to monitor
[2018-03-28] MEDS: MECLIZINE HCL 12.5 MG TABLET PO SCH (17:05)
[2018-03-28] MEDS: QUEtiapine FUMARATE 100 MG TABLET (FP) PO SCH (21:20)
[2018-03-28] MEDS: traZODone HCL 50 MG TABLET (FP) PO SCH (21:20)
[2018-03-28] MEDS: THIAMINE HCL 100 MG TABLET (FP) PO SCH (21:20)
[2018-03-28] MEDS: INSULIN (LEVEMIR) 100 UNITS/ML UNITS SQ SCH (21:23)
[2018-03-29] MEDS ORDERED: INSULIN (LEVEMIR) 100 UNITS/ML UNITS SQ ONE (00:03)
[2018-03-29] MEDS ORDERED: PT OWN MED DRAWER 7, Y5N ONE ×3 (00:09→22:29)
[2018-03-29 00:41] LABS: URINE APPEARANCE SLCLOUDY; URINE BILIRUBIN NEGATIVE (<2.0 mg/dL); URINE COLOR LTYELLOW; URINE GLUCOSE (UA) 3+ (NEGATIVE); URINE KETONE NEGATIVE (NEGATIVE); URINE LEUK ESTERASE NEGATIVE (NEGATIVE); URINE NITRITE NEGATIVE (NEGATIVE); URINE PROTEIN NEGATIVE (NEGATIVE); URINE UROBILINOGEN NEGATIVE mg/dL (0.2-1.0)
[2018-03-29] MEDS: MECLIZINE HCL 12.5 MG TABLET PO SCH ×5 (00:59→23:20)
[2018-03-29] MEDS: INSULIN (NOVOLOG) ASPART 100 UNITS/ML 10ML VIAL SQ SCH ×3 (06:44→16:46)
[2018-03-29] MEDS: INSULIN SLIDING SCALE (NOVOLOG) 1 VIAL SQ SCH ×4 (06:45→21:19)
[2018-03-29] MEDS: RAMIPRIL 5 MG CAPSULE (FP) PO SCH (10:30)
[2018-03-29] MEDS: RANITIDINE HCL 150 MG TABLET (FP) PO SCH ×2 (10:31→21:14)
[2018-03-29] MEDS: GABAPENTIN 300 MG CAPSULE (FP) PO SCH ×2 (10:31→21:14)
[2018-03-29] MEDS: PRENATAL VITAMINS W/ FOLIC ACID TABLET (FP) PO SCH (10:31)
[2018-03-29] MEDS: ASPIRIN 81 MG CHEWABLE TABLETS PO SCH (10:31)
[2018-03-29] MEDS: CITALOPRAM HYDROBROMIDE 20 MG TABLET (FP) PO SCH (10:31)
[2018-03-29] MEDS: ATORVASTATIN CA 10 MG TABLET (FP) PO SCH (10:32)
[2018-03-29] MEDS ORDERED: INSULIN (NOVOLOG) ASPART 100 UNITS/ML 10ML VIAL ONE ×2 (12:12→13:24)
[2018-03-29] MEDS ORDERED: INSULIN (NOVOLOG) ASPART 100 UNITS/ML 10ML VIAL SQ ONE (12:42)
[2018-03-29] MEDS: QUEtiapine FUMARATE 100 MG TABLET (FP) PO SCH (21:14)
[2018-03-29] MEDS: traZODone HCL 50 MG TABLET (FP) PO SCH (21:15)
[2018-03-29] MEDS: THIAMINE HCL 100 MG TABLET (FP) PO SCH (21:15)
[2018-03-29] MEDS: INSULIN (LEVEMIR) 100 UNITS/ML UNITS SQ SCH (21:19)
[2018-03-29] MEDS ORDERED: NICOTINE POLACRILEX 2 MG GUM BUC ONE (22:28)
[2018-03-30] MEDS: INSULIN (NOVOLOG) ASPART 100 UNITS/ML 10ML VIAL SQ SCH ×3 (06:39→16:49)
[2018-03-30] MEDS: INSULIN SLIDING SCALE (NOVOLOG) 1 VIAL SQ SCH ×4 (06:40→21:03)
[2018-03-30] MEDS: MECLIZINE HCL 12.5 MG TABLET PO SCH ×4 (06:40→23:38)
[2018-03-30] MEDS: CITALOPRAM HYDROBROMIDE 20 MG TABLET (FP) PO SCH (09:34)
[2018-03-30] MEDS: PRENATAL VITAMINS W/ FOLIC ACID TABLET (FP) PO SCH (09:34)
[2018-03-30] MEDS: ASPIRIN 81 MG CHEWABLE TABLETS PO SCH (09:34)
[2018-03-30] MEDS: ATORVASTATIN CA 10 MG TABLET (FP) PO SCH (09:34)
[2018-03-30] MEDS: RANITIDINE HCL 150 MG TABLET (FP) PO SCH ×2 (09:34→21:04)
[2018-03-30] MEDS: GABAPENTIN 300 MG CAPSULE (FP) PO SCH ×2 (09:34→21:04)
[2018-03-30] MEDS: RAMIPRIL 5 MG CAPSULE (FP) PO SCH (09:34)
[2018-03-30] MEDS ORDERED: INSULIN (NOVOLOG) ASPART 100 UNITS/ML 10ML VIAL ONE ×3 (11:43→16:47)
[2018-03-30] MEDS ORDERED: INSULIN (NOVOLOG) ASPART 100 UNITS/ML 10ML VIAL SQ ONE (13:30)
--- NOTE | 2018-03-30 13:35 | PN ---
S Progress Note Note: TC from nurse - BGM >600 - will give 15u NPH and repeat BGM in one hour. Prevous BGM at 11:40 also >600 and patient received 17u NPH at that time.
[2018-03-30] MEDS: traZODone HCL 50 MG TABLET (FP) PO SCH (21:04)
[2018-03-30] MEDS: THIAMINE HCL 100 MG TABLET (FP) PO SCH (21:04)
[2018-03-30] MEDS: QUEtiapine FUMARATE 100 MG TABLET (FP) PO SCH (21:04)
[2018-03-30] MEDS: INSULIN (LEVEMIR) 100 UNITS/ML UNITS SQ SCH (21:05)
[2018-03-30] MEDS ORDERED: PT OWN MED DRAWER 7, Y5N ONE (22:08)
[2018-03-31] MEDS: MECLIZINE HCL 12.5 MG TABLET PO SCH ×3 (06:41→16:16)
[2018-03-31] MEDS: INSULIN SLIDING SCALE (NOVOLOG) 1 VIAL SQ SCH ×4 (07:59→21:14)
[2018-03-31] MEDS: INSULIN (NOVOLOG) ASPART 100 UNITS/ML 10ML VIAL SQ SCH ×3 (07:59→16:43)
[2018-03-31] MEDS: ASPIRIN 81 MG CHEWABLE TABLETS PO SCH (09:54)
[2018-03-31] MEDS: ATORVASTATIN CA 10 MG TABLET (FP) PO SCH (09:55)
[2018-03-31] MEDS: RANITIDINE HCL 150 MG TABLET (FP) PO SCH ×2 (09:55→21:16)
[2018-03-31] MEDS: GABAPENTIN 300 MG CAPSULE (FP) PO SCH ×2 (09:55→21:16)
[2018-03-31] MEDS: RAMIPRIL 5 MG CAPSULE (FP) PO SCH (09:55)
[2018-03-31] MEDS: CITALOPRAM HYDROBROMIDE 20 MG TABLET (FP) PO SCH (09:55)
[2018-03-31] MEDS: PRENATAL VITAMINS W/ FOLIC ACID TABLET (FP) PO SCH (09:55)
[2018-03-31] MEDS ORDERED: INSULIN (NOVOLOG) ASPART 100 UNITS/ML 10ML VIAL ONE ×2 (11:59→12:14)
[2018-03-31] MEDS: INSULIN (LEVEMIR) 100 UNITS/ML UNITS SQ SCH (21:14)
[2018-03-31] MEDS: traZODone HCL 50 MG TABLET (FP) PO SCH (21:16)
[2018-03-31] MEDS: THIAMINE HCL 100 MG TABLET (FP) PO SCH (21:16)
[2018-03-31] MEDS: QUEtiapine FUMARATE 100 MG TABLET (FP) PO SCH (21:16)
[2018-03-31] MEDS ORDERED: PT OWN MED DRAWER 7, Y5N ONE (21:59)
[2018-04-01] MEDS: MECLIZINE HCL 12.5 MG TABLET PO SCH ×4 (00:18→18:07)
[2018-04-01] MEDS: INSULIN SLIDING SCALE (NOVOLOG) 1 VIAL SQ SCH ×4 (06:57→21:40)
[2018-04-01] MEDS: INSULIN (NOVOLOG) ASPART 100 UNITS/ML 10ML VIAL SQ SCH ×3 (06:57→16:53)
[2018-04-01] MEDS: RAMIPRIL 5 MG CAPSULE (FP) PO SCH (09:59)
[2018-04-01] MEDS: GABAPENTIN 300 MG CAPSULE (FP) PO SCH ×2 (09:59→21:36)
[2018-04-01] MEDS: ATORVASTATIN CA 10 MG TABLET (FP) PO SCH (09:59)
[2018-04-01] MEDS: RANITIDINE HCL 150 MG TABLET (FP) PO SCH ×2 (09:59→21:36)
[2018-04-01] MEDS: CITALOPRAM HYDROBROMIDE 20 MG TABLET (FP) PO SCH (09:59)
[2018-04-01] MEDS: PRENATAL VITAMINS W/ FOLIC ACID TABLET (FP) PO SCH (10:00)
[2018-04-01] MEDS: ASPIRIN 81 MG CHEWABLE TABLETS PO SCH (10:00)
[2018-04-01] MEDS ORDERED: INSULIN (NOVOLOG) ASPART 100 UNITS/ML 10ML VIAL ONE ×2 (11:28→16:42)
[2018-04-01] MEDS: QUEtiapine FUMARATE 100 MG TABLET (FP) PO SCH (21:36)
[2018-04-01] MEDS: traZODone HCL 50 MG TABLET (FP) PO SCH (21:36)
[2018-04-01] MEDS: THIAMINE HCL 100 MG TABLET (FP) PO SCH (21:36)
[2018-04-01] MEDS: INSULIN (LEVEMIR) 100 UNITS/ML UNITS SQ SCH (21:39)
[2018-04-01] MEDS ORDERED: PT OWN MED DRAWER 7, Y5N ONE (22:58)
[2018-04-02] MEDS: MECLIZINE HCL 12.5 MG TABLET PO SCH ×4 (00:15→16:59)
[2018-04-02] MEDS: INSULIN (NOVOLOG) ASPART 100 UNITS/ML 10ML VIAL SQ SCH ×3 (06:45→16:58)
[2018-04-02] MEDS: INSULIN SLIDING SCALE (NOVOLOG) 1 VIAL SQ SCH ×4 (06:46→21:50)
[2018-04-02] MEDS: ATORVASTATIN CA 10 MG TABLET (FP) PO SCH (10:41)
[2018-04-02] MEDS: RAMIPRIL 5 MG CAPSULE (FP) PO SCH (10:41)
[2018-04-02] MEDS: CITALOPRAM HYDROBROMIDE 20 MG TABLET (FP) PO SCH (10:41)
[2018-04-02] MEDS: RANITIDINE HCL 150 MG TABLET (FP) PO SCH ×2 (10:42→21:47)
[2018-04-02] MEDS: GABAPENTIN 300 MG CAPSULE (FP) PO SCH ×2 (10:42→21:47)
[2018-04-02] MEDS: PRENATAL VITAMINS W/ FOLIC ACID TABLET (FP) PO SCH (10:42)
[2018-04-02] MEDS: ASPIRIN 81 MG CHEWABLE TABLETS PO SCH (10:45)
[2018-04-02] MEDS ORDERED: INSULIN (NOVOLOG) ASPART 100 UNITS/ML 10ML VIAL ONE ×2 (11:43→16:48)
--- NOTE | 2018-04-02 12:13 | PN ---
[facility] Progress Note Note: received nurse called that the patient has HI bgm encourage provide 7 units of insulin as scheduled routinely five insulin as per sliding scale indicated clean catch urine contaminated please collect the urine for clean catch
[2018-04-02] MEDS: traZODone HCL 50 MG TABLET (FP) PO SCH (21:47)
[2018-04-02] MEDS: THIAMINE HCL 100 MG TABLET (FP) PO SCH (21:47)
[2018-04-02] MEDS: QUEtiapine FUMARATE 100 MG TABLET (FP) PO SCH (21:47)
[2018-04-02] MEDS: INSULIN (LEVEMIR) 100 UNITS/ML UNITS SQ SCH (21:48)
[2018-04-02] MEDS ORDERED: INSULIN (LEVEMIR) 100 UNITS/ML UNITS SQ ONE (23:55)
[2018-04-03] MEDS: MECLIZINE HCL 12.5 MG TABLET PO SCH ×5 (00:13→23:58)
[2018-04-03] MEDS: INSULIN SLIDING SCALE (NOVOLOG) 1 VIAL SQ SCH ×4 (06:20→21:08)
[2018-04-03] MEDS: INSULIN (NOVOLOG) ASPART 100 UNITS/ML 10ML VIAL SQ SCH ×3 (06:20→17:08)
[2018-04-03] MEDS: RANITIDINE HCL 150 MG TABLET (FP) PO SCH ×2 (10:10→21:09)
[2018-04-03] MEDS: GABAPENTIN 300 MG CAPSULE (FP) PO SCH ×2 (10:10→21:09)
[2018-04-03] MEDS: ASPIRIN 81 MG CHEWABLE TABLETS PO SCH (10:10)
[2018-04-03] MEDS: ATORVASTATIN CA 10 MG TABLET (FP) PO SCH (10:10)
[2018-04-03] MEDS: PRENATAL VITAMINS W/ FOLIC ACID TABLET (FP) PO SCH (10:10)
[2018-04-03] MEDS: CITALOPRAM HYDROBROMIDE 20 MG TABLET (FP) PO SCH (10:10)
[2018-04-03] MEDS: RAMIPRIL 5 MG CAPSULE (FP) PO SCH (10:10)
[2018-04-03] MEDS ORDERED: INSULIN (NOVOLOG) ASPART 100 UNITS/ML 10ML VIAL ONE ×2 (11:56→16:52)
--- NOTE | 2018-04-03 11:58 | PN ---
S Progress Note Note: received nurse call bgm elevation with finger stic of 65 today am before breakfast give 10 units of insulin coverage with routine insulin adjust insulin sliding scale
[2018-04-03] MEDS: INSULIN (LEVEMIR) 100 UNITS/ML UNITS SQ SCH (21:07)
[2018-04-03] MEDS: QUEtiapine FUMARATE 100 MG TABLET (FP) PO SCH (21:09)
[2018-04-03] MEDS: THIAMINE HCL 100 MG TABLET (FP) PO SCH (21:09)
[2018-04-03] MEDS: traZODone HCL 50 MG TABLET (FP) PO SCH (21:09)
[2018-04-04] MEDS: MECLIZINE HCL 12.5 MG TABLET PO SCH ×3 (06:35→19:16)
[2018-04-04] MEDS: INSULIN SLIDING SCALE (NOVOLOG) 1 VIAL SQ SCH ×4 (07:14→21:39)
[2018-04-04] MEDS: INSULIN (NOVOLOG) ASPART 100 UNITS/ML 10ML VIAL SQ SCH ×3 (07:47→16:48)
[2018-04-04] MEDS: ATORVASTATIN CA 10 MG TABLET (FP) PO SCH (09:50)
[2018-04-04] MEDS: GABAPENTIN 300 MG CAPSULE (FP) PO SCH ×2 (09:50→21:37)
[2018-04-04] MEDS: RAMIPRIL 5 MG CAPSULE (FP) PO SCH (09:50)
[2018-04-04] MEDS: PRENATAL VITAMINS W/ FOLIC ACID TABLET (FP) PO SCH (09:50)
[2018-04-04] MEDS: CITALOPRAM HYDROBROMIDE 20 MG TABLET (FP) PO SCH (09:50)
[2018-04-04] MEDS: ASPIRIN 81 MG CHEWABLE TABLETS PO SCH (09:50)
[2018-04-04] MEDS: RANITIDINE HCL 150 MG TABLET (FP) PO SCH ×2 (09:51→21:37)
[2018-04-04] MEDS ORDERED: INSULIN (NOVOLOG) ASPART 100 UNITS/ML 10ML VIAL ONE ×2 (12:02→16:39)
[2018-04-04] MEDS: QUEtiapine FUMARATE 100 MG TABLET (FP) PO SCH (21:37)
[2018-04-04] MEDS: THIAMINE HCL 100 MG TABLET (FP) PO SCH (21:37)
[2018-04-04] MEDS: traZODone HCL 50 MG TABLET (FP) PO SCH (21:37)
[2018-04-04] MEDS: INSULIN (LEVEMIR) 100 UNITS/ML UNITS SQ SCH (21:38)
[2018-04-05] MEDS: MECLIZINE HCL 12.5 MG TABLET PO SCH ×4 (01:17→19:13)
[2018-04-05] MEDS ORDERED: INSULIN (NOVOLOG) ASPART 100 UNITS/ML 10ML VIAL ONE (06:42)
[2018-04-05] MEDS: INSULIN (NOVOLOG) ASPART 100 UNITS/ML 10ML VIAL SQ SCH ×3 (06:45→16:40)
[2018-04-05] MEDS: INSULIN SLIDING SCALE (NOVOLOG) 1 VIAL SQ SCH ×5 (06:45→21:39)
[2018-04-05] MEDS: RANITIDINE HCL 150 MG TABLET (FP) PO SCH ×2 (09:40→21:40)
[2018-04-05] MEDS: GABAPENTIN 300 MG CAPSULE (FP) PO SCH ×2 (09:40→21:40)
[2018-04-05] MEDS: CITALOPRAM HYDROBROMIDE 20 MG TABLET (FP) PO SCH (09:40)
[2018-04-05] MEDS: ATORVASTATIN CA 10 MG TABLET (FP) PO SCH (09:40)
[2018-04-05] MEDS: PRENATAL VITAMINS W/ FOLIC ACID TABLET (FP) PO SCH (09:40)
[2018-04-05] MEDS: RAMIPRIL 5 MG CAPSULE (FP) PO SCH (09:40)
[2018-04-05] MEDS: ASPIRIN 81 MG CHEWABLE TABLETS PO SCH (09:40)
[2018-04-05] MEDS: INSULIN (LEVEMIR) 100 UNITS/ML UNITS SQ SCH (21:38)
[2018-04-05] MEDS: THIAMINE HCL 100 MG TABLET (FP) PO SCH (21:40)
[2018-04-05] MEDS: QUEtiapine FUMARATE 100 MG TABLET (FP) PO SCH (21:40)
[2018-04-05] MEDS: traZODone HCL 50 MG TABLET (FP) PO SCH (21:40)
[2018-04-05] MEDS ORDERED: PT OWN MED DRAWER 7, Y5N ONE (22:15)
[2018-04-06] MEDS: MECLIZINE HCL 12.5 MG TABLET PO SCH ×4 (06:23→17:00)
[2018-04-06] MEDS: INSULIN SLIDING SCALE (NOVOLOG) 1 VIAL SQ SCH ×4 (06:24→21:36)
[2018-04-06] MEDS: INSULIN (NOVOLOG) ASPART 100 UNITS/ML 10ML VIAL SQ SCH ×3 (08:08→16:58)
[2018-04-06] MEDS: CITALOPRAM HYDROBROMIDE 20 MG TABLET (FP) PO SCH (09:54)
[2018-04-06] MEDS: PRENATAL VITAMINS W/ FOLIC ACID TABLET (FP) PO SCH (09:54)
[2018-04-06] MEDS: ATORVASTATIN CA 10 MG TABLET (FP) PO SCH (09:54)
[2018-04-06] MEDS: RAMIPRIL 5 MG CAPSULE (FP) PO SCH (09:54)
[2018-04-06] MEDS: RANITIDINE HCL 150 MG TABLET (FP) PO SCH ×2 (09:54→21:33)
[2018-04-06] MEDS: GABAPENTIN 300 MG CAPSULE (FP) PO SCH ×2 (09:54→21:33)
[2018-04-06] MEDS: ASPIRIN 81 MG CHEWABLE TABLETS PO SCH (09:54)
[2018-04-06] MEDS ORDERED: INSULIN (NOVOLOG) ASPART 100 UNITS/ML 10ML VIAL ONE ×2 (11:48→22:36)
[2018-04-06] MEDS: traZODone HCL 50 MG TABLET (FP) PO SCH (21:33)
[2018-04-06] MEDS: QUEtiapine FUMARATE 100 MG TABLET (FP) PO SCH (21:33)
[2018-04-06] MEDS: THIAMINE HCL 100 MG TABLET (FP) PO SCH (21:33)
[2018-04-06] MEDS: INSULIN (LEVEMIR) 100 UNITS/ML UNITS SQ SCH (21:34)
[2018-04-07] MEDS: MECLIZINE HCL 12.5 MG TABLET PO SCH ×4 (00:51→18:30)
[2018-04-07] MEDS: INSULIN (NOVOLOG) ASPART 100 UNITS/ML 10ML VIAL SQ SCH ×3 (07:00→16:54)
[2018-04-07] MEDS: INSULIN SLIDING SCALE (NOVOLOG) 1 VIAL SQ SCH ×4 (07:02→21:42)
[2018-04-07] MEDS: PRENATAL VITAMINS W/ FOLIC ACID TABLET (FP) PO SCH (09:55)
[2018-04-07] MEDS: ATORVASTATIN CA 10 MG TABLET (FP) PO SCH (09:55)
[2018-04-07] MEDS: ASPIRIN 81 MG CHEWABLE TABLETS PO SCH (09:55)
[2018-04-07] MEDS: RAMIPRIL 5 MG CAPSULE (FP) PO SCH (09:55)
[2018-04-07] MEDS: RANITIDINE HCL 150 MG TABLET (FP) PO SCH ×2 (09:55→21:39)
[2018-04-07] MEDS: CITALOPRAM HYDROBROMIDE 20 MG TABLET (FP) PO SCH (09:56)
[2018-04-07] MEDS: GABAPENTIN 300 MG CAPSULE (FP) PO SCH ×2 (09:56→21:39)
[2018-04-07] MEDS ORDERED: INSULIN (NOVOLOG) ASPART 100 UNITS/ML 10ML VIAL SQ ONE (11:44)
[2018-04-07] MEDS ORDERED: INSULIN (NOVOLOG) ASPART 100 UNITS/ML 10ML VIAL ONE ×2 (11:45→23:05)
[2018-04-07] MEDS: QUEtiapine FUMARATE 100 MG TABLET (FP) PO SCH (21:39)
[2018-04-07] MEDS: INSULIN (LEVEMIR) 100 UNITS/ML UNITS SQ SCH (21:39)
[2018-04-07] MEDS: traZODone HCL 50 MG TABLET (FP) PO SCH (21:39)
[2018-04-07] MEDS: THIAMINE HCL 100 MG TABLET (FP) PO SCH (21:39)
[2018-04-08] MEDS: MECLIZINE HCL 12.5 MG TABLET PO SCH ×2 (00:36→06:33)
[2018-04-08 06:54] VITALS: BP 118/81; PULSE 77; TEMP 98.4
[2018-04-08] MEDS: INSULIN SLIDING SCALE (NOVOLOG) 1 VIAL SQ SCH (07:20)
[2018-04-08] MEDS: INSULIN (NOVOLOG) ASPART 100 UNITS/ML 10ML VIAL SQ SCH (07:48)
[2018-04-08] MEDS: CITALOPRAM HYDROBROMIDE 20 MG TABLET (FP) PO SCH (09:47)
[2018-04-08] MEDS: ASPIRIN 81 MG CHEWABLE TABLETS PO SCH (09:47)
[2018-04-08] MEDS: RAMIPRIL 5 MG CAPSULE (FP) PO SCH (09:47)
[2018-04-08] MEDS: PRENATAL VITAMINS W/ FOLIC ACID TABLET (FP) PO SCH (09:48)
[2018-04-08] MEDS: ATORVASTATIN CA 10 MG TABLET (FP) PO SCH (09:48)
[2018-04-08] MEDS: RANITIDINE HCL 150 MG TABLET (FP) PO SCH (09:48)
[2018-04-08] MEDS: GABAPENTIN 300 MG CAPSULE (FP) PO SCH (09:48)
--- NOTE | 2018-04-08 10:08 | PN ---
Psychiatric Progress Note Vital Signs: Vital Signs Period Temp Pulse Resp BP Sys/Malik Pulse Ox Last 24 Hr 98.4 F 77 18-18 118/81 Date of Session: 04/08/18 Chief Complaint:: Discharge visit HPI: Cocaine,Alcohol dependence comorbid with Substance induced mood disorder. ROS: DM,Neuropathy. Current Medications: Active Medications Generic Name Dose Route Start Last Admin Trade Name Freq PRN Reason Stop Dose Admin Acetaminophen 650 mg 03/26/18 15:34 Tylenol - PO Q4H PRN FEVER Al Hydroxide/Mg Hydroxide 30 ml 03/26/18 15:34 Mylanta Oral Suspension - PO Q6H PRN DYSPEPSIA Aspirin 81 mg 03/27/18 10:00 04/08/18 09:47 Asa - PO 81 mg DAILY LICO Administration Atorvastatin Calcium 10 mg 03/27/18 10:00 04/08/18 09:48 Lipitor - PO 10 mg DAILY LICO Administration Citalopram Hydrobromide 20 mg 03/27/18 10:00 04/08/18 09:47 Celexa - PO 20 mg DAILY LICO Administration Eucalyptus/Menthol/Phenol/Sorbitol 1 each 03/26/18 15:34 Cepastat Lozenge - MM Q4H PRN SORE THROAT Gabapentin 300 mg 03/26/18 22:00 04/08/18 09:48 Neurontin - PO 300 mg BID LICO Administration Guaifenesin 10 ml 03/26/18 15:34 Robitussin Dm - PO Q6H PRN COUGH Insulin Aspart 7 units 03/26/18 16:30 04/08/18 07:48 Novolog Vial SQ 7 units TIDAC LICO Administration Protocol Insulin Aspart 1 vial 04/03/18 11:57 04/08/18 07:20 Novolog Vial Sliding Scale - SQ Not Given A[facility]S [facility] Protocol Insulin Detemir 12 units 03/26/18 22:00 04/07/18 21:39 Levemir Vial SQ 12 units HS LICO Administration Loperamide HCl 4 mg 03/26/18 15:34 Imodium - PO Q6H PRN DIARRHEA Magnesium Citrate 300 ml 03/26/18 15:34 Citroma - PO Q48H PRN CONSTIPATION Magnesium Hydroxide 30 ml 03/26/18 15:34 Milk Of Magnesia - PO DAILY PRN CONSTIPATION Meclizine HCl 12.5 mg 03/28/18 18:00 04/08/18 06:33 Antivert - PO Not Given Q6HPO LICO Melatonin 5 mg 03/26/18 22:00 Melatonin PO HS PRN INSOMNIA Nicotine 14 mg 03/26/18 15:34 Nicoderm Patch - TD DAILY PRN WITHDRAWAL(CONT SUBST) Nicotine Polacrilex 2 mg 03/26/18 15:34 Nicorette Gum - BUC Q2H PRN NICOTINE REPLACEMENT RX Multivit/Folic Acid/Iron 1 tab 03/27/18 10:00 04/08/18 09:48 Vitamins (Sjr) - PO 1 tab DAILY LICO Administration Pseudoephedrine/Triprolidine 1 combo 03/26/18 15:34 Actifed - PO TID PRN NASAL CONGESTION Quetiapine Fumarate 100 mg 03/26/18 22:00 04/07/18 21:39 Seroquel - PO 100 mg HS LICO Administration Ramipril 5 mg 03/27/18 10:00 04/08/18 09:47 Altace - PO 5 mg DAILY LICO Administration Ranitidine HCl 150 mg 03/26/18 22:00 04/08/18 09:48 Zantac - PO 150 mg BID LICO Administration Thiamine HCl 100 mg 03/26/18 22:00 04/07/18 21:39 Vitamin B1 - PO 100 mg HS LICO Administration Trazodone HCl 50 mg 03/26/18 22:00 04/07/18 21:39 Desyrel - PO 50 mg HS LICO Administration Current Side Effect: No Lab tests ordered: No Lab tests reviewed: Yes Provider note:: Efrem completed this poorgram today.SDhr has met her treatment goals and will continue to address her issues on outpatient basis.Patient reorts finding that current medications:Trazodone 50 mg po hs, Seroquel 100 mg po hs,Celexa 20 mg po daily and Neurontin 300 mg po bid help to cope with mood insatbility,depression,anxiety.scripts for 30 days provided.patient will be under my care at [facility]. Supportive therapy provided focusing on relapse prevention. patient is stable for discharge today. Total face to face time:: 30 Mental Status Exam - Mental Status Exam Alert and Oriented to: Time, Place, Person Cognitive Function: Grossly Intact Patient Appearance: Well Groomed Mood: Euthymic Affect: Appropriate, Normal Range Patient Behavior: Cooperative Speech Pattern: Clear Voice Loudness: Normal Thought Process: Goal Oriented Thought Disorder: Not Present Hallucinations: Denies Suicidal Ideation: Denies Homicidal Ideation: Denies Insight/Judgement: Fair Sleep: Fair Appetite: Good Muscle strength/Tone: Normal Gait/Station: Normal Psychiatric Treatment Plan - Problem List (1) Cocaine dependence Qualifiers: Substance use status: uncomplicated Qualified Code(s): F14.20 - Cocaine dependence, uncomplicated (5) Nicotine dependence Qualifiers: Nicotine product type: cigarettes Substance use status: uncomplicated Qualified Code(s): F17.210 - Nicotine dependence, cigarettes, uncomplicated
== END 2018-04-08 10:15 | disposition home or self-care (01) | DRG 772 ==
LOC: YASAS 15:15 → Y3E 15:16
PROVIDERS: ADMIT Psychiatry & Neurology Psychiatry; ATTEND Psychiatry & Neurology Psychiatry
PROC: HZ42ZZZ Group Counseling for Substance Abuse Treatment, Cognitive-Behavioral (ICD-10-PCS; principal; 2018-03-26)
DX: F10.20 Alcohol dependence, uncomplicated (principal); F14.20 Cocaine dependence, uncomplicated; F17.210 Nicotine dependence, cigarettes, uncomplicated; F19.24 Other psychoactive substance dependence with psychoactive substance-induced mood disorder; F33.9 Major depressive disorder, recurrent, unspecified; E10.9 Type 1 diabetes mellitus without complications; Z79.4 Long term (current) use of insulin; G62.9 Polyneuropathy, unspecified; R42 Dizziness and giddiness; R35.0 Frequency of micturition; Z59.0 Homelessness
CPT/HCPCS: 81003; 82962; 87086

== ENCOUNTER 2018-05-07 13:10 | Inpatient (IN) | payer OTHER ==
[2018-05-07 14:41] VITALS: BMI 24.9
--- NOTE | 2018-05-07 15:59 | HP ---
CIWA Score - CIWA Score Nausea/Vomitin-No Nausea/No Vomiting Muscle Tremors: 2 Anxiety: 3 Agitation: 2 Paroxysmal Sweats: 3 Orientation: 0-Oriented Tacttile Disturbances: 2-Mild Itch/Numbness/Burn (both feet) Auditory Disturbances: 0-None Visual Disturbances: 1-Very Mild Sensitivity Headache: 0-None Present CIWA-Ar Total Score: 13 Admission ROS S - HPI Chief Complaint: " I relapse" alcohol withdrawal sx Allergies/Adverse Reactions: Allergies Allergy/AdvReac Type Severity Reaction Status Date / Time No Known Allergies Allergy Verified 03/22/18 14:42 History of Present Illness: 48 yo female with hx of nicotine, alchol, marijua and cocaine dependence is here seekng detox. Last detox and rehab [facility] 03/22/18 -04/08/18. Reports relapse. Hx alcohol use since age 16 and cocaine use since age 18 now uses crack. Denies hx of blackouts or seizures. Has had a 2 year period of sobriety when attended groups and meetings (in early 1999). Hx depression and insomnia and being seen by mental health. Denies suicidal / homicidal ideaton. Denies any legal troubles at this time. Hx: HTN, HDL , IDDM, neuropathy,and GERD. Compliant w/ all meds when sober. Exam Limitations: No Limitations - Ebola screening Have you traveled outside of the country in the last 21 days: No Have you had contact with anyone from an Ebola affected area: No Have you been sick,other than usual withdrawal symptoms: No - Review of Systems Constitutional: Chills, Diaphoresis, Weakness EENT: reports: Dental Problems (missing teeth) Respiratory: reports: No Symptoms reported Cardiac: reports: No Symptoms Reported GI: reports: Poor Fluid Intake, Indigestion : reports: No Symptoms Reported Musculoskeletal: reports: No Symptoms Reported Integumentary: reports: Dryness Neuro: reports: No Symptoms reported Endocrine: reports: Increased Thirst Hematology: reports: No Symptoms Reported Psychiatric: reports: Orientated x3, Depressed Other Systems: Reviewed and Negative Patient History - Patient Medical History Hx Anemia: No Hx Asthma: No Hx Chronic Obstructive Pulmonary Disease (COPD): No Hx Cancer: No Hx Cardiac Disorders: No Hx Congestive Heart Failure: No Hx Hypertension: Yes Hx Hypercholesterolemia: Yes (CREST[place]) Hx Pacemaker: No HX Cerebrovascular Accident: No Hx Seizures: No Hx Dementia: No Hx Diabetes: Yes Hx Gastrointestinal Disorders: Yes (GERD) Hx Liver Disease: No Hx Genitourinary Disorders: No Hx Sexually Transmitted Disorders: No Hx Renal Disease (ESRD): No Hx Thyroid Disease: No Hx Human Immunodeficiency Virus (HIV): No (LAST MAR 2018 NEGATIVE) Hx Hepatitis C: No Hx Depression: Yes Hx Suicide Attempt: Yes (with pills 20yrs ago) Hx Bipolar Disorder: No Hx Schizophrenia: No - Patient Surgical History Past Surgical History: No Hx Neurologic Surgery: No Hx Cataract Extraction: No Hx Cardiac Surgery: No Hx Lung Surgery: No Hx Breast Surgery: No Hx Breast Biopsy: No Hx Abdominal Surgery: No Hx Appendectomy: No Hx Cholecystectomy: No Hx Genitourinary Surgery: No Hx Section: No Hx Orthopedic Surgery: No Anesthesia Reaction: No - PPD History Previous Implant?: Yes Documented Results: Negative w/proof Date: 03/24/18 Results: 0mm PPD to be Administered?: No - Reproductive History Patient is a Female of Child Bearing Age (11 -55 yrs old): Yes Last Menstrual Period: 05/05/18 Patient : No - Smoking Cessation Smoking history: Current every day smoker Have you smoked in the past 12 months: Yes Aproximately how many cigarettes per day: 10 Cigars Per Day: 0 Hx Chewing Tobacco Use: No Initiated information on smoking cessation: Yes 'Breaking Loose' booklet given: 05/07/18 - Substance & Tx. History Hx Alcohol Use: Yes Hx Substance Use: Yes Substance Use Type: Alcohol, Cocaine Hx Substance Use Treatment: Yes (Last detox and rehab [facility] 03/22/18 -04/08/18.) - Substances Abused Alcohol Route: Oral Frequency: Daily Amount used: 2 pints liquor + 2 x 40 oz beer Age of first use: 18 Date of Last Use: 05/07/18 Cocaine Route: Smoking Frequency: Daily Amount used: $100 Age of first use: 18 Date of Last Use: 05/07/18 Marijuana/Hashish Route: Smoking Frequency: 1-2 times per week Amount used: $10 Age of first use: 18 Date of Last Use: 05/07/18 Family Disease History - Family Disease History Family Disease History: Diabetes: Brother Admission Physical Exam [facility] - Vital Signs Vital Signs: Vital Signs - 24 hr 05/07/18 14:39 Temperature 98.5 F Pulse Rate 83 Respiratory 20 Rate Blood Pressure 134/74 - Physical General Appearance: Yes: Disheveled, Mild Distress, Thin, Sweating, Anxious HEENTM: Yes: EOMI, Hearing grossly Normal, Normal ENT Inspection, Normocephalic , Normal Voice, TIERRA, Pharynx Normal, Tm's normal Respiratory: Yes: Chest Non-Tender, Lungs Clear, Normal Breath Sounds, No Respiratory Distress, No Accessory Muscle Use Neck: Yes: Within Normal Limits Breast: Yes: Breast Exam Deferred Cardiology: Yes: Regular Rhythm, Regular Rate Abdominal: Yes: Normal Bowel Sounds, Non Tender, Flat Genitourinary: Yes: Within Normal Limits Back: Yes: Normal Inspection Musculoskeletal: Yes: full range of Motion Extremities: Yes: Normal Capillary Refill, Normal Inspection, Normal Range of Motion Neurological: Yes: lone lead lineman II-XII NML intact, Fully Oriented, Alert, Motor Strength 5/5, Depressed Affect Integumentary: Yes: Normal Color, Warm, Diaphoresis Lymphatic: Yes: Within Normal Limits - Diagnostic (1) Alcohol dependence with withdrawal Current Visit: Yes Status: Acute Qualifiers: Complication of substance-induced condition: uncomplicated Qualified Code(s ): F10.230 - Alcohol dependence with withdrawal, uncomplicated (2) Cocaine dependence Current Visit: Yes Status: Chronic Qualifiers: Substance use status: uncomplicated Qualified Code(s): F14.20 - Cocaine dependence, uncomplicated (3) DM Diabetes mellitus type 2 Current Visit: Yes Status: Chronic Comment: BGM 445 at 1:33pm today (4) GERD (gastroesophageal reflux disease) Current Visit: Yes Status: Chronic Qualifiers: Esophagitis presence: esophagitis presence not specified Qualified Code(s) : K21.9 - Gastro-esophageal reflux disease without esophagitis (5) Hypercholesterolemia Current Visit: Yes Status: Chronic (6) Hypertension Current Visit: Yes Status: Chronic Qualifiers: Hypertension type: essential hypertension Qualified Code(s): I10 - Essential (primary) hypertension (7) Neuropathy Current Visit: Yes Status: Chronic (8) Nicotine dependence Current Visit: No Status: Chronic Qualifiers: Nicotine product type: cigarettes Substance use status: uncomplicated Qualified Code(s): F17.210 - Nicotine dependence, cigarettes, uncomplicated Cleared for Admission [facility] - Detox or Rehab [facility] Level of Care: Medically Managed Detox Regimen/Protocol: Librium S Breath Alcohol Content Breath Alcohol Content: 0.046 Urine Pregancy Test - Result Urine Test Results: Negative- NO Line Present Urine Drug Screen - Results Drug Screen Negative: No Urine Drug Screen Results: THC-Marijuana, IVAN-Cocaine
[2018-05-07] MEDS ORDERED: MAGNESIUM CITRATE 300 ML BOTTLE PO PRN (16:11)
[2018-05-07] MEDS ORDERED: ACETAMINOPHEN 325 MG TABLET (FP) PO PRN (16:11)
[2018-05-07] MEDS ORDERED: guaiFENesin/D-METHORPHAN HB 10 ML UNIT-DOSE CUPS PO PRN (16:11)
[2018-05-07] MEDS ORDERED: MENTHOL/PHENOL 1 EACH UD MM PRN (16:11)
[2018-05-07] MEDS ORDERED: P-EPHED 60MG/TRIPROLIDI 2.5MG TABLET PO PRN (16:11)
[2018-05-07] MEDS ORDERED: MAGNESIUM HYDROX 2400MG/30ML ORAL SUSPENSION 30 ML CUP PO PRN (16:11)
[2018-05-07] MEDS ORDERED: chlordiazePOXIDE HCL 25 MG CAPSULE PO PRN (16:11)
[2018-05-07] MEDS ORDERED: IBUPROFEN 400 MG TABLET (FP) PO PRN (16:11)
[2018-05-07] MEDS ORDERED: LOPERAMIDE HCL 2 MG CAPSULE PO PRN (16:11)
[2018-05-07] MEDS ORDERED: MAG HYDROX/AL HYDROX/SIMETH 30 ML UNIT-DOSE CUP PO PRN (16:11)
[2018-05-07] MEDS ORDERED: hydrOXYzine PAMOATE 25 MG CAPSULE (FP) PO PRN (16:11)
[2018-05-07] MEDS ORDERED: chlordiazePOXIDE HCL 25 MG CAPSULE PO ONE (17:15)
[2018-05-07] MEDS: INSULIN (NOVOLOG) ASPART 100 UNITS/ML 10ML VIAL SQ SCH (18:30)
[2018-05-07] MEDS ORDERED: INSULIN (LEVEMIR) 100 UNITS/ML UNITS SQ SCH (22:00)
[2018-05-07] MEDS ORDERED: MELATONIN 5 MG TABLETS PO PRN (22:00)
[2018-05-07] MEDS: THIAMINE HCL 100 MG TABLET (FP) PO SCH (22:28)
[2018-05-07] MEDS: GABAPENTIN 300 MG CAPSULE (FP) PO SCH (22:29)
[2018-05-07] MEDS: INSULIN (LEVEMIR) 100 UNITS/ML UNITS SQ SCH (22:29)
[2018-05-07] MEDS: RANITIDINE HCL 150 MG TABLET (FP) PO SCH (22:29)
[2018-05-07] MEDS: chlordiazePOXIDE HCL 25 MG CAPSULE PO SCH (22:29)
[2018-05-08] MEDS: chlordiazePOXIDE HCL 25 MG CAPSULE PO SCH ×4 (06:11→23:54)
[2018-05-08] MEDS: GABAPENTIN 300 MG CAPSULE (FP) PO SCH ×3 (06:12→23:56)
[2018-05-08] MEDS: INSULIN (NOVOLOG) ASPART 100 UNITS/ML 10ML VIAL SQ SCH ×3 (07:16→17:23)
--- NOTE | 2018-05-08 07:41 | CONSULT ---
[facility] Psychiatric Consult - Data Date of interview: 05/08/18 Admission source: [facility] Identifying data: 48 yo female with hx of nicotine, alchol, marijua and cocaine dependence is here seekng detox. Last detox and rehab [facility] 03/22/18 -04/08/18. Reports relapse. Hx alcohol use since age 16 and cocaine use since age 18 now uses crack. Denies hx of blackouts or seizures. Has had a 2 year period of sobriety when attended groups and meetings (in early 1999). Hx depression and insomnia and being seen by mental health. Denies suicidal / homicidal ideaton. Denies any legal troubles at this time. Hx: HTN, HDL , IDDM, neuropathy,and GERD. Compliant w/ all meds when sober. Substance Abuse History: - Smoking Cessation. Smoking history: Current every day smoker. Have you smoked in the past 12 months: Yes. Aproximately how many cigarettes per day: 10. Cigars Per Day: 0. Hx Chewing Tobacco Use: No. Initiated information on smoking cessation: Yes. 'Breaking Loose' booklet given : 05/07/18. - Substance & Tx. History. Hx Alcohol Use: Yes. Hx Substance Use : Yes. Substance Use Type: Alcohol, Cocaine. Hx Substance Use Treatment: Yes ( Last detox and rehab [facility] 03/22/18 -04/08/18.). - Substances Abused. Alcohol. Route: Oral. Frequency: Daily. Amount used: 2 pints liquor + 2 x 40 oz beer. Age of first use: 18. Date of Last Use: 05/07/18. Cocaine. Route : Smoking. Frequency: Daily. Amount used: $100. Age of first use: 18. Date of Last Use: 05/07/18. Marijuana/Hashish. Route: Smoking. Frequency: 1-2 times per week. Amount used: $10. Age of first use: 18. Date of Last Use: Medical History: Weight loss history, Vertigo, HTN, Neuropathy, GERD, DM-II-I Psychiatric History: Patient reports history of depression and anxiety, reports mopst recent psychiatric hospitalization at [facility] for 2 weeks prior to this admission for safety. Patient reports history of suiucidal isdeation and attempts by OD on about 20 years ago, denies suicidal history since then. Patient reports taking prior to admission: Celexa 40mg poqd. Seroquel 100mg po qhs. Trazodone 150mg po qhs Physical/Sexual Abuse/Trauma History: Unclear Additional Comment: Celexa 40mg poqd. Seroquel 100mg po qhs. Trazodone 150mg po qhs Mental Status Exam - Mental Status Exam Alert and Oriented to: Person Cognitive Function: Fair Patient Appearance: Unkempt Mood: Sad Affect: Flat Patient Behavior: Sedated Speech Pattern: Delayed Voice Loudness: Mildly Soft/Quiet Thought Process: Circumstantial Thought Disorder: Being Controlled Hallucinations: Denies Suicidal Ideation: Denies Homicidal Ideation: Denies Insight/Judgement: Fair Sleep: Difficulty falling asleep Appetite: Weight loss Muscle strength/Tone: Normal Gait/Station: Shuffling Additional Comments: Celexa 40mg poqd. Seroquel 100mg po qhs. Trazodone 150mg po qhs Psychiatric Findings - Problem List ([place] 1, 2,3) (1) Alcohol dependence with withdrawal Current Visit: Yes Status: Acute Qualifiers: Complication of substance-induced condition: uncomplicated Qualified Code(s ): F10.230 - Alcohol dependence with withdrawal, uncomplicated (2) Cocaine dependence Current Visit: Yes Status: Chronic Qualifiers: Substance use status: uncomplicated Qualified Code(s): F14.20 - Cocaine dependence, uncomplicated (3) Nicotine dependence Current Visit: Yes Status: Chronic Qualifiers: Nicotine product type: cigarettes Substance use status: uncomplicated Qualified Code(s): F17.210 - Nicotine dependence, cigarettes, uncomplicated (4) Alcohol dependence with withdrawal delirium Current Visit: No Status: Acute (5) Crack cocaine use Current Visit: No Status: Chronic (6) Substance induced mood disorder Current Visit: No Status: Chronic (7) Substance or medication-induced sleep disorder, mixed type Current Visit: No Status: Chronic (8) Substance-induced sleep disorder Current Visit: No Status: Chronic (9) GERD (gastroesophageal reflux disease) Current Visit: Yes Status: Chronic Qualifiers: Esophagitis presence: esophagitis presence not specified Qualified Code(s) : K21.9 - Gastro-esophageal reflux disease without esophagitis (10) Hypercholesterolemia Current Visit: Yes Status: Chronic (11) Hypertension Current Visit: Yes Status: Chronic Qualifiers: Hypertension type: essential hypertension Qualified Code(s): I10 - Essential (primary) hypertension (12) Neuropathy Current Visit: Yes Status: Chronic (13) Hyperglycemia Current Visit: No Status: Acute (14) Urinary frequency Current Visit: No Status: Acute (15) Vertigo Current Visit: No Status: Acute (16) Type 1 diabetes Current Visit: No Status: Chronic (17) Yeast infection Current Visit: No Status: Chronic - Initial Treatment Plan Initial Treatment Plan: Celexa 40mg poqd. Seroquel 100mg po qhs. Trazodone 150mg po qhs
[2018-05-08] MEDS ORDERED: ATORVASTATIN CA 10 MG TABLET (FP) PO SCH (10:00)
[2018-05-08 10:47] LABS: HEMATOCRIT 38.7 % (32.4-45.2); HEMOGLOBIN 12.3 GM/dL (10.7-15.3); MCH 28.5 pg (25.7-33.7); MCHC 31.7 g/dl (32.0-36.0); MEAN CELL VOLUME 89.8 fl (80-96); MEAN PLT VOLUME 9.1 fl (7.5-11.1); PLATELET COUNT 265 K/MM3 (134-434); RBC 4.31 M/mm3 (3.60-5.2); RDW 14.2 % (11.6-15.6); WHITE BLOOD COUNT 7.7 K/mm3 (4.0-10.0)
--- NOTE | 2018-05-08 10:50 | PN ---
S CIWA - CIWA Score Nausea/Vomitin-No Nausea/No Vomiting Muscle Tremors: 3 Anxiety: 2 Agitation: 2 Paroxysmal Sweats: 1-Minimal Palms Moist Orientation: 1-Uncertain about Date Tacttile Disturbances: 1-Very Mild Itch/Numbness Auditory Disturbances: 0-None Visual Disturbances: 0-None Headache: 1-Very Mild CIWA-Ar Total Score: 11 BHS Progress Note (SOAP) Subjective: sweat tremor restlessness anxiety Objective: 05/08/18 10:49 Vital Signs Temperature 97.7 F 05/08/18 10:01 Pulse Rate 71 05/08/18 10:01 Respiratory Rate 18 05/08/18 10:01 Blood Pressure 117/69 05/08/18 10:01 O2 Sat by Pulse Oximetry (%) Laboratory Last Values WBC 7.7 K/mm3 (4.0-10.0) 05/08/18 07:00 RBC 4.31 M/mm3 (3.60-5.2) 05/08/18 07:00 Hgb 12.3 GM/dL (10.7-15.3) 05/08/18 07:00 Hct 38.7 % (32.4-45.2) 05/08/18 07:00 MCV 89.8 fl (80-96) 05/08/18 07:00 MCH 28.5 pg (25.7-33.7) 05/08/18 07:00 MCHC 31.7 g/dl (32.0-36.0) L 05/08/18 07:00 RDW 14.2 % (11.6-15.6) 05/08/18 07:00 Plt Count 265 K/MM3 (134-434) D 05/08/18 07:00 MPV 9.1 fl (7.5-11.1) 05/08/18 07:00 POC Glucometer 181 UNITS (80-120) 05/07/18 22:33 lab noted Assessment: 05/08/18 10:49 withdrawal sx Plan: continue detox
[2018-05-08] MEDS: ASPIRIN 81 MG CHEWABLE TABLETS PO SCH (10:59)
[2018-05-08] MEDS: CITALOPRAM HYDROBROMIDE 20 MG TABLET (FP) PO SCH (10:59)
[2018-05-08] MEDS: ATORVASTATIN CA 10 MG TABLET (FP) PO SCH (10:59)
[2018-05-08] MEDS: RAMIPRIL 5 MG CAPSULE (FP) PO SCH (10:59)
[2018-05-08] MEDS: RANITIDINE HCL 150 MG TABLET (FP) PO SCH ×2 (10:59→23:57)
[2018-05-08] MEDS: PRENATAL VITAMINS W/ FOLIC ACID TABLET (FP) PO SCH (10:59)
[2018-05-08 11:06] LABS: ALBUMIN 3.1 g/dl (3.4-5.0); ALK PHOS 143 U/L (45-117); ANION GAP 9 MMOL/L (8-16); BILIRUBIN,TOTAL 0.4 mg/dL (0.2-1); BLOOD UREA NITROGEN 14 mg/dL (7-18); CALCIUM 8.7 mg/dL (8.5-10.1); CHLORIDE 105 mmol/L (98-107); CO2 25 mmol/L (21-32); CREATININE 0.7 mg/dL (0.55-1.3); GLUCOSE,RANDOM 239 mg/dL (74-106); SGOT/AST 21 U/L (15-37); SGPT/ALT 21 U/L (13-61); SODIUM 139 mmol/L (136-145); TOT PROT 6.5 g/dl (6.4-8.2)
--- NOTE | 2018-05-08 11:25 | PN ---
[facility] CIWA - CIWA Score Nausea/Vomitin-No Nausea/No Vomiting Muscle Tremors: 3 Anxiety: 2 Agitation: 1-Slight > Activity Paroxysmal Sweats: 1-Minimal Palms Moist Orientation: 1-Uncertain about Date Tacttile Disturbances: 1-Very Mild Itch/Numbness Auditory Disturbances: 0-None Visual Disturbances: 0-None Headache: 0-None Present CIWA-Ar Total Score: 9 BHS Progress Note (SOAP) Subjective: sweat tremor restlessness anxiety trouble sleep at night Objective: 05/08/18 11:25 Vital Signs Temperature 97.7 F 05/08/18 10:01 Pulse Rate 71 05/08/18 10:01 Respiratory Rate 18 05/08/18 10:01 Blood Pressure 117/69 05/08/18 10:01 O2 Sat by Pulse Oximetry (%) Laboratory Last Values WBC 7.7 K/mm3 (4.0-10.0) 05/08/18 07:00 RBC 4.31 M/mm3 (3.60-5.2) 05/08/18 07:00 Hgb 12.3 GM/dL (10.7-15.3) 05/08/18 07:00 Hct 38.7 % (32.4-45.2) 05/08/18 07:00 MCV 89.8 fl (80-96) 05/08/18 07:00 MCH 28.5 pg (25.7-33.7) 05/08/18 07:00 MCHC 31.7 g/dl (32.0-36.0) L 05/08/18 07:00 RDW 14.2 % (11.6-15.6) 05/08/18 07:00 Plt Count 265 K/MM3 (134-434) D 05/08/18 07:00 MPV 9.1 fl (7.5-11.1) 05/08/18 07:00 Sodium 139 mmol/L (136-145) 05/08/18 07:00 Potassium 4.0 mmol/L (3.5-5.1) 05/08/18 07:00 Chloride 105 mmol/L (98-107) 05/08/18 07:00 Carbon Dioxide 25 mmol/L (21-32) 05/08/18 07:00 Anion Gap 9 MMOL/L (8-16) 05/08/18 07:00 BUN 14 mg/dL (7-18) 05/08/18 07:00 Creatinine 0.7 mg/dL (0.55-1.3) 05/08/18 07:00 Creat Clearance w eGFR > 60 (>60) 05/08/18 07:00 POC Glucometer 181 UNITS (80-120) 05/07/18 22:33 Random Glucose 239 mg/dL (74-106) H 05/08/18 07:00 Calcium 8.7 mg/dL (8.5-10.1) 05/08/18 07:00 Total Bilirubin 0.4 mg/dL (0.2-1) 05/08/18 07:00 AST 21 U/L (15-37) 05/08/18 07:00 ALT 21 U/L (13-61) 05/08/18 07:00 Alkaline Phosphatase 143 U/L (45-117) H 05/08/18 07:00 Total Protein 6.5 g/dl (6.4-8.2) 05/08/18 07:00 Albumin 3.1 g/dl (3.4-5.0) L 05/08/18 07:00 lab noted Assessment: 05/08/18 11:25 withdrawal sx Plan: continue detox
[2018-05-08 21:40] LABS: URINE APPEARANCE SLCLOUDY; URINE BILIRUBIN NEGATIVE (<2.0 mg/dL); URINE COLOR YELLOW; URINE GLUCOSE (UA) NEGATIVE (NEGATIVE); URINE KETONE NEGATIVE (NEGATIVE); URINE LEUK ESTERASE 1+ (NEGATIVE); URINE NITRITE NEGATIVE (NEGATIVE); URINE PROTEIN NEGATIVE (NEGATIVE); URINE UROBILINOGEN NEGATIVE mg/dL (0.2-1.0)
[2018-05-08 22:19] LABS: EPI CELLS FEW /HPF (FEW); URINE MUCUS RARE
[2018-05-08] MEDS: INSULIN (LEVEMIR) 100 UNITS/ML UNITS SQ SCH (23:54)
[2018-05-08] MEDS: traZODone HCL 50 MG TABLET (FP) PO SCH (23:54)
[2018-05-08] MEDS: THIAMINE HCL 100 MG TABLET (FP) PO SCH (23:57)
[2018-05-08] MEDS: QUEtiapine FUMARATE 100 MG TABLET (FP) PO SCH (23:57)
[2018-05-09] MEDS: GABAPENTIN 300 MG CAPSULE (FP) PO SCH ×3 (06:17→22:43)
[2018-05-09] MEDS: chlordiazePOXIDE HCL 25 MG CAPSULE PO SCH ×3 (06:22→17:36)
[2018-05-09] MEDS: INSULIN (NOVOLOG) ASPART 100 UNITS/ML 10ML VIAL SQ SCH ×3 (07:23→17:36)
[2018-05-09] MEDS: RAMIPRIL 5 MG CAPSULE (FP) PO SCH (10:29)
[2018-05-09] MEDS: CITALOPRAM HYDROBROMIDE 20 MG TABLET (FP) PO SCH (10:29)
[2018-05-09] MEDS: ATORVASTATIN CA 10 MG TABLET (FP) PO SCH (10:29)
[2018-05-09] MEDS: PRENATAL VITAMINS W/ FOLIC ACID TABLET (FP) PO SCH (10:30)
[2018-05-09] MEDS: ASPIRIN 81 MG CHEWABLE TABLETS PO SCH (10:30)
[2018-05-09] MEDS: RANITIDINE HCL 150 MG TABLET (FP) PO SCH ×2 (10:30→22:43)
--- NOTE | 2018-05-09 12:05 | PN ---
BHS Progress Note (SOAP) Subjective: feeling better no tremor less sweat no gi distress social with peers in day room Objective: 05/09/18 12:07 Vital Signs Temperature 98.6 F 05/09/18 09:17 Pulse Rate 85 05/09/18 09:17 Respiratory Rate 17 05/09/18 09:17 Blood Pressure 108/80 05/09/18 09:17 O2 Sat by Pulse Oximetry (%) Laboratory Last Values WBC 7.7 K/mm3 (4.0-10.0) 05/08/18 07:00 RBC 4.31 M/mm3 (3.60-5.2) 05/08/18 07:00 Hgb 12.3 GM/dL (10.7-15.3) 05/08/18 07:00 Hct 38.7 % (32.4-45.2) 05/08/18 07:00 MCV 89.8 fl (80-96) 05/08/18 07:00 MCH 28.5 pg (25.7-33.7) 05/08/18 07:00 MCHC 31.7 g/dl (32.0-36.0) L 05/08/18 07:00 RDW 14.2 % (11.6-15.6) 05/08/18 07:00 Plt Count 265 K/MM3 (134-434) D 05/08/18 07:00 MPV 9.1 fl (7.5-11.1) 05/08/18 07:00 Sodium 139 mmol/L (136-145) 05/08/18 07:00 Potassium 4.0 mmol/L (3.5-5.1) 05/08/18 07:00 Chloride 105 mmol/L (98-107) 05/08/18 07:00 Carbon Dioxide 25 mmol/L (21-32) 05/08/18 07:00 Anion Gap 9 MMOL/L (8-16) 05/08/18 07:00 BUN 14 mg/dL (7-18) 05/08/18 07:00 Creatinine 0.7 mg/dL (0.55-1.3) 05/08/18 07:00 Creat Clearance w eGFR > 60 (>60) 05/08/18 07:00 POC Glucometer 319 UNITS (80-120) 05/09/18 07:02 Random Glucose 239 mg/dL (74-106) H 05/08/18 07:00 Calcium 8.7 mg/dL (8.5-10.1) 05/08/18 07:00 Total Bilirubin 0.4 mg/dL (0.2-1) 05/08/18 07:00 AST 21 U/L (15-37) 05/08/18 07:00 ALT 21 U/L (13-61) 05/08/18 07:00 Alkaline Phosphatase 143 U/L (45-117) H 05/08/18 07:00 Total Protein 6.5 g/dl (6.4-8.2) 05/08/18 07:00 Albumin 3.1 g/dl (3.4-5.0) L 05/08/18 07:00 Urine Color Yellow 05/08/18 18:18 Urine Appearance Slcloudy 05/08/18 18:18 Urine pH 5.0 (5.0-8.0) 05/08/18 18:18 Ur Specific [place] 1.021 (1.010-1.035) 05/08/18 18:18 Urine Protein Negative (NEGATIVE) 05/08/18 18:18 Urine Glucose (UA) Negative (NEGATIVE) 05/08/18 18:18 Urine Ketones Negative (NEGATIVE) 05/08/18 18:18 Urine Blood 2+ (NEGATIVE) H 05/08/18 18:18 Urine Nitrite Negative (NEGATIVE) 05/08/18 18:18 Urine Bilirubin Negative (<2.0 mg/dL) 05/08/18 18:18 Urine Urobilinogen Negative mg/dL (0.2-1.0) 05/08/18 18:18 Ur Leukocyte Esterase 1+ (NEGATIVE) H 05/08/18 18:18 Urine WBC (Auto) 9 /hpf (3-5) 05/08/18 18:18 Urine RBC (Auto) 2 /hpf (0-3) 05/08/18 18:18 Ur Epithelial Cells Few /HPF (FEW) 05/08/18 18:18 Urine Mucus Rare 05/08/18 18:18 RPR Titer Nonreactive (NONREACTIVE) 05/08/18 07:00 lab noted Assessment: 05/09/18 12:07 withdrawal sx Plan: continue detox
[2018-05-09] MEDS: INSULIN (LEVEMIR) 100 UNITS/ML UNITS SQ SCH (22:42)
[2018-05-09] MEDS: chlordiazePOXIDE 5 MG CAPSULE PO SCH (22:42)
[2018-05-09] MEDS: traZODone HCL 50 MG TABLET (FP) PO SCH (22:42)
[2018-05-09] MEDS: QUEtiapine FUMARATE 100 MG TABLET (FP) PO SCH (22:43)
[2018-05-09] MEDS: THIAMINE HCL 100 MG TABLET (FP) PO SCH (22:43)
[2018-05-10] MEDS: GABAPENTIN 300 MG CAPSULE (FP) PO SCH ×3 (06:48→22:42)
[2018-05-10] MEDS: chlordiazePOXIDE 5 MG CAPSULE PO SCH ×2 (06:48→10:14)
[2018-05-10] MEDS: INSULIN (NOVOLOG) ASPART 100 UNITS/ML 10ML VIAL SQ SCH ×3 (07:48→17:37)
[2018-05-10] MEDS ORDERED: INSULIN (NOVOLOG) ASPART 100 UNITS/ML 10ML VIAL ONE ×3 (08:30→16:57)
[2018-05-10] MEDS: RANITIDINE HCL 150 MG TABLET (FP) PO SCH ×2 (09:35→22:41)
[2018-05-10] MEDS: PRENATAL VITAMINS W/ FOLIC ACID TABLET (FP) PO SCH (09:35)
[2018-05-10] MEDS: ASPIRIN 81 MG CHEWABLE TABLETS PO SCH (09:35)
[2018-05-10] MEDS: CITALOPRAM HYDROBROMIDE 20 MG TABLET (FP) PO SCH (09:35)
[2018-05-10] MEDS: ATORVASTATIN CA 10 MG TABLET (FP) PO SCH (09:35)
[2018-05-10] MEDS: RAMIPRIL 5 MG CAPSULE (FP) PO SCH (09:37)
--- NOTE | 2018-05-10 11:20 | PN ---
BHS Progress Note (SOAP) Subjective: sleepy groggy Objective: 05/10/18 11:17 Vital Signs Temperature 98.1 F 05/10/18 09:22 Pulse Rate 76 05/10/18 09:22 Respiratory Rate 18 05/10/18 09:22 Blood Pressure 110/74 05/10/18 09:22 O2 Sat by Pulse Oximetry (%) aaox3 ambulating no acute distress librium 15mg d/c decreased 10mg to 2 doses. encouraged fluids intake Assessment: 05/10/18 11:19 mild withdrawals sx Plan: continue detox as ordered d/c in am
[2018-05-10] MEDS: traZODone HCL 50 MG TABLET (FP) PO SCH (22:41)
[2018-05-10] MEDS: QUEtiapine FUMARATE 100 MG TABLET (FP) PO SCH (22:41)
[2018-05-10] MEDS: THIAMINE HCL 100 MG TABLET (FP) PO SCH (22:42)
[2018-05-10] MEDS: chlordiazePOXIDE HCL 10 MG CAPSULE PO SCH (22:42)
[2018-05-10] MEDS: INSULIN (LEVEMIR) 100 UNITS/ML UNITS SQ SCH (22:42)
[2018-05-11] MEDS: GABAPENTIN 300 MG CAPSULE (FP) PO SCH ×3 (06:00→22:22)
[2018-05-11] MEDS: chlordiazePOXIDE HCL 10 MG CAPSULE PO SCH (06:52)
[2018-05-11] MEDS: INSULIN (NOVOLOG) ASPART 100 UNITS/ML 10ML VIAL SQ SCH ×3 (08:24→17:50)
[2018-05-11] MEDS ORDERED: INSULIN (NOVOLOG) ASPART 100 UNITS/ML 10ML VIAL ONE ×2 (08:26→11:46)
[2018-05-11] MEDS: RAMIPRIL 5 MG CAPSULE (FP) PO SCH (09:18)
[2018-05-11] MEDS: CITALOPRAM HYDROBROMIDE 20 MG TABLET (FP) PO SCH (09:18)
[2018-05-11] MEDS: ASPIRIN 81 MG CHEWABLE TABLETS PO SCH (09:18)
[2018-05-11] MEDS: ATORVASTATIN CA 10 MG TABLET (FP) PO SCH (09:19)
[2018-05-11] MEDS: RANITIDINE HCL 150 MG TABLET (FP) PO SCH ×2 (09:19→22:22)
[2018-05-11] MEDS: PRENATAL VITAMINS W/ FOLIC ACID TABLET (FP) PO SCH (09:19)
--- NOTE | 2018-05-11 11:37 | PN ---
BHS Progress Note (SOAP) Subjective: No new complaint Objective: 05/11/18 11:33 A & O x 3 Ambulates steadily on unit In no distress Vital Signs Temperature 97.2 F L 05/11/18 09:45 Pulse Rate 64 05/11/18 09:45 Respiratory Rate 18 05/11/18 09:45 Blood Pressure 110/73 05/11/18 09:45 O2 Sat by Pulse Oximetry (%) Assessment: 05/11/18 11:33 detox completed Plan: pt completed detox Pt for discharge but no inpatient bed available, pt is homeless Pt will be held over till tomorrow to allow for rehab admission as pt @ this time has high risk for lapse Counselor prioritizing rehab admission for pt
[2018-05-11] MEDS: traZODone HCL 50 MG TABLET (FP) PO SCH (22:22)
[2018-05-11] MEDS: THIAMINE HCL 100 MG TABLET (FP) PO SCH (22:22)
[2018-05-11] MEDS: QUEtiapine FUMARATE 100 MG TABLET (FP) PO SCH (22:22)
[2018-05-11] MEDS: INSULIN (LEVEMIR) 100 UNITS/ML UNITS SQ SCH (22:22)
[2018-05-12] MEDS: GABAPENTIN 300 MG CAPSULE (FP) PO SCH (05:55)
[2018-05-12] MEDS: INSULIN (NOVOLOG) ASPART 100 UNITS/ML 10ML VIAL SQ SCH (07:28)
--- NOTE | 2018-05-12 08:56 | DS ---
[facility] Detox Discharge Summary Admission Date: 05/07/18 Discharge Date: 05/12/18 - History Present History: Alcohol Dependence Additional Comments: 48 years old female admitted on 05/07/18 for alcohol withdrawal sx completed alcohol detox regimen tolerated well denies alcohol withdrawal sx alert oriented x 3 no acute distress aftercare [facility] - Physical Exam Results Vital Signs: Vital Signs Temperature 97.3 F L 05/12/18 06:00 Pulse Rate 71 05/12/18 06:00 Respiratory Rate 18 05/12/18 06:00 Blood Pressure 104/60 05/12/18 06:00 O2 Sat by Pulse Oximetry (%) Pertinent Admission Physical Exam Findings: alcohol withdrawal sx Vital Signs Temperature 96.1 F L 05/12/18 09:43 Pulse Rate 79 05/12/18 09:43 Respiratory Rate 16 05/12/18 09:43 Blood Pressure 100/68 05/12/18 09:43 O2 Sat by Pulse Oximetry (%) Laboratory Last Values WBC 7.7 K/mm3 (4.0-10.0) 05/08/18 07:00 RBC 4.31 M/mm3 (3.60-5.2) 05/08/18 07:00 Hgb 12.3 GM/dL (10.7-15.3) 05/08/18 07:00 Hct 38.7 % (32.4-45.2) 05/08/18 07:00 MCV 89.8 fl (80-96) 05/08/18 07:00 MCH 28.5 pg (25.7-33.7) 05/08/18 07:00 MCHC 31.7 g/dl (32.0-36.0) L 05/08/18 07:00 RDW 14.2 % (11.6-15.6) 05/08/18 07:00 Plt Count 265 K/MM3 (134-434) D 05/08/18 07:00 MPV 9.1 fl (7.5-11.1) 05/08/18 07:00 Sodium 139 mmol/L (136-145) 05/08/18 07:00 Potassium 4.0 mmol/L (3.5-5.1) 05/08/18 07:00 Chloride 105 mmol/L (98-107) 05/08/18 07:00 Carbon Dioxide 25 mmol/L (21-32) 05/08/18 07:00 Anion Gap 9 MMOL/L (8-16) 05/08/18 07:00 BUN 14 mg/dL (7-18) 05/08/18 07:00 Creatinine 0.7 mg/dL (0.55-1.3) 05/08/18 07:00 Creat Clearance w eGFR > 60 (>60) 05/08/18 07:00 POC Glucometer 367 UNITS (80-120) 05/11/18 16:54 Random Glucose 239 mg/dL (74-106) H 05/08/18 07:00 Calcium 8.7 mg/dL (8.5-10.1) 05/08/18 07:00 Total Bilirubin 0.4 mg/dL (0.2-1) 05/08/18 07:00 AST 21 U/L (15-37) 05/08/18 07:00 ALT 21 U/L (13-61) 05/08/18 07:00 Alkaline Phosphatase 143 U/L (45-117) H 05/08/18 07:00 Total Protein 6.5 g/dl (6.4-8.2) 05/08/18 07:00 Albumin 3.1 g/dl (3.4-5.0) L 05/08/18 07:00 Urine Color Yellow 05/08/18 18:18 Urine Appearance Slcloudy 05/08/18 18:18 Urine pH 5.0 (5.0-8.0) 05/08/18 18:18 Ur Specific [place] 1.021 (1.010-1.035) 05/08/18 18:18 Urine Protein Negative (NEGATIVE) 05/08/18 18:18 Urine Glucose (UA) Negative (NEGATIVE) 05/08/18 18:18 Urine Ketones Negative (NEGATIVE) 05/08/18 18:18 Urine Blood 2+ (NEGATIVE) H 05/08/18 18:18 Urine Nitrite Negative (NEGATIVE) 05/08/18 18:18 Urine Bilirubin Negative (<2.0 mg/dL) 05/08/18 18:18 Urine Urobilinogen Negative mg/dL (0.2-1.0) 05/08/18 18:18 Ur Leukocyte Esterase 1+ (NEGATIVE) H 05/08/18 18:18 Urine WBC (Auto) 9 /hpf (3-5) 05/08/18 18:18 Urine RBC (Auto) 2 /hpf (0-3) 05/08/18 18:18 Ur Epithelial Cells Few /HPF (FEW) 05/08/18 18:18 Urine Mucus Rare 05/08/18 18:18 RPR Titer Nonreactive (NONREACTIVE) 05/08/18 07:00 lab noted - Treatment Hospital Course: Detox Protocol Followed, Detoxed Safely, Responded well, Discharged Condition Good, Rehab Referral Accepted Patient has Accepted a Rehab Referral to: [facility] - Medication Discharge Medications: Ambulatory Orders Aspirin [ASA -] 81 mg PO DAILY 11/08/16 Citalopram Hydrobromide [Celexa -] 40 mg PO DAILY #60 tablet 05/08/18 Citalopram Hydrobromide [Celexa -] 40 mg PO DAILY #60 tablet 05/08/18 Quetiapine Fumarate [Seroquel] 100 mg PO HS #30 tablet 05/08/18 Quetiapine Fumarate [Seroquel] 100 mg PO HS #30 tablet 05/08/18 traZODone HCL [Desyrel -] 150 mg PO HS #60 tablet 05/08/18 traZODone HCL [Trazodone HCl] 150 mg PO HS #30 tablet 05/08/18 Atorvastatin Ca [Lipitor] 10 mg PO DAILY #30 tablet 05/09/18 Gabapentin [Neurontin -] 300 mg PO TID #90 capsule 05/09/18 Insulin (Levemir) [Levemir Vial] 16 unit SQ HS #1 units 05/09/18 Insulin Glargine,Hum.rec.anlog [Basaglar Kwikpen U-100] 12 unit SQ HS #1 insuln.pen 05/09/18 Insulin Lispro [Admelog Solostar] 8 unit SQ BIDAC #1 insuln.pen 05/09/18 Insulin Lispro [Humalog Kwikpen U-100] 7 unit SQ TIDCM #1 insuln.pen 05/09/18 Ramipril [Altace] 5 mg PO DAILY #30 capsule 05/09/18 Ranitidine [Zantac -] 150 mg PO BID #60 tablet 05/09/18 - Diagnosis (1) Alcohol dependence with withdrawal delirium Status: Acute (2) Weight loss Status: Acute (3) DM Diabetes mellitus type 2 Status: Chronic (4) GERD (gastroesophageal reflux disease) Status: Chronic Qualifiers: Esophagitis presence: esophagitis presence not specified Qualified Code(s) : K21.9 - Gastro-esophageal reflux disease without esophagitis (5) Hypercholesterolemia Status: Chronic (6) Hypertension Status: Chronic Qualifiers: Hypertension type: essential hypertension Qualified Code(s): I10 - Essential (primary) hypertension (7) Substance induced mood disorder Status: Suspected - AMA Did Patient Leave Against Medical Advice: No
[2018-05-12 09:44] VITALS: BP 100/68; PULSE 79; TEMP 96.1
[2018-05-12] MEDS: RAMIPRIL 5 MG CAPSULE (FP) PO SCH (10:10)
[2018-05-12] MEDS: ASPIRIN 81 MG CHEWABLE TABLETS PO SCH (10:10)
[2018-05-12] MEDS: CITALOPRAM HYDROBROMIDE 20 MG TABLET (FP) PO SCH (10:10)
[2018-05-12] MEDS: ATORVASTATIN CA 10 MG TABLET (FP) PO SCH (10:10)
[2018-05-12] MEDS: RANITIDINE HCL 150 MG TABLET (FP) PO SCH (10:10)
[2018-05-12] MEDS: PRENATAL VITAMINS W/ FOLIC ACID TABLET (FP) PO SCH (10:10)
== END 2018-05-12 10:29 | disposition home or self-care (01) | DRG 774 ==
LOC: YASAS 13:10 → Y6N 16:42
PROC: HZ2ZZZZ Detoxification Services for Substance Abuse Treatment (ICD-10-PCS; principal; 2018-05-07)
DX: F10.231 Alcohol dependence with withdrawal delirium (principal); F10.230 Alcohol dependence with withdrawal, uncomplicated; F14.20 Cocaine dependence, uncomplicated; F17.210 Nicotine dependence, cigarettes, uncomplicated; F19.24 Other psychoactive substance dependence with psychoactive substance-induced mood disorder; F19.282 Other psychoactive substance dependence with psychoactive substance-induced sleep disorder; G62.9 Polyneuropathy, unspecified; I10 Essential (primary) hypertension; E78.00 Pure hypercholesterolemia, unspecified; E11.65 Type 2 diabetes mellitus with hyperglycemia; Z79.4 Long term (current) use of insulin; K21.9 Gastro-esophageal reflux disease without esophagitis; B37.3 Candidiasis of vulva and vagina; R42 Dizziness and giddiness; R35.0 Frequency of micturition; R63.4 Abnormal weight loss; Z68.24 Body mass index [BMI] 24.0-24.9, adult; Z91.5 Personal history of self-harm; Z59.0 Homelessness
CPT/HCPCS: 36415; 80053; 81003; 81015; 82962; 85027; 86593

== ENCOUNTER 2020-02-14 04:15 | Inpatient (IN) | payer OTHER ==
[2020-02-14 04:21] VITALS: BMI 27.3
--- NOTE | 2020-02-14 04:23 | PDOC ---
History of Present Illness - General Chief Complaint: Blood Sugar Problem Stated Complaint: PAIN Time Seen by Provider: 02/14/20 04:23 History Source: Patient Exam Limitations: No Limitations - History of Present Illness Initial Comments: 02/14/20 04:24 50yF w PMHx DM, EtOH abuse, trichomoniasis presenting w 3d hyperglycemia and 2mo fishy vaginal discharge. 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 Denies fever, cough, chest pain, SOB, diarrhea. Past History - Medical History Allergies/Adverse Reactions: Allergies Allergy/AdvReac Type Severity Reaction Status Date / Time No Known Allergies Allergy Verified 02/14/20 04:20 Home Medications: Ambulatory Orders Aspirin [ASA -] 81 mg PO DAILY 11/08/16 Citalopram Hydrobromide [Celexa -] 40 mg PO DAILY #60 tablet 05/08/18 Citalopram Hydrobromide [Celexa -] 40 mg PO DAILY #60 tablet 05/08/18 Quetiapine Fumarate [Seroquel -] 100 mg PO HS #30 tablet 05/08/18 Quetiapine Fumarate [Seroquel -] 100 mg PO HS #30 tablet 05/08/18 traZODone HCL [Desyrel -] 150 mg PO HS #60 tablet 05/08/18 traZODone HCL [Trazodone HCl] 150 mg PO HS #30 tablet 05/08/18 Atorvastatin Ca [Lipitor] 10 mg PO DAILY #30 tablet 05/09/18 Gabapentin [Neurontin -] 300 mg PO TID #90 capsule 05/09/18 Insulin (Levemir) [Levemir Vial] 16 unit SQ HS #1 units 05/09/18 Insulin Glargine,Hum.rec.anlog [Basaglar Kwikpen U-100] 12 unit SQ HS #1 insuln.pen 05/09/18 Insulin Lispro [Admelog Solostar] 8 unit SQ BIDAC #1 insuln.pen 05/09/18 Insulin Lispro [Humalog Kwikpen U-100] 7 unit SQ TIDCM #1 insuln.pen 05/09/18 Ramipril [Altace] 5 mg PO DAILY #30 capsule 05/09/18 Ranitidine [Zantac -] 150 mg PO BID #60 tablet 05/09/18 Anemia: No Asthma: No Cancer: No Cardiac Disorders: No CVA: No COPD: No CHF: No Dementia: No Diabetes: Yes GI Disorders: Yes (GERD) Disorders: No HTN: Yes Hypercholesterolemia: Yes (CRESTOR) Kidney Stones: No Liver Disease: No Seizures: No Thyroid Disease: No - Surgical History Abdominal Surgery: No Appendectomy: No Cardiac Surgery: No Cholecystectomy: No Lung Surgery: No Neurologic Surgery: No Orthopedic Surgery: No - Reproductive History PID: No - Immunization History Immunization Up to Date: Yes - Psycho-Social/Smoking History Smoking History: Never smoked Have you smoked in the past 12 months: Yes Number of Cigarettes Smoked Daily: 10 Cigars Per Day: 0 'Breaking Loose' booklet given: 05/07/18 Review of Systems - Review of Systems Constitutional: No: Chills, Fever HEENTM: No: Eye Pain, Ear Discharge Respiratory: No: Cough, Shortness of Breath Cardiac (ROS): No: Chest Pain, Lightheadedness ABD/GI: Yes: Nausea, Vomiting. No: Diarrhea : Yes: Discharge, Frequency. No: Burning Musculoskeletal: No: Back Pain, Joint Pain Integumentary: No: Bruising, Dryness Neurological: No: Headache, Seizure Psychiatric: No: Anxiety, Depression Endocrine: No: Intolerance to Cold, Intolerance to Heat Hematologic/Lymphatic: No: Anemia, Blood Clots *Physical Exam - Vital Signs Last Vital Signs Temp Pulse Resp BP Pulse Ox 97.8 F 85 18 135/72 95 02/14/20 04:02/14/20 04:02/14/20 04:02/14/20 04:02/14/20 04:17 - Physical Exam General Appearance: Yes: Nourished, Appropriately Dressed, Mild Distress HEENT: positive: EOMI, TIERRA, Normal Voice, Hearing Grossly Normal. negative: Scleral Icterus (R), Scleral Icterus (L) Respiratory/Chest: positive: Lungs Clear, Normal Breath Sounds. negative: Chest Tender, Respiratory Distress Cardiovascular: positive: Regular Rhythm, Regular Rate, S1, S2. negative: Edema, Murmur Gastrointestinal/Abdominal: positive: Normal Bowel Sounds, Tender (mild epigastric), Flat, Soft. negative: Organomegaly Musculoskeletal: negative: CVA Tenderness (R), CVA Tenderness (L) Integumentary: positive: Normal Color, Dry, Warm Neurologic: positive: Fully Oriented, Alert, Normal Response ED Treatment Course - LABORATORY CBC & Chemistry Diagram: 02/14/20 06:50 02/14/20 06:50 Medical Decision Making - Medical Decision Making 02/14/20 07:29 EKG - NSR, HR 96, QTc 449, no ST changes CXR - clear lung adam pelvic - yellow-green foul smelling discharge, closed os --- 50yF w PMHx DM, EtOH abuse, trichomoniasis presenting w 3d hyperglycemia and 2mo fishy vaginal discharge. Didnt take insulin at [employer] for the past 3d w 1d vomiting, mild radiating epigastric pain, increased urinary frequency. Denies fever, cough, chest pain, SOB, diarrhea. 1. DKA vs hyperglycemia 2. Discharge - likely trichomoniasis No evidence of UTI vs PNA Given 2L NS, azithromycin, rocephin, flagyl Anticipate admit - pending lab results - admit ICU if DKA, treat and DC if hyperglycemia Discharge - Discharge Information Problems reviewed: Yes Clinical Impression/Diagnosis: Hyperglycemia Vaginitis Qualifiers: Chronicity: chronic Qualified Code(s): N76.1 - Subacute and chronic vaginitis Condition: Improved - Follow up/Referral Referrals: Kavitha Kraus MD [Primary Care Provider] - - Patient Discharge Instructions - Post Discharge Activity
--- NOTE | 2020-02-14 04:38 | PDOC ---
Attending Attestation - Resident Resident Name: Yazan Singh - HPI HPI: 02/14/20 06:13 Pt presents to the ED complaining of nausea, vomiting and epigastric pain for the last day. Admits to non compliance with medications. Denies fever. also complains of vaginal discharge. History of recurrent trich infections. 02/14/20 06:16 - Physicial Exam PE: 02/14/20 06:19 Agree with resident exam. Patient is alert and oriented and in no acute distress. Lungs are clear. Heart regular rate and rhythm. Abdomen soft, non tender, non distended without guarding or rebound. - Medical Decision Making 02/14/20 06:20 Pt presents to the ED complaining of nausea and vomiting similar to previous episodes of DKA. Will check labs and treat with IV hydration and, if necessary, insulin. Will admit to medicine for continued management. Discharge - Discharge Information Problems reviewed: Yes Clinical Impression/Diagnosis: Hyperglycemia Vaginitis Qualifiers: Chronicity: chronic Qualified Code(s): N76.1 - Subacute and chronic vaginitis DKA (diabetic ketoacidoses) Qualifiers: Diabetes mellitus type: due to underlying condition Diabetes mellitus complication detail: without coma Qualified Code(s): E08.10 - Diabetes mellitus due to underlying condition with ketoacidosis without coma Condition: Improved Disposition: ASSISTED LIVING FACILITY - Admission Yes - Follow up/Referral - Patient Discharge Instructions - Post Discharge Activity
[2020-02-14] MEDS ORDERED: SODIUM CHLORIDE 0.9% 500 ML INFUS.BAG IV ONE (04:47)
[2020-02-14] MEDS ORDERED: ONDANSETRON 4 MG/2 ML VIAL IVPUSH ONE (04:48)
[2020-02-14 05:38] LABS: URINE APPEARANCE CLEAR; URINE BILIRUBIN NEGATIVE (NEGATIVE); URINE COLOR YELLOW; URINE GLUCOSE (UA) 2+ (NEGATIVE); URINE KETONE 4+ (NEGATIVE); URINE LEUK ESTERASE NEGATIVE (NEGATIVE); URINE NITRITE NEGATIVE (NEGATIVE); URINE PROTEIN NEGATIVE (NEGATIVE); URINE UROBILINOGEN 0.2 mg/dL (0.2-1.0)
[2020-02-14] MEDS ORDERED: metroNIDAZOLE 250 MG TABLET PO ONE (05:42)
[2020-02-14] MEDS ORDERED: AZITHROMYCIN 500 MG TABLET PO ONE (05:42)
[2020-02-14] MEDS ORDERED: ACETAMINOPHEN 1000 MG/100 ML VIAL (NON FORMULARY) IVPB ONE (06:11)
[2020-02-14] MEDS ORDERED: FAMOTIDINE 20 MG/50 ML IVPB 20 MG/50 ML MG IVPB ONE ×2 (06:11→06:58)
[2020-02-14] MEDS ORDERED: AZITHROMYCIN 250 MG TABLET ONE (06:34)
[2020-02-14] MEDS ORDERED: metroNIDAZOLE 250 MG TABLET ONE (06:34)
[2020-02-14] MEDS ORDERED: ACETAMINOPHEN INJECTION 100 ML IVPB ONE (06:34)
[2020-02-14 07:04] LABS: BASO % 0.8 % (0-2.0); HEMOGLOBIN 14.5 GM/dL (10.7-15.3); LYMPH % 12.9 % (8-40); MCHC 32.2 g/dl (32.0-36.0); MEAN CELL VOLUME 86.9 fl (80-96); MEAN PLT VOLUME 9.4 fl (7.5-11.1); MONO % 4.7 % (3.8-10.2); NEUT % 81.6 % (42.8-82.8); PLATELET COUNT 224 K/MM3 (134-434); RBC 5.18 M/mm3 (3.60-5.2); RDW 14.1 % (11.6-15.6); WHITE BLOOD COUNT 15.6 K/mm3 (4.0-10.0)
[2020-02-14 07:24] LABS: VENOUS BASE EXCESS -10.8 mmol/L (-2-2); VENOUS O2 SATURATION 47.3 % (70-80); VENOUS PCO2 38.6 mmHg (38-52); VENOUS PH 7.235 (7.310-7.410)
--- NOTE | 2020-02-14 07:28 | PDOC ---
*Physical Exam - Vital Signs Last Vital Signs Temp Pulse Resp BP Pulse Ox 97.8 F 85 18 135/72 95 02/14/20 04:17 02/14/20 04:17 02/14/20 04:17 02/14/20 04:17 02/14/20 04:17 - Physical Exam 02/14/20 07:27 Assumed care at 7am sign out. Pending labs. DKA vs. hyperglycemia. 02/14/20 08:18 Labs indicate DKA -pH 7.235, corrected Na 139, K hemolized, Bicarb 16, anion gap 23, glucose 486, beta hydroxybutarate 75.9 -Repeat BMP -Mg/Phos ICU aware of patient and will endorse to [facility] CSR 02/14/20 08:46 ICU accepting patient and there is a bed. ED Treatment Course - LABORATORY CBC & Chemistry Diagram: 02/14/20 06:50 02/14/20 06:50 - ADDITIONAL ORDERS Additional order review: Laboratory Results 02/14/20 05:19 Urine Color Yellow Urine Appearance Clear Urine pH 5.0 Ur Specific [place] 1.021 Urine Protein Negative Urine Glucose (UA) 2+ H Urine Ketones 4+ H Urine Blood Negative Urine Nitrite Negative Urine Bilirubin Negative Urine Urobilinogen 0.2 Ur Leukocyte Esterase Negative 02/14/20 06:50 RBC 5.18 MCV 86.9 MCHC 32.2 RDW 14.1 MPV 9.4 Neutrophils % 81.6 D Lymphocytes % 12.9 D Monocytes % 4.7 Eosinophils % 0.0 D Basophils % 0.8 - Medications Given in the ED: ED Medications Discontinued Medications Generic Name Dose Route Start Last Admin Trade Name Cem PRN Reason Stop Dose Admin Acetaminophen 1,000 mg 02/14/20 06:11 02/14/20 06:42 Ofirmev Injection - IVPB 02/14/20 06:12 1,000 mg ONCE ONE Administration Azithromycin 1,000 mg 02/14/20 05:42 02/14/20 06:42 Zithromax PO 02/14/20 05:43 1,000 mg ONCE ONE Administration Famotidine/Sodium Chloride 20 mg in 50 mls @ 100 mls/hr 02/14/20 06:11 02/14/20 07:01 Pepcid 20 Mg Premixed Ivpb - IVPB 02/14/20 06:40 100 mls/hr ONCE ONE Administration Metronidazole 500 mg 07/25/20 05:42 02/14/20 06:42 Flagyl - PO 02/14/20 05:43 500 mg ONCE ONE Administration Ondansetron HCl 4 mg 02/14/20 04:48 02/14/20 05:30 Zofran Injection IVPUSH 02/14/20 04:49 4 mg ONCE ONE Administration Sodium Chloride 2,000 ml 02/14/20 04:47 02/14/20 05:30 Normal Saline - IV 02/14/20 04:48 2,000 ml ONCE ONE Administration Discharge - Discharge Information Problems reviewed: Yes Clinical Impression/Diagnosis: Hyperglycemia Vaginitis Qualifiers: Chronicity: chronic Qualified Code(s): N76.1 - Subacute and chronic vaginitis DKA (diabetic ketoacidoses) Qualifiers: Diabetes mellitus type: due to underlying condition Diabetes mellitus complication detail: without coma Qualified Code(s): E08.10 - Diabetes mellitus due to underlying condition with ketoacidosis without coma Condition: Improved - Admission Yes - Follow up/Referral - Patient Discharge Instructions - Post Discharge Activity
[2020-02-14 07:47] LABS: ALBUMIN 4.2 g/dl (3.4-5.0); ALK PHOS 113 U/L (45-117); ANION GAP 23 MMOL/L (8-16); BILIRUBIN,TOTAL 0.9 mg/dL (0.2-1); BLOOD UREA NITROGEN 17.8 mg/dL (7-18); CALCIUM 10.3 mg/dL (8.5-10.1); CHLORIDE 91 mmol/L (98-107); CO2 16 mmol/L (21-32); CREATININE 1.4 mg/dL (0.55-1.3); LIPASE 16 U/L (73-393); POTASSIUM 5.7 mmol/L (3.5-5.1); SGOT/AST 24 U/L (15-37); SGPT/ALT 17 U/L (13-61); SODIUM 130 mmol/L (136-145); TOT PROT 8.3 g/dl (6.4-8.2)
[2020-02-14] MEDS ORDERED: INSULIN REGULAR HUMAN 100 UNITS/ML *VIAL* (FOR IVP) IVPUSH ONE (07:57)
[2020-02-14 08:00] LABS: GLUCOSE,RANDOM 486 mg/dL (74-106)
[2020-02-14] MEDS ORDERED: INSULIN REGULAR 100 UNITS in SODIUM CHLORIDE 99 ML IVPB SCH ×4 (08:00→20:00)
[2020-02-14] MEDS ORDERED: INSULIN REGULAR HUMAN 100 UNITS/ML *VIAL ONE (08:45)
[2020-02-14] MEDS ORDERED: METOCLOPRAMIDE HCL INJECTION 10 MG/2 ML VIAL IVPB ONE (09:18)
[2020-02-14] MEDS ORDERED: METOCLOPRAMIDE HCL INJECTION 10 MG/2 ML VIAL ONE (09:19)
--- NOTE | 2020-02-14 10:27 | CONSULT ---
Consult Consult Specialty:: Pulm/CCM Reason for Consultation:: DKA - History of Present Illness Chief Complaint: N/V History of Present Illness: 50yF w PMHx DM, EtOH abuse, trichomoniasis presenting w 3d hyperglycemia and 2mo fishy vaginal discharge. Denied taking insulin for the past 3d. C/o N/V, mild radiating epigastric pain, increased urinary frequency. Denies fever, cough, chest pain, SOB, diarrhea. Labs notable for BG 486, BHB 75.9, HCO3 16, WBC 15.6 creat 1.4, K 5.7, BCG neg. Started on Insulin drip with DKA and transferred to ICU for further management. In ICU rec'd on Insulin at 8.4. BG 542. Drip increased to 10/U/h. Initially agitated and uncooperative but directable. Vomited x1. C/o malodorous vaginal drainage and severe BLE neuropathy. 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 Has implanted loin trimmer. States unable to f/u with cardiology d/t COVID pandemic. Persistent wretching and vomiting. - History Source History Provided By: Medical Record - Past Medical History ...LMP: 05/05/18 - Alcohol/Substance Use Hx Alcohol Use: Yes - Smoking History Have you smoked in the past 12 months: Yes Aproximately how many cigarettes per day: 10 - Social History Usual Living Arrangement: Other (custodial) Home Medications - Allergies Allergies/Adverse Reactions: Allergies Allergy/AdvReac Type Severity Reaction Status Date / Time No Known Allergies Allergy Verified 02/14/20 04:20 - Home Medications Home Medications: Ambulatory Orders Aspirin [ASA -] 81 mg PO DAILY 11/08/16 Citalopram Hydrobromide [Celexa -] 40 mg PO DAILY #60 tablet 05/08/18 Citalopram Hydrobromide [Celexa -] 40 mg PO DAILY #60 tablet 05/08/18 Quetiapine Fumarate [Seroquel -] 100 mg PO HS #30 tablet 05/08/18 Quetiapine Fumarate [Seroquel -] 100 mg PO HS #30 tablet 05/08/18 traZODone HCL [Desyrel -] 150 mg PO HS #60 tablet 05/08/18 traZODone HCL [Trazodone HCl] 150 mg PO HS #30 tablet 05/08/18 Atorvastatin Ca [Lipitor] 10 mg PO DAILY #30 tablet 05/09/18 Gabapentin [Neurontin -] 300 mg PO TID #90 capsule 05/09/18 Insulin (Levemir) [Levemir Vial] 16 unit SQ HS #1 units 05/09/18 Insulin Glargine,Hum.rec.anlog [Basaglar Kwikpen U-100] 12 unit SQ HS #1 insuln.pen 05/09/18 Insulin Lispro [Admelog Solostar] 8 unit SQ BIDAC #1 insuln.pen 05/09/18 Insulin Lispro [Humalog Kwikpen U-100] 7 unit SQ TIDCM #1 insuln.pen 05/09/18 Ramipril [Altace] 5 mg PO DAILY #30 capsule 05/09/18 Ranitidine [Zantac -] 150 mg PO BID #60 tablet 05/09/18 Review of Systems Unable to obtain ROS, reason: Uncooperative - Review of Systems Gastrointestinal: reports: Nausea, Vomiting Physical Exam Vital Signs: Vital Signs Temperature 97.8 F 02/14/20 04:17 Pulse Rate 98 H 02/14/20 08:57 Respiratory Rate 18 02/14/20 08:57 Blood Pressure 114/76 02/14/20 08:57 O2 Sat by Pulse Oximetry (%) 100 02/14/20 09:45 Constitutional: Yes: Well Nourished, Anxious Eyes: Yes: Conjunctiva Clear, PERRL HENT: Yes: Atraumatic, Normocephalic Neck: Yes: Supple, Trachea Midline Cardiovascular: Yes: Regular Rate and Rhythm, S1, S2 Respiratory: Yes: Regular, CTA Bilaterally Gastrointestinal: Yes: Normal Bowel Sounds, Soft Renal/: Yes: WNL Extremities: Yes: WNL Edema: No Peripheral Pulses WNL: Yes Neurological: Yes: Other (agitated on arrival, currently calm) ...Motor Strength: WNL Psychiatric: Yes: Other (Agitation) Labs: CBC, BMP 02/14/20 06:50 02/14/20 06:50 Imaging - Results Chest X-ray: Report Reviewed (No acute chest pathology) Problem List - Problems (1) DKA (diabetic ketoacidoses) Code(s): E11.10 - TYPE 2 DIABETES MELLITUS WITH KETOACIDOSIS WITHOUT COMA Qualifiers: Diabetes mellitus type: due to underlying condition Diabetes mellitus complication detail: without coma Qualified Code(s): E08.10 - Diabetes mellitus due to underlying condition with ketoacidosis without coma (2) Hyperglycemia Code(s): R73.9 - HYPERGLYCEMIA, UNSPECIFIED (3) Vaginitis Code(s): N76.0 - ACUTE VAGINITIS Qualifiers: Chronicity: chronic Qualified Code(s): N76.1 - Subacute and chronic vaginitis (4) Alcohol dependence with withdrawal Code(s): F10.239 - ALCOHOL DEPENDENCE WITH WITHDRAWAL, UNSPECIFIED Qualifiers: Complication of substance-induced condition: uncomplicated Qualified Code(s): F10.230 - Alcohol dependence with withdrawal, uncomplicated (5) Urinary frequency Code(s): R35.0 - FREQUENCY OF MICTURITION (6) Mood disorder Code(s): F39 - UNSPECIFIED MOOD [AFFECTIVE] DISORDER Assessment/Plan 50yof with PMHx DMI, unclear cardiac history, ETOH abuse mood disorder p/w n/v found to be in DKA i/s/o medication non compliance +/- infection. Plan: DKA protocol -Start insulin drip at 0.1U/kg/hr- -Titrate insulin drip for BG goal 150-250 -NS IVF @ 250cc -Add D5 when BG<250 -Monitor BMP, AGAP, BHB -Replete K and electrolytes -When tolerating PO start Lantus at home dose. -Zofran or reglan for n/v -Aspirtion precaution -Consult diabetes service -F/u cultures -Consider flagyl IV -Check troponin and ECG -f/u with outpatient cardiology Amanda Mariano, MELINDA CCT 45 mins
[2020-02-14] MEDS ORDERED: DEXTROSE 50%-WATER - 25 GM/50 ML VIAL IVPUSH PRN (11:03)
[2020-02-14] MEDS ORDERED: SODIUM CHLORIDE 1,000 ML IV SCH (11:15)
[2020-02-14] MEDS ORDERED: DEXTROSE 5%-NORMAL SALINE 1,000 ML IV SCH (14:00)
[2020-02-14] MEDS ORDERED: ONDANSETRON 4 MG/2 ML VIAL IVPB ONE (15:12)
[2020-02-14 16:56] LABS: BLOOD UREA NITROGEN 16.9 mg/dL (7-18); CALCIUM 9.4 mg/dL (8.5-10.1); CREATININE 1.3 mg/dL (0.55-1.3); POTASSIUM 4.2 mmol/L (3.5-5.1)
[2020-02-14] MEDS: D5-NS + 20 MEQ KCL - 20 MEQ/1,000 ML INFUS.BAG IV SCH ×2 (20:11→21:32)
[2020-02-14] MEDS ORDERED: METOCLOPRAMIDE HCL INJECTION 10 MG/2 ML VIAL IVPUSH ONE (21:35)
[2020-02-14] MEDS: ACETAMINOPHEN 1000 MG/100 ML VIAL (NON FORMULARY) IVPB PRN (21:40)
[2020-02-14 22:11] LABS: BLOOD UREA NITROGEN 14.2 mg/dL (7-18); CALCIUM 9.2 mg/dL (8.5-10.1); CREATININE 1.2 mg/dL (0.55-1.3); POTASSIUM 3.9 mmol/L (3.5-5.1)
[2020-02-15] MEDS: ACETAMINOPHEN 1000 MG/100 ML VIAL (NON FORMULARY) IVPB PRN (03:54)
[2020-02-15 05:26] LABS: HEMATOCRIT 39.9 % (32.4-45.2); HEMOGLOBIN 13.2 GM/dL (10.7-15.3); MCH 27.8 pg (25.7-33.7); MEAN CELL VOLUME 84.2 fl (80-96); MEAN PLT VOLUME 7.9 fl (7.5-11.1); PLATELET COUNT 211 K/MM3 (134-434); RBC 4.74 M/mm3 (3.60-5.2); RDW 13.9 % (11.6-15.6); WHITE BLOOD COUNT 15.1 K/mm3 (4.0-10.0)
[2020-02-15 05:48] LABS: ALBUMIN 3.4 g/dl (3.4-5.0); BILIRUBIN,TOTAL 0.5 mg/dL (0.2-1); BLOOD UREA NITROGEN 13.8 mg/dL (7-18); CALCIUM 8.3 mg/dL (8.5-10.1); CREATININE 1.2 mg/dL (0.55-1.3); MAGNESIUM 1.8 mg/dL (1.8-2.4); POTASSIUM 3.5 mmol/L (3.5-5.1); TOT PROT 6.7 g/dl (6.4-8.2)
[2020-02-15] MEDS: KCL 10 MEQ IVPB 10 MEQ/100 ML INFUS.BAG IVPB SCH ×2 (07:05→08:36)
--- NOTE | 2020-02-15 08:08 | PN ---
Progress Note (short form) - Note Progress Note: PULM/CCM Patient seen and examined in ICU. Remains on insulin gtt. Denies any abdominal pain, nausea or vomiting over night. AGAP 8 this morning. Vital Signs Period Temp Pulse Resp BP Sys/Malik Pulse Ox Last 24 Hr 98.3 F-100.7 F 73-104 18-27 132-184/62-95 97-100 Intake & Output 02/12/20 02/13/20 02/14/20 02/15/20 23:59 23:59 23:59 23:59 Intake Total 985 2098 Output Total 700 Balance 285 2098 Weight 81.647 kg Constitutional: Well Nourished, Anxious Eyes: Conjunctiva Clear, PERRL HENT: Atraumatic, Normocephalic Neck: Supple, Trachea Midline Cardiovascular: Regular Rate and Rhythm, S1, S2 Respiratory: Regular, CTA Bilaterally Gastrointestinal: Normal Bowel Sounds, Soft Renal/: WNL Extremities: WNL Edema: No Peripheral Pulses: Yes Neurological: Alert, oriented CBC, BMP 02/15/20 05:18 02/15/20 05:18 Active Medications Acetaminophen (Ofirmev Injection -) 1,000 mg IVPB Q6H PRN PRN Reason: PAIN LEVEL 1 - 3 Stop: 02/15/20 21:17 Last Admin: 02/15/20 03:54 Dose: 1,000 mg Documented by: Dextrose (D50w (Vial) -) 25 gm IVPUSH PRN PRN PRN Reason: HYPOGLYCEMIA Dextrose/Sodium Chloride (Dextrose 5%-Normal Saline+20 Meq Kcl -) 20 meq in 1,000 mls @ 125 mls/hr IV ASDIR [facility] [place] Last Admin: 02/14/20 21:32 Dose: 150 mls/hr Documented by: Insulin Aspart (Novolog Vial Sliding Scale -) 1 vial SQ [facility]; Protocol Insulin Detemir (Levemir Vial) 28 units SQ [facility] Microbiology 02/14/20 05:19 Urine - Urine Clean Catch Urine Culture - Preliminary ASSESSMENT/PLAN 50yof with PMHx DMI, unclear cardiac history, ETOH abuse mood disorder p/w n/v found to be in DKA i/s/o medication non compliance. DKA resolved, AGAP closed, HDS, on RA -D/C insulin drip -Will start insulin coverage scale [facility] -Levemir 20 units x 1 now, will start home dose Levemir of 28 units HS tomorrow -Resume diabetic diet as tolerated -Trend and replete electrolytes -Aspiration precaution -F/u cultures Dispo: If blood sugars stable, can transfer to med-surg Susie Jorgensen, ACNP [id number]
[2020-02-15] MEDS ORDERED: INSULIN (LEVEMIR) 100 UNITS/ML UNITS SQ ONE (10:43)
[2020-02-15] MEDS: INSULIN SLIDING SCALE (NOVOLOG) 1 VIAL SQ SCH ×4 (12:09→21:17)
--- NOTE | 2020-02-15 17:30 | EKG ---
Test Reason : Blood Pressure : / mmHG Vent. Rate : 096 BPM Atrial Rate : 096 BPM P-R Int : 120 ms QRS Dur : 078 ms QT Int : 356 ms P-R-T Axes : 073 030 059 degrees QTc Int : 449 ms NORMAL SINUS RHYTHM BIATRIAL ENLARGEMENT ABNORMAL ECG WHEN COMPARED WITH ECG OF 22-MAR-2018 20:41, NO SIGNIFICANT CHANGE WAS FOUND Confirmed by MD Kelley, Dane ([id number]) on 02/15/2020 5:30:32 PM Referred By: Confirmed By:Dane Benson MD
[2020-02-16] MEDS: INSULIN SLIDING SCALE (NOVOLOG) 1 VIAL SQ SCH ×4 (06:26→21:37)
[2020-02-16 10:48] LABS: BASO % 0.7 % (0-2.0); EOS % 1.6 % (0-4.5); HEMATOCRIT 40.6 % (32.4-45.2); LYMPH % 36.9 % (8-40); MCH 27.3 pg (25.7-33.7); MCHC 32.1 g/dl (32.0-36.0); MEAN CELL VOLUME 85.1 fl (80-96); MEAN PLT VOLUME 8.6 fl (7.5-11.1); MONO % 8.7 % (3.8-10.2); NEUT % 52.1 % (42.8-82.8); PLATELET COUNT 175 K/MM3 (134-434); RBC 4.77 M/mm3 (3.60-5.2); RDW 14.2 % (11.6-15.6); WHITE BLOOD COUNT 6.8 K/mm3 (4.0-10.0)
[2020-02-16 11:25] LABS: BILIRUBIN,TOTAL 0.9 mg/dL (0.2-1); BLOOD UREA NITROGEN 10.1 mg/dL (7-18); CALCIUM 8.7 mg/dL (8.5-10.1); CREATININE 0.8 mg/dL (0.55-1.3); MAGNESIUM 1.8 mg/dL (1.8-2.4); PHOSPHOROUS 2.5 mg/dL (2.5-4.9); TOT PROT 6.2 g/dl (6.4-8.2)
[2020-02-16] MEDS: GABAPENTIN 300 MG CAPSULE PO SCH ×2 (13:02→21:35)
--- NOTE | 2020-02-16 15:34 | PN ---
Physical Exam: SUBJECTIVE: Patient seen and examined. Appears comfortable and able to speak in full sentences. No new complaints. No acute overnight events. Denies any associate fevers, chills, chest pain, SOB, nausea, vomiting, diarrhea, constipation. OBJECTIVE: Vital Signs Period Temp Pulse Resp BP Sys/Malik Pulse Ox Last 24 Hr 98 F-98.5 F 70-84 18-20 142-167/75-89 96-99 GENERAL: A&Ox3, NAD NECK: No JVD LUNGS: Diminished breath sounds at the bases, No wheezes, no crackles HEART: RRR S1 S2 ABDOMEN: Soft, nontender, not distended, + bowel sounds EXTREMITIES: No peripheral edema. NEUROLOGICAL: Cranial nerves II-XII intact. SKIN: Warm, dry Laboratory Results - last 24 hr 02/15/20 02/15/20 02/15/20 16:21 18:39 21:06 WBC RBC Hgb Hct MCV MCH MCHC RDW Plt Count MPV Absolute Neuts (auto) Neutrophils % Lymphocytes % Monocytes % Eosinophils % Basophils % Nucleated RBC % Sodium Potassium Chloride Carbon Dioxide Anion Gap BUN Creatinine Est GFR (CKD-EPI)AfAm Est GFR (CKD-EPI)NonAf POC Glucometer 328 252 109 Random Glucose Calcium Phosphorus Magnesium Total Bilirubin AST ALT Alkaline Phosphatase Total Protein Albumin 02/16/20 02/16/20 02/16/20 06:17 10:00 10:00 WBC 6.8 RBC 4.77 Hgb 13.0 Hct 40.6 MCV 85.1 MCH 27.3 MCHC 32.1 RDW 14.2 Plt Count 175 MPV 8.6 Absolute Neuts (auto) 3.5 Neutrophils % 52.1 D Lymphocytes % 36.9 D Monocytes % 8.7 D Eosinophils % 1.6 D Basophils % 0.7 Nucleated RBC % 0 Sodium 137 Potassium 4.0 Chloride 106 Carbon Dioxide 24 Anion Gap 7 L BUN 10.1 Creatinine 0.8 Est GFR (CKD-EPI)AfAm 101.04 Est GFR (CKD-EPI)NonAf 87.18 POC Glucometer 274 Random Glucose 327 H Calcium 8.7 Phosphorus 2.5 Magnesium 1.8 Total Bilirubin 0.9 AST 23 ALT 15 Alkaline Phosphatase 74 Total Protein 6.2 L Albumin 3.0 L 02/16/20 11:32 WBC RBC Hgb Hct MCV MCH MCHC RDW Plt Count MPV Absolute Neuts (auto) Neutrophils % Lymphocytes % Monocytes % Eosinophils % Basophils % Nucleated RBC % Sodium Potassium Chloride Carbon Dioxide Anion Gap BUN Creatinine Est GFR (CKD-EPI)AfAm Est GFR (CKD-EPI)NonAf POC Glucometer 322 Random Glucose Calcium Phosphorus Magnesium Total Bilirubin AST ALT Alkaline Phosphatase Total Protein Albumin Active Medications Generic Name Dose Route Start Last Admin Trade Name Freq PRN Reason Stop Dose Admin Gabapentin 600 mg 02/16/20 14:00 02/16/20 13:02 Neurontin - PO 600 mg TID LICO Administration Insulin Aspart 1 vial 02/16/20 07:00 02/16/20 12:22 Novolog Vial Sliding Scale - SQ 8 units ACHS LICO Administration Protocol Insulin Detemir 28 units 02/16/20 22:00 Levemir Vial SQ HS LICO ASSESSMENT/PLAN: 50 y/o F PMHx DM, Unclear Cardiac hx (possible [place] and Stroke with residual Speech deficit and implantable security monitor), ETOH mood disorder, Trichomoniasis presented w/ hyperglycemia in the setting of nonadherences to home insulin regimen for the 3 days prior to admission, associated with nausea, vomiting, epigastric pain, and was admitted to ICU for DKA. Patient completed insulin drip protocol with resolution of her Anion Gap, Her diet was advanced and she was transferred to med-surg. #DKA -In the setting of noncomplaince with home dose DM regimen -Completed Insulin GTT as anion gap closed; Started on Levemir 28u HS -Continue ISS; Can resume home dose lantus 6u premeals upon DC as we do not have Lantus in formulary -Continue BGMs ACHS #?Diabetic Neuropathy -Continue home does Gabapentin #Unclear Cardiac hx (possible [place] and Stroke with residual Speech deficit and implantable security monitor) -Normotensive during admission with slight elevations overnight -Resume home dose ACEi #ETOH mood disorder -Stable, Monitor for withdrawal #Trichomoniasis -Follow serologies #Leukocytosis -Likely reactive to DKA, Resolved -Urine cx grew normal tawny, Follow trichomonas serology #FEN -No standing fluids -Replete lytes PRN -Diabetic Diet #PPx -DVT: Lovenox 40mg daily Dispo: Med-surg Visit type - Emergency Visit Emergency Visit: Yes ED Registration Date: 02/14/20 Care time: The patient presented to the Emergency Department on the above date and was hospitalized for further evaluation of their emergent condition. - New Patient This patient is new to me today: Yes Date on this admission: 02/16/20 - Critical Care Critical Care patient: No - Discharge Referral Referred to [facility] Med P.C.: No ATTENDING PHYSICIAN STATEMENT I saw and evaluated the patient. I reviewed the resident's note and discussed the case with the resident. I agree with the resident's findings and plan as documented. SUBJECTIVE: OBJECTIVE: ASSESSMENT AND PLAN:
--- NOTE | 2020-02-16 15:51 | PN ---
Teaching Attending Note Name of Resident: Piper Tracy ATTENDING PHYSICIAN STATEMENT I saw and evaluated the patient. I reviewed the resident's note and discussed the case with the resident. I agree with the resident's findings and plan as documented. SUBJECTIVE: Patient feels well this morning has no complaints. Tolerating PO intake OBJECTIVE: Vital Signs Period Temp Pulse Resp BP Sys/Malik Pulse Ox Last 24 Hr 98 F-98.5 F 70-84 18-20 139-167/75-89 95-99 GENERAL: Awake, alert, and fully oriented, in no acute distress. HEAD: Normal with no signs of trauma. EYES: Pupils equal, round and reactive to light, extraocular movements intact, sclera anicteric, conjunctiva clear. No lid lag. EARS, NOSE, THROAT: Ears normal, nares patent, oropharynx clear without exudates. Moist mucous membranes. NECK: Normal range of motion, supple without lymphadenopathy, JVD, or masses. LUNGS: Breath sounds equal, clear to auscultation bilaterally. No wheezes, and no crackles. No accessory muscle use. HEART: Regular rate and rhythm, normal S1 and S2 without murmur, rub or gallop. ABDOMEN: Soft, nontender, not distended, normoactive bowel sounds, no guarding, no rebound, no masses. No hepatomegaly or splenomegaly. MUSCULOSKELETAL: Normal range of motion at all joints. No bony deformities or tenderness. No CVA tenderness. UPPER EXTREMITIES: 2+ pulses, warm, well-perfused. No cyanosis. No clubbing. Cap refill <2 seconds. No peripheral edema. LOWER EXTREMITIES: 2+ pulses, warm, well-perfused. No calf tenderness. No peripheral edema. NEUROLOGICAL: Cranial nerves II-XII intact. Normal speech. Normal gait. PSYCHIATRIC: Cooperative. Good eye contact. Appropriate mood and affect. SKIN: Warm, dry, normal turgor, no rashes or lesions noted. ASSESSMENT AND PLAN: 50 y/o F with PMH of DM, ETOH abuse, Trichomonas infection who presents with DKA in setting of medication non-compliance. DKA: Now resolved Anion Gap closed Patient off insulin gtt At home patient reports taking 28 units of lantus and 6 units of premeal insulin Restart premeal insulin at this time Patient states that she does not have any difficulty obtaining/affording her medications however states that she just did not have access to it. Continue to monitor BG overnight, patient likely can be discharged in next 24 hours. continue to monitor FSG, ISS Hx of Trichomonas infection results pending at this time Rest of plan as per resident note
[2020-02-16] MEDS ORDERED: INSULIN (NOVOLOG) ASPART 100 UNITS/ML 10ML VIAL ONE (21:23)
[2020-02-16] MEDS ORDERED: INSULIN (LEVEMIR) 100 UNITS/ML UNITS SQ SCH ×2 (22:00)
[2020-02-17] MEDS: GABAPENTIN 300 MG CAPSULE PO SCH ×2 (06:23→14:19)
[2020-02-17] MEDS: INSULIN SLIDING SCALE (NOVOLOG) 1 VIAL SQ SCH ×3 (06:24→17:00)
[2020-02-17] MEDS ORDERED: RAMIPRIL 5 MG CAPSULE (FP) PO SCH (10:00)
[2020-02-17 12:09] LABS: CHOLESTEROL 169 mg/dL (50-200); HDL CHOLESTEROL 76 mg/dL (40-60); LDL CHOLESTEROL (ONLY SJRH) 76 mg/dL (5-100); TRIGLYCERIDES 103 mg/dL (0-150)
[2020-02-17 12:14] LABS: BILIRUBIN,TOTAL 0.4 mg/dL (0.2-1); BLOOD UREA NITROGEN 14.3 mg/dL (7-18); CALCIUM 8.6 mg/dL (8.5-10.1); CREATININE 0.6 mg/dL (0.55-1.3); TOT PROT 6.2 g/dl (6.4-8.2)
[2020-02-17 15:35] VITALS: BP 128/55; PULSE 71; TEMP 98.4
[2020-02-17 15:55] LABS: BASO % 0.7 % (0-2.0); EOS % 2.4 % (0-4.5); HEMATOCRIT 40.3 % (32.4-45.2); HEMOGLOBIN 13.2 GM/dL (10.7-15.3); LYMPH % 43.3 % (8-40); MCH 28.1 pg (25.7-33.7); MCHC 32.8 g/dl (32.0-36.0); MEAN CELL VOLUME 85.8 fl (80-96); MEAN PLT VOLUME 8.9 fl (7.5-11.1); MONO % 6.5 % (3.8-10.2); NEUT % 47.1 % (42.8-82.8); PLATELET COUNT 157 K/MM3 (134-434); RBC 4.69 M/mm3 (3.60-5.2); RDW 13.9 % (11.6-15.6); WHITE BLOOD COUNT 6.3 K/mm3 (4.0-10.0)
--- NOTE | 2020-02-17 16:59 | DS ---
Physical Exam: SUBJECTIVE: Patient seen and examined OBJECTIVE: Vital Signs Temperature 98.4 F 02/17/20 14:00 Pulse Rate 71 02/17/20 14:00 Respiratory Rate 18 02/17/20 14:00 Blood Pressure 128/55 L 02/17/20 14:00 O2 Sat by Pulse Oximetry (%) 96 02/17/20 14:00 PHYSICAL EXAM GENERAL: The patient is awake, alert, and fully oriented, in no acute distress. NECK: full range of motion, supple. LUNGS: Breath sounds equal, clear to auscultation bilaterally HEART: Regular rate and rhythm, S1, S2 ABDOMEN: Soft, nontender, nondistended, normoactive bowel sounds EXTREMITIES: 2+ pulses, warm, well-perfused, no edema. NEUROLOGICAL: Cranial nerves II through XII grossly intact. Normal speech PSYCH: Normal mood, normal affect. SKIN: Warm, dry, normal turgor LABS Laboratory Results - last 24 hr 02/16/20 02/17/20 02/17/20 21:34 06:22 10:20 WBC RBC Hgb Hct MCV MCH MCHC RDW Plt Count MPV Absolute Neuts (auto) Neutrophils % Lymphocytes % Monocytes % Eosinophils % Basophils % Nucleated RBC % Sodium 140 Potassium 4.0 Chloride 106 Carbon Dioxide 26 Anion Gap 9 BUN 14.3 Creatinine 0.6 Est GFR (CKD-EPI)AfAm 124.92 Est GFR (CKD-EPI)NonAf 107.78 POC Glucometer 297 236 Random Glucose 198 H Hemoglobin A1c % Calcium 8.6 Total Bilirubin 0.4 AST 20 ALT 18 Alkaline Phosphatase 81 Total Protein 6.2 L Albumin 3.0 L Triglycerides Cholesterol Total LDL Cholesterol HDL Cholesterol TSH 0.79 02/17/20 02/17/20 02/17/20 10:20 10:20 12:11 WBC RBC Hgb Hct MCV MCH MCHC RDW Plt Count MPV Absolute Neuts (auto) Neutrophils % Lymphocytes % Monocytes % Eosinophils % Basophils % Nucleated RBC % Sodium Potassium Chloride Carbon Dioxide Anion Gap BUN Creatinine Est GFR (CKD-EPI)AfAm Est GFR (CKD-EPI)NonAf POC Glucometer 236 Random Glucose Hemoglobin A1c % 9.1 H Calcium Total Bilirubin AST ALT Alkaline Phosphatase Total Protein Albumin Triglycerides 103 Cholesterol 169 Total LDL Cholesterol 76 HDL Cholesterol 76 H TSH 02/17/20 15:00 WBC 6.3 RBC 4.69 Hgb 13.2 Hct 40.3 MCV 85.8 MCH 28.1 MCHC 32.8 RDW 13.9 Plt Count 157 MPV 8.9 Absolute Neuts (auto) 3.0 Neutrophils % 47.1 Lymphocytes % 43.3 H Monocytes % 6.5 Eosinophils % 2.4 Basophils % 0.7 Nucleated RBC % 0 Sodium Potassium Chloride Carbon Dioxide Anion Gap BUN Creatinine Est GFR (CKD-EPI)AfAm Est GFR (CKD-EPI)NonAf POC Glucometer Random Glucose Hemoglobin A1c % Calcium Total Bilirubin AST ALT Alkaline Phosphatase Total Protein Albumin Triglycerides Cholesterol Total LDL Cholesterol HDL Cholesterol TSH HOSPITAL COURSE: Date of Admission:02/14/20 Date of Discharge: 02/17/20 Patient is a 50 y/o F PMHx DM, Unclear Cardiac hx (possible [place] and Stroke with residual Speech deficit and implantable poultry hanger), ETOH mood disorder, Trichomoniasis presented w/ hyperglycemia in the setting of nonadherence to home insulin regimen for the 3 days prior to admission, associated with nausea, vomiting, epigastric pain, and was admitted to ICU for DKA. Patient completed insulin drip protocol with resolution of her Anion Gap. Her diet was advanced and she was transferred to med-surg. Patient continued to improved throughout her hospital stay. Endocrinology was consulted. Patient was discharged with instructions for her insulin regimen and was instructed to follow up with endo and PCP in a week. Minutes to complete discharge: 36 Discharge Summary Problems reviewed: Yes Reason For Visit: DIABETIC KETOACIDOSIS Current Active Problems DKA (diabetic ketoacidoses) (Acute) Hyperglycemia (Acute) Vaginitis (Acute) Condition: Improved - Instructions Diet, Activity, Other Instructions: Your visit You were admitted to the hospital because you were found to have elevation of your blood sugar, and had a complication of your diabetes, called diabetic ketoacidosis. You received Insulin and your condition improved. It is very important to take your Insulin regularly as instructed. Medications Please take your home medications as prescribed. 1. Insulin Lantus 28u once in the morning 2. Insulin Humalog three times a day with meals. Take it as instructed below: Blood sugar Insulin Humalog 200-250 4 units 251-300 6 units 301-350 8 units >350 10 units Please continue your other home medications as prescribed. Follow up Please follow up with your primary care doctor in 1-2 weeks. please follow up with the doorperson or luggage porter (Dr. Goldberg). You have been scheduled to visit his office next Sunday, Aug 3, at 9am. Additional info Please call 911 or go to the ED if with any worsening fevers, chills, headache, dizziness, chest pain, shortness of breath, belly pain, diarrhea, or any new concerns noted. Referrals: Edwin Goldberg MD [Staff Physician] - 02/23/20 9:00 am Disposition: HOME - Home Medications Comprehensive Discharge Medication List: Ambulatory Orders Citalopram Hydrobromide [Celexa -] 40 mg PO DAILY #60 tablet 05/08/18 Quetiapine Fumarate [Seroquel -] 100 mg PO HS #30 tablet 05/08/18 traZODone HCL [Desyrel -] 150 mg PO HS #60 tablet 05/08/18 Ranitidine [Zantac -] 150 mg PO BID #60 tablet 05/09/18 Aspirin [ASA -] 81 mg PO DAILY #30 tab.chew 02/17/20 Atorvastatin Ca [Lipitor] 10 mg PO DAILY #30 tablet 02/17/20 Gabapentin [Neurontin -] 600 mg PO TID #30 capsule 02/17/20 Insulin Glargine,Hum.rec.anlog [Basaglar Kwikpen U-100] 28 unit SQ DAILY #2 insuln.pen 02/17/20 Insulin Lispro [Admelog Solostar] See Protocol SQ TIDCM #2 insuln.pen 02/17/20 Ramipril [Altace] 5 mg PO DAILY #30 capsule 02/17/20 This patient is new to me today: Yes Date on this admission: 02/17/20 Emergency Visit: Yes ED Registration Date: 02/14/20 Care time: The patient presented to the Emergency Department on the above date and was hospitalized for further evaluation of their emergent condition. Critical Care patient: No - Discharge Referral Referred to [facility] Med P.C.: No ATTENDING PHYSICIAN STATEMENT I saw and evaluated the patient. I reviewed the resident's note and discussed the case with the resident. I agree with the resident's findings and plan as documented. SUBJECTIVE: OBJECTIVE: ASSESSMENT AND PLAN:
--- NOTE | 2020-02-17 17:21 | PN ---
Physical Exam: SUBJECTIVE: Patient seen and examined at bedside, admitted for DKA, now resolved, needs Endocrine follow up and T2DM management/insulin instruction. VSS. OBJECTIVE: Vital Signs Period Temp Pulse Resp BP Sys/Malik Pulse Ox Last 24 Hr 97.6 F-98.8 F 65-76 18-20 128-148/55-98 96-100 GENERAL: The patient is awake, alert, and fully oriented, in no acute distress. HEAD: Normal with no signs of trauma. EYES: PERRL, extraocular movements intact, sclera anicteric, conjunctiva clear. No ptosis. ENT: Ears normal, nares patent, oropharynx clear without exudates, moist mucous membranes. NECK: Trachea midline, full range of motion, supple. LUNGS: Breath sounds equal, clear to auscultation bilaterally, no wheezes, no crackles, no accessory muscle use. HEART: Regular rate and rhythm, S1, S2 without murmur, rub or gallop. ABDOMEN: Soft, nontender, nondistended, normoactive bowel sounds, no guarding, no rebound, no hepatosplenomegaly, no masses. EXTREMITIES: 2+ pulses, warm, well-perfused, no edema. NEUROLOGICAL: Cranial nerves II through XII grossly intact. Normal speech, gait not observed. PSYCH: Normal mood, normal affect. SKIN: Warm, dry, normal turgor, no rashes or lesions noted Laboratory Results - last 24 hr 02/16/20 02/17/20 02/17/20 21:34 06:22 10:20 WBC RBC Hgb Hct MCV MCH MCHC RDW Plt Count MPV Absolute Neuts (auto) Neutrophils % Lymphocytes % Monocytes % Eosinophils % Basophils % Nucleated RBC % Sodium 140 Potassium 4.0 Chloride 106 Carbon Dioxide 26 Anion Gap 9 BUN 14.3 Creatinine 0.6 Est GFR (CKD-EPI)AfAm 124.92 Est GFR (CKD-EPI)NonAf 107.78 POC Glucometer 297 236 Random Glucose 198 H Hemoglobin A1c % Calcium 8.6 Total Bilirubin 0.4 AST 20 ALT 18 Alkaline Phosphatase 81 Total Protein 6.2 L Albumin 3.0 L Triglycerides Cholesterol Total LDL Cholesterol HDL Cholesterol TSH 0.79 02/17/20 02/17/20 02/17/20 10:20 10:20 12:11 WBC RBC Hgb Hct MCV MCH MCHC RDW Plt Count MPV Absolute Neuts (auto) Neutrophils % Lymphocytes % Monocytes % Eosinophils % Basophils % Nucleated RBC % Sodium Potassium Chloride Carbon Dioxide Anion Gap BUN Creatinine Est GFR (CKD-EPI)AfAm Est GFR (CKD-EPI)NonAf POC Glucometer 236 Random Glucose Hemoglobin A1c % 9.1 H Calcium Total Bilirubin AST ALT Alkaline Phosphatase Total Protein Albumin Triglycerides 103 Cholesterol 169 Total LDL Cholesterol 76 HDL Cholesterol 76 H TSH 02/17/20 15:00 WBC 6.3 RBC 4.69 Hgb 13.2 Hct 40.3 MCV 85.8 MCH 28.1 MCHC 32.8 RDW 13.9 Plt Count 157 MPV 8.9 Absolute Neuts (auto) 3.0 Neutrophils % 47.1 Lymphocytes % 43.3 H Monocytes % 6.5 Eosinophils % 2.4 Basophils % 0.7 Nucleated RBC % 0 Sodium Potassium Chloride Carbon Dioxide Anion Gap BUN Creatinine Est GFR (CKD-EPI)AfAm Est GFR (CKD-EPI)NonAf POC Glucometer Random Glucose Hemoglobin A1c % Calcium Total Bilirubin AST ALT Alkaline Phosphatase Total Protein Albumin Triglycerides Cholesterol Total LDL Cholesterol HDL Cholesterol TSH Active Medications Generic Name Dose Route Start Last Admin Trade Name Curtq PRN Reason Stop Dose Admin Gabapentin 600 mg 02/16/20 14:00 02/17/20 14:19 Neurontin - PO 600 mg TID LICO Administration Insulin Aspart 1 vial 02/16/20 07:00 02/17/20 12:18 Novolog Vial Sliding Scale - SQ 4 units ACHS LICO Administration Protocol Insulin Detemir 28 units 02/16/20 22:00 02/16/20 21:38 Levemir Vial SQ 28 units HS LICO Administration Ramipril 5 mg 02/17/20 10:00 02/17/20 09:39 Altace - PO 5 mg DAILY LICO Administration Home Medications Medication Instructions Recorded Citalopram Hydrobromide [Celexa -] 40 mg PO DAILY #60 tablet 05/08/18 Quetiapine Fumarate [Seroquel -] 100 mg PO HS #30 tablet 05/08/18 traZODone HCL [Desyrel -] 150 mg PO HS #60 tablet 05/08/18 Ranitidine [Zantac -] 150 mg PO BID #60 tablet 05/09/18 Aspirin [ASA -] 81 mg PO DAILY #30 tab.chew 02/17/20 Atorvastatin Ca [Lipitor] 10 mg PO DAILY #30 tablet 02/17/20 Gabapentin [Neurontin -] 600 mg PO TID #30 capsule 02/17/20 Insulin Glargine,Hum.rec.anlog 28 unit SQ DAILY #2 insuln.pen 02/17/20 [Basaglar Kwikpen U-100] Insulin Lispro [Admelog Solostar] See Protocol SQ TIDCM #2 insuln.pen 02/17/20 Ramipril [Altace] 5 mg PO DAILY #30 capsule 02/17/20 ASSESSMENT/PLAN: 50 F T1DM with DKA HTN HLD Bipolar depression Plan: Cont. Lantus @ 28u switch to AM dosing to increase compliance and watch for hypoglycemic sx Supplement w/ Humalog 6-10u TID premeals Reinforce insulin compliance Supplement ASA/statin A1c noted Endocrine referral Dr. Goldberg [facility] with follow up in Endo clinic and PCP Visit type - Emergency Visit Emergency Visit: Yes ED Registration Date: 02/14/20 Care time: The patient presented to the Emergency Department on the above date and was hospitalized for further evaluation of their emergent condition. - New Patient This patient is new to me today: Yes Date on this admission: 02/17/20 - Critical Care Critical Care patient: No - Discharge Referral Referred to [facility] Med P.C.: No
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
== END 2020-02-17 17:03 | disposition home or self-care (01) | DRG 420 ==
LOC: JER 04:15 → JERBED 07:53 → JICU 09:51 → J5S 02-15 22:28
PROVIDERS: ADMIT Internal Medicine Pulmonary Disease
DX: E10.10 Type 1 diabetes mellitus with ketoacidosis without coma (principal); A59.01 Trichomonal vulvovaginitis; R11.10 Vomiting, unspecified; F31.9 Bipolar disorder, unspecified; F10.239 Alcohol dependence with withdrawal, unspecified; E10.40 Type 1 diabetes mellitus with diabetic neuropathy, unspecified; N39.0 Urinary tract infection, site not specified
CPT/HCPCS: 36415; 71045-TC-FY; 80048; 80053; 80061; 81003; 82010; 82803; 82962; 83036; 83690; 83721; 83735; 84100; 84443; 84484; 84703; 85025; 85027; 86337; 86341; 87086; 87491; 87591; 87661; 93005; 93010; 99285-25; J0131; U0003

== ENCOUNTER 2020-04-23 16:10 | Inpatient (IN) | payer OTHER ==
--- NOTE | 2020-04-23 17:08 | PDOC ---
History of Present Illness - General Chief Complaint: Blood Sugar Problem Stated Complaint: HIGH BLOOD SUGAR Time Seen by Provider: 04/23/20 16:49 History Source: Patient, Old Records Exam Limitations: No Limitations - History of Present Illness Initial Comments: 04/23/20 17:07 Jordan Rincon is a 50F with PMH OH, CVA x3, IDDM, HTN, HLD, presenting with hyperglycemia and abdominal pain. Takes 20U Lantin at night with PRN insulin post-prandial with meals. PMD Dr. Tamayo. Last two days has not had any insulin, ran out. Today reports blood glucose in 400s without insulin, also having intermittent abdominal pain consistent with her prior episodes of DKA, called EMS to bring her to hospital for insulin and DKA evaluation. Feels very thirsty, no nausea or vomiting, no diarrhea, no urinary burning or frequency. Has slurred speech at baseline 2/2 multiple CVA but no motor weakness. Able to give entire PMH. NKDA On ramipril, gabapentin, vitamins, folic acid Denies alcohol/drugs/tobacco Past History - Medical History Allergies/Adverse Reactions: Allergies Allergy/AdvReac Type Severity Reaction Status Date / Time No Known Allergies Allergy Verified 04/23/20 16:36 Home Medications: Ambulatory Orders Citalopram Hydrobromide [Celexa -] 40 mg PO DAILY #60 tablet 05/08/18 Quetiapine Fumarate [Seroquel -] 100 mg PO HS #30 tablet 05/08/18 traZODone HCL [Desyrel -] 150 mg PO HS #60 tablet 05/08/18 Ranitidine [Zantac -] 150 mg PO BID #60 tablet 05/09/18 Aspirin [ASA -] 81 mg PO DAILY #30 tab.chew 02/17/20 Atorvastatin Ca [Lipitor] 10 mg PO DAILY #30 tablet 02/17/20 Insulin Lispro [Admelog Solostar] See Protocol SQ TIDCM #2 insuln.pen 02/17/20 Ramipril [Altace] 5 mg PO DAILY #30 capsule 02/17/20 Folic Acid 1 mg PO DAILY #30 tablet 02/18/20 Gabapentin 600 mg PO TID #90 tablet 02/18/20 Thiamine HCl [B-1] 100 mg PO DAILY #30 tablet 02/18/20 Insulin Glargine,Hum.rec.anlog [Lantus] 20 unit SQ HS 04/23/20 Anemia: No Asthma: No Cancer: No Cardiac Disorders: No CVA: No COPD: No CHF: No Dementia: No Diabetes: Yes GI Disorders: Yes (GERD) Disorders: No HTN: Yes Hypercholesterolemia: Yes (CRESTOR) Kidney Stones: No Liver Disease: No Seizures: No Thyroid Disease: No - Surgical History Abdominal Surgery: No Appendectomy: No Cardiac Surgery: No Cholecystectomy: No Lung Surgery: No Neurologic Surgery: No Orthopedic Surgery: No - Reproductive History Is Patient Now?: No PID: No - Immunization History Immunization Up to Date: Yes - Psycho-Social/Smoking History Smoking History: Never smoked Have you smoked in the past 12 months: No Number of Cigarettes Smoked Daily: 10 Cigars Per Day: 0 Information on smoking cessation initiated: No 'Breaking Loose' booklet given: 05/07/18 - Substance Abuse Hx (Audit-C & DAST Scrn) How often the patient has a drink containing alcohol: Never Score: In Men: 4 or > Positive; In Women: 3 or > Positive: 0 Screen Result (Pos requires Nsg. Audit-10AR): Negative In the last yr the pt used illegal drug/Rx for NonMed reason: No Score: Yes response is considered Positive: 0 Screen Result (Positive result requires Nsg. DAST-10): Negative Review of Systems - Review of Systems Able to Perform ROS?: Yes Constitutional: No: Chills, Fever HEENTM: No: Symptoms Reported Respiratory: No: Cough, Shortness of Breath, SOB with Exertion, SOB at Rest, Wheezing Cardiac (ROS): No: Chest Pain, Edema, Irregular Heart Rate, Lightheadedness, Palpitations ABD/GI: Yes: Abdominal cramping. No: Nausea, Poor Appetite, Poor Fluid Intake, Vomiting : No: Symptoms Reported Musculoskeletal: No: Symptoms Reported Integumentary: No: Symptoms Reported Neurological: No: Headache, Numbness, Paresthesia, Tingling, Tremors, Weakness, Ataxia, Dizziness Endocrine: No: Symptoms Reported Hematologic/Lymphatic: No: Symptoms Reported All Other Systems: Reviewed and Negative *Physical Exam - Vital Signs Last Vital Signs Temp Pulse Resp BP Pulse Ox 97.4 F L 91 H 17 145/89 98 04/23/20 16:29 04/23/20 16:29 04/23/20 16:29 04/23/20 16:29 04/23/20 16:29 - Physical Exam General Appearance: Yes: Nourished, Appropriately Dressed, Obese, Other (sitting up in bed eating ice, slurred speech). No: Apparent Distress HEENT: positive: EOMI, TIERRA, Normal Voice, Symmetrical, Pharynx Normal. negative: Scleral Icterus (R), Scleral Icterus (L), Pharyngeal Erythema, Tonsil lar Exudate, Tonsillar Erythema Neck: positive: Trachea midline, Normal Thyroid, Supple. negative: Tender, Rigid, Lymphadenopathy (R), Lymphadenopathy (L), Tender lateral, Tender midline Respiratory/Chest: positive: Lungs Clear, Normal Breath Sounds. negative: Chest Tender, Respiratory Distress, Accessory Muscle Use, Crackles, Rales, Rhonchi, Stridor, Wheezing Cardiovascular: positive: Regular Rhythm, Tachycardia. negative: Murmur Gastrointestinal/Abdominal: positive: Normal Bowel Sounds, Flat, Soft. negative: Tender, Organomegaly, Pulsatile Mass, Guarding, Rebound Musculoskeletal: positive: Normal Inspection. negative: CVA Tenderness, Decreased Range of Motion, Vertebral Tenderness Extremity: positive: Normal Capillary Refill, Normal Inspection, Normal Range of Motion, Pelvis Stable. negative: Tender, Pedal Edema, Swelling, Calf Te nderness Integumentary: positive: Normal Color, Dry, Warm Neurologic: positive: school commissioner II-XII NML intact, Fully Oriented, Alert, Normal Mood/Affect, Normal Response, Motor Strength 5/5, Finger to Nose (normal). negative: Sensory Deficit, Confused ED Treatment Course - LABORATORY CBC & Chemistry Diagram: 04/23/20 17:35 04/23/20 17:35 - ADDITIONAL ORDERS Additional order review: Laboratory Results 04/23/20 16:24 POC Glucometer 451 04/23/20 16:24 POC Glucometer 451 Medical Decision Making - Medical Decision Making 04/23/20 17:08 Patient presents with hyperglycemia and intermittent epigastric abdominal pain in the setting of not having any insulin, concerning for DKA. Getting DKA labs and ECG. Will treat with insulin once labs return, giving IVF now. 04/23/20 18:41 Labs notable for: - WBC 12 - Hgb 16.3 - VBG pH 7.259 - Na 131 - K 5.3 - glucose 446 - ketones >46 Labs consistent with DKA. Giving IVF, starting on 0.1U/kg insulin bolus + 0.1U/kg/hr drip Getting larger bore IV via US Will need ICU admit for DKA 04/23/20 18:53 Discussed case with ICU, accepts for ICU given insulin drip, would like UA and ECG. 04/23/20 18:56 ECG NSR with HR 99, QTc 449, no STONEY/D or TWI. Discharge - Discharge Information Problems reviewed: Yes Clinical Impression/Diagnosis: Insulin dependent diabetes mellitus, Hyperglycemia DKA (diabetic ketoacidoses) Qualifiers: Diabetes mellitus type: other specified (including PAU) Diabetes mellitus complication detail: without coma Qualified Code(s): E13.10 - Other specified diabetes mellitus with ketoacidosis without coma Condition: Guarded - Admission Yes - Follow up/Referral Referrals: Navarro Tamayo MD [Primary Care Provider] - - Patient Discharge Instructions - Post Discharge Activity
[2020-04-23] MEDS ORDERED: SODIUM CHLORIDE 0.9% 500 ML INFUS.BAG IV ONE (17:27)
[2020-04-23] MEDS ORDERED: ACETAMINOPHEN 1000 MG/100 ML VIAL (NON FORMULARY) IVPB ONE (17:43)
[2020-04-23] MEDS ORDERED: ONDANSETRON 4 MG/2 ML VIAL IVPUSH ONE (17:43)
[2020-04-23] MEDS ORDERED: ACETAMINOPHEN INJECTION 100 ML IVPB ONE (17:44)
[2020-04-23 17:48] LABS: BASO % 0.9 % (0-2.0); EOS % 0.4 % (0-4.5); HEMOGLOBIN 16.3 GM/dL (10.7-15.3); LYMPH % 22.7 % (8-40); MCHC 32.5 g/dl (32.0-36.0); MEAN CELL VOLUME 89.2 fl (80-96); MEAN PLT VOLUME 8.9 fl (7.5-11.1); MONO % 4.6 % (3.8-10.2); NEUT % 71.4 % (42.8-82.8); PLATELET COUNT 220 K/MM3 (134-434); RDW 14.7 % (11.6-15.6)
[2020-04-23 17:49] LABS: VENOUS BASE EXCESS -6.8 mmol/L (-2-2); VENOUS O2 SATURATION 41.2 % (70-80); VENOUS PCO2 46.7 mmHg (38-52); VENOUS PH 7.259 (7.310-7.410)
[2020-04-23 18:20] LABS: ALBUMIN 4.5 g/dl (3.4-5.0); ALK PHOS 115 U/L (45-117); ANION GAP 18 MMOL/L (8-16); BILIRUBIN,TOTAL 0.8 mg/dL (0.2-1); BLOOD UREA NITROGEN 15.2 mg/dL (7-18); CALCIUM 10.7 mg/dL (8.5-10.1); CHLORIDE 92 mmol/L (98-107); CO2 21 mmol/L (21-32); CREATININE 1.1 mg/dL (0.55-1.3); LIPASE 24 U/L (73-393); POTASSIUM 5.3 mmol/L (3.5-5.1); SGOT/AST 24 U/L (15-37); SGPT/ALT 18 U/L (13-61); SODIUM 131 mmol/L (136-145); TOT PROT 9.2 g/dl (6.4-8.2)
[2020-04-23 18:32] LABS: GLUCOSE,RANDOM 446 mg/dL (74-106)
[2020-04-23] MEDS ORDERED: INSULIN REGULAR HUMAN 100 UNITS/ML *VIAL* (FOR IVP) IVPUSH ONE (18:38)
[2020-04-23] MEDS ORDERED: INSULIN REGULAR 100 UNITS in SODIUM CHLORIDE 99 ML IVPB SCH (18:45)
--- NOTE | 2020-04-23 18:55 | PDOC ---
Attending Attestation - Resident Resident Name: Tung Price - HPI HPI: 04/23/20 18:42 Pt presents to the ED complaining of nausea, vomiting and generalized malaise after missing her insulin for two days. Patient is extremely poor historian. History of DKA secondary to non compliance with insulin. - Physicial Exam PE: 04/23/20 18:55 Gen: alert, NAD. CV: rrr no m/r/g Pulm: CTA b/l abdomen: soft, non tender, non distended, no guarding or rebound. - Critical Care Time Total Critical Care Time: 30 Critical Care Statement: The care of this patient involved high complexity decision making to prevent further life threatening deterioration of the patient's condition and/or to evaluate & treat vital organ system(s) failure or risk of failure. - Medical Decision Making 04/23/20 18:55 Pt presents to the ED complaining of nausea and vomiting after non compliance with insulin. Labs are consistent with DKA. Will start IV hydration and ins ulin bolus and drip, admit to ICU. Discharge - Discharge Information Problems reviewed: Yes Clinical Impression/Diagnosis: Insulin dependent diabetes mellitus, Hyperglycemia DKA (diabetic ketoacidoses) Qualifiers: Diabetes mellitus type: other specified (including PAU) Diabetes mellitus complication detail: without coma Qualified Code(s): E13.10 - Other specified diabetes mellitus with ketoacidosis without coma Condition: Stable Disposition: HOME - Follow up/Referral - Patient Discharge Instructions - Post Discharge Activity
[2020-04-23] MEDS ORDERED: INSULIN REGULAR HUMAN 100 UNITS/ML *VIAL ONE (18:58)
--- NOTE | 2020-04-23 20:02 | HP ---
CHIEF COMPLAINT: nausea, high blood sugar PCP: HISTORY OF PRESENT ILLNESS: 50 yo F PMHx of IDDM, with, alcohol use disorder, mood disorder, Trichomoniasis presented to ED with nausea, abdominal pain and hyperglycemia. As per chart, also a possible unconfirmed cardiac history with possible FL or stroke. Patient went to her friends 2 days ago and forgot her insulin. She noticed her blood sugar was high and she didn't feel well so she called the ambulance. She says she's had DKA before. Patient has a long history of noncompliance. ER course was notable for: (1) glucose 451, AG 18 (2) WBC 12.0 (3) started on insulin drip and IVF Recent Travel: PAST MEDICAL HISTORY: IDDM Mood disorder Polysubstance abuse PAST SURGICAL HISTORY: no known surgery Social History: Smoking: smokes half a pack a day Alcohol: hx alcohol abuse Drugs: hx of polysubstance abuse Allergies No Known Allergies Allergy (Verified 04/23/20 16:36) HOME MEDICATIONS: Home Medications Medication Instructions Recorded Citalopram Hydrobromide [Celexa -] 40 mg PO DAILY #60 tablet 05/08/18 Quetiapine Fumarate [Seroquel -] 100 mg PO HS #30 tablet 05/08/18 traZODone HCL [Desyrel -] 150 mg PO HS #60 tablet 05/08/18 Ranitidine [Zantac -] 150 mg PO BID #60 tablet 05/09/18 Aspirin [ASA -] 81 mg PO DAILY #30 tab.chew 02/17/20 Atorvastatin Ca [Lipitor] 10 mg PO DAILY #30 tablet 02/17/20 Insulin Lispro [Admelog Solostar] See Protocol SQ TIDCM #2 insuln.pen 02/17/20 Ramipril [Altace] 5 mg PO DAILY #30 capsule 02/17/20 Folic Acid 1 mg PO DAILY #30 tablet 02/18/20 Gabapentin 600 mg PO TID #90 tablet 02/18/20 Thiamine HCl [B-1] 100 mg PO DAILY #30 tablet 02/18/20 Insulin Glargine,Hum.rec.anlog 20 unit SQ HS 04/23/20 [Lantus] REVIEW OF SYSTEMS CONSTITUTIONAL: weakness Absent: fever, chills, diaphoresis, generalized weakness, malaise, loss of appetite, weight change HEENT: Absent: rhinorrhea, nasal congestion, throat pain, throat swelling, difficulty swallowing, mouth swelling, ear pain, eye pain, visual changes CARDIOVASCULAR: Absent: chest pain, syncope, palpitations, irregular heart rate, lightheadedness, peripheral edema RESPIRATORY: Absent: cough, shortness of breath, dyspnea with exertion, orthopnea, wheezing, stridor, hemoptysis GASTROINTESTINAL: nausea Absent: abdominal pain, abdominal distension, nausea, vomiting, diarrhea, constipation, melena, hematochezia GENITOURINARY: Absent: dysuria, frequency, urgency, hesitancy, hematuria, flank pain, genital pain MUSCULOSKELETAL: Absent: myalgia, arthralgia, joint swelling, back pain, neck pain SKIN: Absent: rash, itching, pallor HEMATOLOGIC/IMMUNOLOGIC: Absent: easy bleeding, easy bruising, lymphadenopathy, frequent infections ENDOCRINE: Absent: unexplained weight gain, unexplained weight loss, heat intolerance, cold intolerance NEUROLOGIC: Absent: headache, focal weakness or paresthesias, dizziness, unsteady gait, seizure, mental status changes, bladder or bowel incontinence PSYCHIATRIC: Absent: anxiety, depression, suicidal or homicidal ideation, hallucinations. PHYSICAL EXAMINATION Vital Signs - 24 hr 04/23/20 04/23/20 04/23/20 16:29 19:42 19:44 Temperature 97.4 F L 98.4 F 98.4 F Pulse Rate 91 H Pulse Rate [ 102 H 107 H Right Radial] Respiratory 17 16 20 Rate Blood Pressure 145/89 Blood Pressure 150/85 150/85 [Left Arm] O2 Sat by Pulse 98 100 100 Oximetry (%) GENERAL: Awake, alert, oriented HEAD: Normal with no signs of trauma. EYES: PERRL, EOMI ENT: Moist mucous membranes. NECK: Supple LUNGS: CTA BL HEART: RRR, s1, s2 ABDOMEN: Soft, nontender, not distended MSK: No bony deformities or tenderness. No CVA tenderness. All extremities are warm, well-perfused. No peripheral edema. NEUROLOGICAL: slight lisp/slur to speech PSYCHIATRIC:: strange behavior, but cooperative SKIN: no rashes or lesions noted Laboratory Results - last 24 hr 04/23/20 04/23/20 04/23/20 16:24 17:35 17:35 WBC 12.0 H RBC 5.60 H Hgb 16.3 H Hct 50.0 H D MCV 89.2 MCH 29.0 MCHC 32.5 RDW 14.7 Plt Count 220 MPV 8.9 Absolute Neuts (auto) 8.6 H Neutrophils % 71.4 Lymphocytes % 22.7 Monocytes % 4.6 Eosinophils % 0.4 D Basophils % 0.9 Nucleated RBC % 0 VBG pH 7.259 L POC VBG pCO2 46.7 POC VBG pO2 26.8 L VBG HCO3 20.4 L VBG O2 Sat (John) 41.2 L VBG Base Excess -6.8 L Sodium Potassium Chloride Carbon Dioxide Anion Gap BUN Creatinine Est GFR (CKD-EPI)AfAm Est GFR (CKD-EPI)NonAf POC Glucometer 451 Random Glucose Calcium Total Bilirubin AST ALT Alkaline Phosphatase Total Protein Albumin Lipase Beta-Hydroxybutyrate 04/23/20 17:35 WBC RBC Hgb Hct MCV MCH MCHC RDW Plt Count MPV Absolute Neuts (auto) Neutrophils % Lymphocytes % Monocytes % Eosinophils % Basophils % Nucleated RBC % VBG pH POC VBG pCO2 POC VBG pO2 VBG HCO3 VBG O2 Sat (John) VBG Base Excess Sodium 131 L Potassium 5.3 H Chloride 92 L Carbon Dioxide 21 Anion Gap 18 H BUN 15.2 Creatinine 1.1 Est GFR (CKD-EPI)AfAm 68.75 Est GFR (CKD-EPI)NonAf 59.32 POC Glucometer Random Glucose 446 H* Calcium 10.7 H Total Bilirubin 0.8 AST 24 ALT 18 Alkaline Phosphatase 115 Total Protein 9.2 H Albumin 4.5 Lipase 24 L Beta-Hydroxybutyrate > 46.[address] HEAD: A chronic right temporal cortical infarct is noted laterally in the distribution of the middle cerebral artery. Several small associated dystrophic calcifications are seen. This chronic infarct has developed since a previous CT study of 02/16/2018. No gross mass lesion is noted. There is no obstructive hydrocephalus. The calvarium appears intact. Impression: No CT evidence of acute intracranial pathology. In comparison to a prior CT exam of 02/08/2018 interval development of a chronic right temporal cortical infarct is noted. ASSESSMENT/PLAN: 50 yo F PMHx of IDDM, with, substance abuse disorder, mood disorder, Trichomoni asis presented to ED with nausea, abdominal pain and hyperglycemia. Admitted to ICU with DKA on insulin drip. Neuro - awake alert and oriented - pt says history of FL and stroke, CT evidence of chronic right temporal cortical infarct (on aspirin and lipitor) Pulm - hx smoking - no current issues Cardio - possibly hx of FL - on ASA and lipitor - Repeat EKG in AM Renal - bun/cr normal - on ramipril at home Endo - 20 lantus HS - ISS at home with meals - hx DKA - Insulin drip started in ED, patient given regular NS, started on d5% 1/2 NS in unit - Q2h BMP & VBG until gap closes - bridge with 10 Units levemir BID and ISS GI - given zofran in ED for nausea ID - WBC 12 - UA pending - r/o UTI as contributing factor to DKA Psych - hx of substance abuse and mood disorder - tox screen + for cocaine - on seroquel, celexa and trazadone at home DVT ppx - sq heparin TID GI ppx - IV protonix daily FEN - D5% 1/2 NS 200cc/hr - NPO until gap closes - watch potassium - monitor and replete electrolytes PRN Family Medical History Family History: Unable to Obtain Visit type - Emergency Visit Emergency Visit: Yes ED Registration Date: 04/23/20 Care time: The patient presented to the Emergency Department on the above date and was hospitalized for further evaluation of their emergent condition. - New Patient This patient is new to me today: Yes Date on this admission: 04/29/20 - Critical Care Critical Care patient: Yes Total Critical Care Time (in minutes): 37 Critical Care Statement: The care of this patient involved high complexity decision making to prevent further life threatening deterioration of the patient's condition and/or to evaluate & treat vital organ system(s) failure or risk of failure. ATTENDING PHYSICIAN STATEMENT I saw and evaluated the patient. I reviewed the resident's note and discussed the case with the resident. I agree with the resident's findings and plan as documented. SUBJECTIVE: OBJECTIVE: ASSESSMENT AND PLAN:
[2020-04-23 20:30] LABS: ALBUMIN 4.1 g/dl (3.4-5.0); ALK PHOS 107 U/L (45-117); ANION GAP 17 MMOL/L (8-16); BILIRUBIN,TOTAL 0.6 mg/dL (0.2-1); BLOOD UREA NITROGEN 16.7 mg/dL (7-18); CALCIUM 9.7 mg/dL (8.5-10.1); CHLORIDE 97 mmol/L (98-107); CO2 20 mmol/L (21-32); CREATININE 1.2 mg/dL (0.55-1.3); GLUCOSE,RANDOM 353 mg/dL (74-106); POTASSIUM 4.6 mmol/L (3.5-5.1); SGOT/AST 17 U/L (15-37); SGPT/ALT 17 U/L (13-61); SODIUM 135 mmol/L (136-145); TOT PROT 8.2 g/dl (6.4-8.2)
[2020-04-23] MEDS ORDERED: SODIUM CHLORIDE 0.45% 1,000 ML IV SCH (20:30)
[2020-04-23 20:43] LABS: METHADONE, UR NEGATIVE ng/ml (CUTOFF=300); OPIATES, URI NEGATIVE ng/ml (CUTOFF=300); PHENCYCLIDINE,URINE NEGATIVE ng/ml (CUTOFF=25); URINE AMPHETAMINES NEGATIVE ng/ml (CUTOFF=500); URINE BARBITURATES NEGATIVE ng/ml (CUTOFF=200); URINE BENZODIAZEPINES NEGATIVE ng/ml (CUTOFF=200)
[2020-04-23 20:56] LABS: COCAINE, UR POSITIVE ng/ml (CUTOFF=300)
[2020-04-23 21:59] LABS: VENOUS BASE EXCESS -8.8 mmol/L (-2-2); VENOUS O2 SATURATION 91.4 % (70-80); VENOUS PCO2 36.4 mmHg (38-52); VENOUS PH 7.286 (7.310-7.410)
[2020-04-23] MEDS ORDERED: DEXTROSE 5%-0.45% SALINE 1,000 ML IV SCH (22:00)
[2020-04-23] MEDS ORDERED: INSULIN (LEVEMIR) 100 UNITS/ML UNITS SQ SCH ×2 (22:00)
[2020-04-23] MEDS ORDERED: INSULIN (NOVOLOG) ASPART 100 UNITS/ML 10ML VIAL SQ SCH (22:00)
[2020-04-23 22:28] LABS: BLOOD UREA NITROGEN 16.3 mg/dL (7-18); CALCIUM 9.3 mg/dL (8.5-10.1); CREATININE 0.9 mg/dL (0.55-1.3); POTASSIUM 3.7 mmol/L (3.5-5.1)
[2020-04-23] MEDS ORDERED: KCL 10 MEQ IVPB 10 MEQ/100 ML INFUS.BAG IVPB ONE (22:39)
[2020-04-23] MEDS: HEPARIN NA (PORCINE) 5,000 UNITS/ML 1ML VIAL SQ SCH ×2 (23:00→23:19)
[2020-04-23] MEDS: MUPIROCIN 2% TOPICAL OINTMENT FOR DECOLONIZATION NS SCH (23:00)
[2020-04-23] MEDS: CHLORHEXIDINE GLUCONATE 4% CLEANSER FOR DECOLONIZATION TP SCH (23:02)
[2020-04-23] MEDS ORDERED: HALOPERIDOL LACTATE 5 MG/ML IM ONE (23:30)
[2020-04-23] MEDS ORDERED: ACETYLCYSTEINE 20% 200MG/ML 30 ML VIAL *FOR ORAL / INH USE ONLY NEB ONE (23:33)
[2020-04-23] MEDS ORDERED: ALBUTEROL SO4 0.5 % INH SOLN 2.5 MG/0.5 ML VIAL.NEB. NEB ONE (23:35)
[2020-04-24] MEDS ORDERED: POTASSIUM CHLORIDE 10 MEQ in SODIUM CHLORIDE 0.45% 1,000 ML IVPB SCH (00:45)
[2020-04-24 01:16] LABS: CALCIUM 9.2 mg/dL (8.5-10.1); POTASSIUM 5.2 mmol/L (3.5-5.1)
[2020-04-24 03:56] LABS: POTASSIUM 4.2 mmol/L (3.5-5.1)
[2020-04-24 03:59] LABS: CALCIUM 8.9 mg/dL (8.5-10.1)
[2020-04-24] MEDS ORDERED: INSULIN (LEVEMIR) 100 UNITS/ML UNITS SQ SCH ×3 (04:11→22:00)
[2020-04-24] MEDS: HEPARIN NA (PORCINE) 5,000 UNITS/ML 1ML VIAL SQ SCH ×3 (06:28→21:37)
[2020-04-24] MEDS: GABAPENTIN 300 MG CAPSULE PO SCH ×3 (06:28→21:38)
[2020-04-24] MEDS ORDERED: DEXTROSE 5%-0.45% SALINE 1,000 ML IV SCH (06:30)
[2020-04-24 06:57] LABS: EPI CELLS >36 /uL (0-25.1); HYALINE CASTS 0 /uL (0-3.1); URINE APPEARANCE CLEAR; URINE BACTERIA 2355 /uL (0-1359); URINE BILIRUBIN NEGATIVE (NEGATIVE); URINE COLOR YELLOW; URINE GLUCOSE (UA) 3+ (NEGATIVE); URINE KETONE 4+ (NEGATIVE); URINE LEUK ESTERASE NEGATIVE (NEGATIVE); URINE NITRITE NEGATIVE (NEGATIVE); URINE PROTEIN 1+ (NEGATIVE); URINE RBC 5 /uL (0-23.9); URINE UROBILINOGEN 0.2 mg/dL (0.2-1.0); URINE WBC 53 /uL (0-25.8)
[2020-04-24] MEDS ORDERED: INSULIN REGULAR 100 UNITS in SODIUM CHLORIDE 99 ML IVPB SCH (07:00)
[2020-04-24 07:04] LABS: INR 1.06 (0.83-1.09); PROTHROMBIN TIME (PATIENT) 12.5 SEC (9.7-13.0)
[2020-04-24 07:05] LABS: BASO % 0.7 % (0-2.0); EOS % 0.8 % (0-4.5); HEMATOCRIT 43.6 % (32.4-45.2); HEMOGLOBIN 14.4 GM/dL (10.7-15.3); LYMPH % 34.8 % (8-40); MCH 28.6 pg (25.7-33.7); MCHC 33.1 g/dl (32.0-36.0); MEAN CELL VOLUME 86.4 fl (80-96); MEAN PLT VOLUME 8.2 fl (7.5-11.1); MONO % 9.1 % (3.8-10.2); NEUT % 54.6 % (42.8-82.8); PLATELET COUNT 202 K/MM3 (134-434); RBC 5.05 M/mm3 (3.60-5.2); WHITE BLOOD COUNT 14.6 K/mm3 (4.0-10.0)
[2020-04-24] MEDS ORDERED: INSULIN SLIDING SCALE (NOVOLOG) 1 VIAL SQ SCH (07:30)
[2020-04-24 07:32] LABS: ALBUMIN 3.5 g/dl (3.4-5.0); BILIRUBIN,TOTAL 0.4 mg/dL (0.2-1); BLOOD UREA NITROGEN 13.5 mg/dL (7-18); CALCIUM 8.6 mg/dL (8.5-10.1); CREATININE 0.9 mg/dL (0.55-1.3); MAGNESIUM 1.7 mg/dL (1.8-2.4); PHOSPHOROUS 2.8 mg/dL (2.5-4.9)
--- NOTE | 2020-04-24 08:26 | PN ---
Progress Note (short form) - Note Progress Note: PULM/CCM Patient seen and examined in ICU. Alert and oriented, not in acute distress. AGAP is 9, Insulin drip off. Tolerating PO diet well. Vital Signs Period Temp Pulse Resp BP Sys/Malik Pulse Ox Last 24 Hr 97.4 F-98.6 F 81-107 16-23 109-150/68-89 97-100 Intake & Output 04/21/20 04/22/20 04/23/20 04/24/20 23:59 23:59 23:59 23:59 Weight 87.543 kg GENERAL: Awake, alert, oriented HEAD: Normal with no signs of trauma. EYES: PERRL, EOMI ENT: Moist mucous membranes. NECK: Supple LUNGS: CTA BL HEART: RRR, s1, s2 ABDOMEN: Soft, nontender, not distended MSK: No CVA tenderness. All extremities are warm, well-perfused. No peripheral edema. NEUROLOGICAL: alert/oriented x3 SKIN: no rashes or lesions noted CBC, BMP 04/24/20 05:26 04/24/20 05:26 Active Medications Aspirin (Asa -) 81 mg PO DAILY [facility] Last Admin: 04/24/20 10:01 Dose: 81 mg Documented by: Atorvastatin Calcium (Lipitor -) 10 mg PO [facility] Chlorhexidine Gluconate (Hibiclens For Decolonization -) 1 applic TP HS [facility] Last Admin: 04/23/20 23:02 Dose: 1 applic Documented by: Citalopram Hydrobromide (Celexa -) 40 mg PO DAILY [facility] Last Admin: 04/24/20 11:02 Dose: 40 mg Documented by: Folic Acid (Folic Acid -) 1 mg PO DAILY [facility] Last Admin: 04/24/20 10:02 Dose: 1 mg Documented by: Gabapentin (Neurontin -) 600 mg PO TID [facility] Last Admin: 04/24/20 13:02 Dose: 600 mg Documented by: Heparin Sodium (Porcine) (Heparin -) 5,000 unit SQ TID [facility] Last Admin: 04/24/20 13:02 Dose: 5,000 unit Documented by: Dextrose/Sodium Chloride (D5-1/2ns -) 1,000 mls @ 150 mls/hr IV ASDIR [facility] Last Admin: 04/24/20 06:29 Dose: 150 mls/hr Documented by: Insulin Aspart (Novolog Vial Sliding Scale -) 1 vial SQ [facility]; Protocol Last Admin: 04/24/20 13:01 Dose: 12 units Documented by: Insulin Detemir (Levemir Vial) 20 units SQ [facility] Mupirocin (Bactroban Ointment (For Decolonization) -) 1 applic NS BID [facility] Stop: 04/28/20 21:59 Last Admin: 04/24/20 10:02 Dose: 1 applic Documented by: Pantoprazole Sodium (Protonix Iv) 40 mg IVPUSH DAILY [facility] Last Admin: 04/24/20 10:02 Dose: 40 mg Documented by: Quetiapine Fumarate (Seroquel -) 100 mg PO [facility] Ramipril (Altace -) 5 mg PO DAILY [facility] Last Admin: 04/24/20 10:01 Dose: 5 mg Documented by: Thiamine HCl (Vitamin B1 -) 100 mg PO DAILY [facility] Last Admin: 04/24/20 10:02 Dose: 100 mg Documented by: Trazodone HCl (Desyrel -) 150 mg PO [facility] A/ DKA 2/2 to missed doses of insulin (resolved) Polysubstance abuse Hx of CVA and ND as per pt mood disorder Alcohol abuse P/ -Stop insulin drip -Levemir 10 units SQ given at 6.30 am -D/c IVF -monitor and replete electrolytes PRN -Diabetic diet as tolerated -Continue psych meds -Will add Levemir home dose 20 units HS -Insulin coverage scale ACHS -continue Thiamine and MVI -Monitor for s/s alcohol withdrawal Dispo: full code. Critical care issues resolved. Can transfer to /s Susie Jorgensen ACNP [id number]
[2020-04-24] MEDS: ASPIRIN 81 MG CHEWABLE TABLETS PO SCH (10:01)
[2020-04-24] MEDS: RAMIPRIL 5 MG CAPSULE PO SCH (10:01)
[2020-04-24] MEDS: PANTOPRAZOLE SODIUM 40 MG VIAL IVPUSH SCH (10:02)
[2020-04-24] MEDS: THIAMINE HCL 100 MG TABLET (FP) PO SCH (10:02)
[2020-04-24] MEDS: FOLIC ACID 1 MG TABLET (FP) PO SCH (10:02)
[2020-04-24] MEDS: MUPIROCIN 2% TOPICAL OINTMENT FOR DECOLONIZATION NS SCH ×2 (10:02→21:39)
[2020-04-24] MEDS: CITALOPRAM HYDROBROMIDE 20 MG TABLET PO SCH (11:02)
[2020-04-24] MEDS: INSULIN SLIDING SCALE (NOVOLOG) 1 VIAL SQ SCH ×3 (13:01→21:46)
[2020-04-24] MEDS ORDERED: INSULIN (LEVEMIR) 100 UNITS/ML UNITS SQ ONE (13:23)
--- NOTE | 2020-04-24 18:10 | PN ---
Progress Note (short form) - Note Progress Note: Discussed patient with ICU care team who wishes to transfer to medical floor. 50yo F with frequent DKA visits, Type 1 DM, alcohol use disorder, and mood disorder who was once again admitted for DKA. She was placed on insulin gtt alongside of IVF and her anion gap closed. She was trialed for PO intake and transitioned to long-acting insulin. Her etiology of this DKA episode seems to be noncompliance as the patient is controlled on her home medications prior to her discharges. Patient noted to be hypoglycemic today due to overlapping insulin doses, however quickly corrected and remained clinically stable throughout. Patient to begin home dosing of Levemir 20U HS. Patient stable for medical-surgical floor and agree with current medications. Vital Signs Temperature 98.3 F 04/24/20 07:00 Pulse Rate 75 04/24/20 17:00 Respiratory Rate 20 04/24/20 17:00 Blood Pressure 118/70 04/24/20 17:00 O2 Sat by Pulse Oximetry (%) 100 04/24/20 17:00 CBC, BMP 04/24/20 05:26 04/24/20 05:26 04/23/20 19:46 Cocaine Screen Positive A* Active Medications Aspirin (Asa -) 81 mg PO DAILY [facility] Last Admin: 04/24/20 10:01 Dose: 81 mg Documented by: Atorvastatin Calcium (Lipitor -) 10 mg PO [facility] Chlorhexidine Gluconate (Hibiclens For Decolonization -) 1 applic TP HS [facility] Last Admin: 04/23/20 23:02 Dose: 1 applic Documented by: Citalopram Hydrobromide (Celexa -) 40 mg PO DAILY [facility] Last Admin: 04/24/20 11:02 Dose: 40 mg Documented by: Folic Acid (Folic Acid -) 1 mg PO DAILY [facility] Last Admin: 04/24/20 10:02 Dose: 1 mg Documented by: Gabapentin (Neurontin -) 600 mg PO TID [facility] Last Admin: 04/24/20 13:02 Dose: 600 mg Documented by: Heparin Sodium (Porcine) (Heparin -) 5,000 unit SQ TID [facility] Last Admin: 04/24/20 13:02 Dose: 5,000 unit Documented by: Insulin Aspart (Novolog Vial Sliding Scale -) 1 vial SQ [facility]; Protocol Last Admin: 04/24/20 17:53 Dose: 12 units Documented by: Insulin Detemir (Levemir Vial) 20 units SQ [facility] Mupirocin (Bactroban Ointment (For Decolonization) -) 1 applic NS BID [facility] Stop: 04/28/20 21:59 Last Admin: 04/24/20 10:02 Dose: 1 applic Documented by: Pantoprazole Sodium (Protonix Iv) 40 mg IVPUSH DAILY [facility] Last Admin: 04/24/20 10:02 Dose: 40 mg Documented by: Pantoprazole Sodium (Protonix -) 40 mg PO DAILY [facility] Quetiapine Fumarate (Seroquel -) 100 mg PO [facility] Ramipril (Altace -) 5 mg PO DAILY [facility] Last Admin: 04/24/20 10:01 Dose: 5 mg Documented by: Thiamine HCl (Vitamin B1 -) 100 mg PO DAILY [facility] Last Admin: 04/24/20 10:02 Dose: 100 mg Documented by: Trazodone HCl (Desyrel -) 150 mg PO [facility]
[2020-04-24] MEDS: traZODone HCL 50 MG TABLET (FP) PO SCH (21:37)
[2020-04-24] MEDS: ATORVASTATIN CA 10 MG TABLET (FP) PO SCH (21:38)
[2020-04-24] MEDS: QUEtiapine FUMARATE 100 MG TABLET (FP) PO SCH (21:38)
[2020-04-24] MEDS: CHLORHEXIDINE GLUCONATE 4% CLEANSER FOR DECOLONIZATION TP SCH (21:39)
[2020-04-25] MEDS: HEPARIN NA (PORCINE) 5,000 UNITS/ML 1ML VIAL SQ SCH ×3 (06:27→21:25)
[2020-04-25] MEDS: GABAPENTIN 300 MG CAPSULE PO SCH ×3 (06:28→21:26)
[2020-04-25] MEDS: INSULIN SLIDING SCALE (NOVOLOG) 1 VIAL SQ SCH ×4 (06:51→21:26)
[2020-04-25 06:54] LABS: BASO % 0.6 % (0-2.0); EOS % 3.3 % (0-4.5); HEMATOCRIT 40.3 % (32.4-45.2); HEMOGLOBIN 13.4 GM/dL (10.7-15.3); LYMPH % 57.8 % (8-40); MCH 28.8 pg (25.7-33.7); MCHC 33.3 g/dl (32.0-36.0); MEAN CELL VOLUME 86.4 fl (80-96); MEAN PLT VOLUME 8.4 fl (7.5-11.1); MONO % 7.8 % (3.8-10.2); NEUT % 30.5 % (42.8-82.8); PLATELET COUNT 178 K/MM3 (134-434); RBC 4.67 M/mm3 (3.60-5.2); RDW 14.8 % (11.6-15.6); WHITE BLOOD COUNT 8.3 K/mm3 (4.0-10.0)
[2020-04-25 06:59] LABS: BILIRUBIN,TOTAL 0.4 mg/dL (0.2-1); BLOOD UREA NITROGEN 19.4 mg/dL (7-18); CALCIUM 8.4 mg/dL (8.5-10.1); MAGNESIUM 1.5 mg/dL (1.8-2.4); PHOSPHOROUS 3.3 mg/dL (2.5-4.9); POTASSIUM 4.2 mmol/L (3.5-5.1); TOT PROT 6.2 g/dl (6.4-8.2)
[2020-04-25] MEDS ORDERED: PT OWN MED DRAWER 7, Y5N ONE (09:00)
[2020-04-25] MEDS: RAMIPRIL 5 MG CAPSULE PO SCH (09:15)
[2020-04-25] MEDS: ASPIRIN 81 MG CHEWABLE TABLETS PO SCH (09:15)
[2020-04-25] MEDS: PANTOPRAZOLE SODIUM 40 MG VIAL IVPUSH SCH (09:16)
[2020-04-25] MEDS: FOLIC ACID 1 MG TABLET (FP) PO SCH (09:16)
[2020-04-25] MEDS: MUPIROCIN 2% TOPICAL OINTMENT FOR DECOLONIZATION NS SCH ×2 (09:16→21:25)
[2020-04-25] MEDS: THIAMINE HCL 100 MG TABLET (FP) PO SCH (09:16)
[2020-04-25] MEDS: CITALOPRAM HYDROBROMIDE 20 MG TABLET PO SCH (09:16)
[2020-04-25] MEDS: PANTOPRAZOLE 40 MG TABLET PO SCH (09:16)
[2020-04-25] MEDS ORDERED: INSULIN (LEVEMIR) 100 UNITS/ML UNITS SQ SCH (11:31)
--- NOTE | 2020-04-25 11:50 | PN ---
Progress Note (short form) - Note Progress Note: SUBJECTIVE: Seen and examined at bedside. White count and sugars improved. Will discontinue telemetry and downgrade to floor with plan for discharge tomorrow OBJECTIVE Last Vital Signs Temp Pulse Resp BP Pulse Ox 98.3 F 79 20 105/99 100 04/24/20 20:00 04/25/20 07:51 04/25/20 07:51 04/25/20 07:51 04/25/20 07:51 PE: GEN: NAD HEENT: NC/AT [facility] RESP: CTAB CARDS: RRR, -MRG ABD: soft, nt/nd +BS EXT: No swelling/Edema Neuro: Non-focal, A&OX3 Labs/Imaging: reviewed ASSESSMENT/PLAN 50-year-old female with frequent DKA visits, type 1 diabetes, alcohol use, mood disorder admitted for DKA. Gap closed in the ICU and patient downgraded to floor #DKA Gap closed, electrolytes stable white count normalized Levemir 15 at bedtime and 10 daily Sliding scale #Psych history Continue home medications #Hx CAD Continue aspirin, statin #Hypertension Continue home medications Disposition: Plan to discharge tomorrow morning Visit type - Emergency Visit Emergency Visit: Yes ED Registration Date: 04/23/20 Care time: The patient presented to the Emergency Department on the above date and was hospitalized for further evaluation of their emergent condition. - New Patient This patient is new to me today: Yes Date on this admission: 04/25/20 - Critical Care Critical Care patient: No
[2020-04-25] MEDS: INSULIN (LEVEMIR) 100 UNITS/ML UNITS SQ SCH (12:00)
[2020-04-25] MEDS ORDERED: INSULIN (NOVOLOG) ASPART 100 UNITS/ML 10ML VIAL SQ ONE (13:45)
--- NOTE | 2020-04-25 20:06 | EKG ---
Test Reason : Blood Pressure : / mmHG Vent. Rate : 083 BPM Atrial Rate : 083 BPM P-R Int : 126 ms QRS Dur : 074 ms QT Int : 416 ms P-R-T Axes : 070 011 050 degrees QTc Int : 488 ms NORMAL SINUS RHYTHM T ABNORMALITY, CONSIDER ANTERIOR ISCHEMIA PROLONGED QT ABNORMAL ECG WHEN COMPARED WITH ECG OF 23-APR-2020 18:43, T WAVE INVERSION IS SEEN IN ANTERIOR LEADS Confirmed by TATIANNA RENO MD ([id number]) on 04/25/2020 8:06:02 PM Referred By: Seng CHRISTIANSON Confirmed By:TATIANNA RENO MD
[2020-04-25] MEDS: QUEtiapine FUMARATE 100 MG TABLET (FP) PO SCH (21:25)
[2020-04-25] MEDS: ATORVASTATIN CA 10 MG TABLET (FP) PO SCH (21:25)
[2020-04-25] MEDS: traZODone HCL 50 MG TABLET (FP) PO SCH (21:25)
[2020-04-25] MEDS: CHLORHEXIDINE GLUCONATE 4% CLEANSER FOR DECOLONIZATION TP SCH (21:26)
--- NOTE | 2020-04-25 21:36 | EKG ---
Test Reason : Blood Pressure : / mmHG Vent. Rate : 099 BPM Atrial Rate : 099 BPM P-R Int : 114 ms QRS Dur : 074 ms QT Int : 350 ms P-R-T Axes : 079 039 066 degrees QTc Int : 449 ms NORMAL SINUS RHYTHM BIATRIAL ENLARGEMENT ABNORMAL ECG WHEN COMPARED WITH ECG OF 14-FEB-2020 05:27, NO SIGNIFICANT CHANGE WAS FOUND Confirmed by TATIANNA RENO MD ([id number]) on 04/25/2020 9:35:57 PM Referred By: Confirmed By:TATIANNA RENO MD
[2020-04-26] MEDS: GABAPENTIN 300 MG CAPSULE PO SCH (05:58)
[2020-04-26] MEDS: HEPARIN NA (PORCINE) 5,000 UNITS/ML 1ML VIAL SQ SCH (05:58)
[2020-04-26] MEDS: INSULIN SLIDING SCALE (NOVOLOG) 1 VIAL SQ SCH ×3 (06:05→12:00)
[2020-04-26 07:37] LABS: BASO % 1.2 % (0-2.0); EOS % 2.8 % (0-4.5); HEMATOCRIT 41.6 % (32.4-45.2); HEMOGLOBIN 13.7 GM/dL (10.7-15.3); LYMPH % 47.9 % (8-40); MCH 28.8 pg (25.7-33.7); MEAN CELL VOLUME 87.3 fl (80-96); MEAN PLT VOLUME 8.9 fl (7.5-11.1); MONO % 7.2 % (3.8-10.2); NEUT % 40.9 % (42.8-82.8); PLATELET COUNT 172 K/MM3 (134-434); RBC 4.77 M/mm3 (3.60-5.2); RDW 14.9 % (11.6-15.6); WHITE BLOOD COUNT 8.7 K/mm3 (4.0-10.0)
[2020-04-26 07:50] LABS: CALCIUM 8.5 mg/dL (8.5-10.1); CREATININE 0.9 mg/dL (0.55-1.3); POTASSIUM 4.2 mmol/L (3.5-5.1)
[2020-04-26 09:46] VITALS: BMI 29.2
[2020-04-26] MEDS ORDERED: ASPIRIN 81 MG CHEWABLE TABLETS PO SCH (10:00)
[2020-04-26] MEDS ORDERED: CITALOPRAM HYDROBROMIDE 20 MG TABLET PO SCH (10:00)
[2020-04-26] MEDS ORDERED: THIAMINE HCL 100 MG TABLET (FP) PO SCH (10:00)
[2020-04-26] MEDS ORDERED: FOLIC ACID 1 MG TABLET (FP) PO SCH (10:00)
[2020-04-26] MEDS ORDERED: RAMIPRIL 5 MG CAPSULE PO SCH (10:00)
[2020-04-26] MEDS: PANTOPRAZOLE 40 MG TABLET PO SCH (10:24)
[2020-04-26] MEDS ORDERED: INSULIN (NOVOLOG) ASPART 100 UNITS/ML 10ML VIAL ONE (11:58)
--- NOTE | 2020-04-26 12:00 | DS ---
Physical Exam: SUBJECTIVE: Patient seen and examined, no acute complaints. OBJECTIVE: Vital Signs Period Temp Pulse Resp BP Sys/Malik Pulse Ox Last 24 Hr 98.6 F 75-80 12-20 115-139/67-110 94-100 PHYSICAL EXAM GENERAL: The patient is awake, alert, and fully oriented, in no acute distress. HEAD: Normal with no signs of trauma. EYES: PERRL, extraocular movements intact ENT: moist mucous membranes. LUNGS: Breath sounds equal, clear to auscultation bilaterally, no wheezes, no crackles, no accessory muscle use. HEART: Regular rate and rhythm, S1, S2 without murmur, rub or gallop. ABDOMEN: Soft, nontender, nondistended, normoactive bowel sounds, EXTREMITIES: 2+ pulses, warm, well-perfused, no edema. SKIN: Warm, dry, normal turgor, no rashes or lesions noted. LABS CBC, BMP 04/26/20 06:00 04/26/20 06:00 HOSPITAL COURSE: Date of Admission:04/23/20 50 yo F PMHx of IDDM, with, alcohol use disorder, mood disorder, Trichomoniasis presented to ED with nausea, abdominal pain and hyperglycemia. Patient had not been taking her medication. IV insulin was given and anion gap close, patient able to be downgraded, and sugars stayed stable. Patient stable for DC. CT evidence of chronic right temporal cortical infarct Date of Discharge: 04/26/20 Minutes to complete discharge: 35 Discharge Summary Problems reviewed: Yes Reason For Visit: DIABETIC KETOACIDOSIS HYPERGLYCEMIA Current Active Problems DKA (diabetic ketoacidoses) (Acute) Hyperglycemia (Acute) Insulin dependent diabetes mellitus (Acute) Condition: Stable - Instructions Diet, Activity, Other Instructions: You were admitted to the hospital for having Diabetic Keto Acidosis, this means your glucose (sugar) was very high and was affecting the rest of your body. We treated you with insulin and fluids and your glucose levels are now under control. It is VERY important that you maintain your glucose levels. Continue to take your medications as prescribed by your Primary Care Physician. Your medication Zantac has been discontinue. Please instead take Pepcid 20 mg twice a day as needed for your heartburn symptoms. Make an appointment to follow up with your Primary Care Physician within one week. Return to the Emergency Room in you have any nausea, vomiting, diarrhea, chest pain, shortness of breath or worsening of your symptoms. Referrals: Navarro Tamayo MD [Primary Care Provider] - 1 Week (Appointment scheduled for Sunday, 05/03 2:30pm) Disposition: HOME - Home Medications Comprehensive Discharge Medication List: Ambulatory Orders Aspirin [ASA -] 81 mg PO DAILY #30 tab.chew 04/26/20 Atorvastatin Ca [Lipitor] 10 mg PO DAILY #30 tablet 04/26/20 Citalopram Hydrobromide [Celexa -] 40 mg PO DAILY #60 tablet 04/26/20 Clopidogrel Bisulfate [Clopidogrel] 1 tab PO DAILY 04/26/20 Famotidine [Pepcid] 20 mg PO BID #60 tablet 04/26/20 Folic Acid 1 mg PO DAILY #30 tablet 04/26/20 Gabapentin 600 mg PO TID #90 tablet 04/26/20 Insulin Glargine,Hum.rec.anlog [Lantus] 20 unit SQ HS #2 vial 04/26/20 Insulin Lispro [Admelog Solostar] See Protocol SQ TIDCM #2 insuln.pen 04/26/20 Quetiapine Fumarate [Seroquel -] 100 mg PO HS #30 tablet 04/26/20 Ramipril [Altace] 5 mg PO DAILY #30 capsule 04/26/20 Thiamine HCl [B-1] 100 mg PO DAILY #30 tablet 04/26/20 traZODone HCL [Desyrel -] 150 mg PO HS #60 tablet 04/26/20 This patient is new to me today: Yes Date on this admission: 04/26/20 Emergency Visit: No Critical Care patient: No - Discharge Referral Referred to [facility] No ATTENDING PHYSICIAN STATEMENT I saw and evaluated the patient. I reviewed the resident's note and discussed the case with the resident. I agree with the resident's findings and plan as documented. SUBJECTIVE: OBJECTIVE: ASSESSMENT AND PLAN:
--- NOTE | 2020-04-26 12:19 | PN ---
Teaching Attending Note Name of Resident: Brittany Zarco ATTENDING PHYSICIAN STATEMENT I saw and evaluated the patient. I reviewed the resident's note and discussed the case with the resident. I agree with the resident's findings and plan as documented. SUBJECTIVE: Seen and examined at bedside. Patient is hemodynamically stable, gap remains closed, insulin is controlled. Patient is medically cleared for discharge. She will be discharged on her home medications will follow-up with her PCP. She was given 1 months worth of prescriptions which were delivered to her bedside as she ran out of medications at home OBJECTIVE Last Vital Signs Temp Pulse Resp BP Pulse Ox 98.6 F 77 20 133/85 96 04/26/20 09:21 04/26/20 09:21 04/26/20 09:21 04/26/20 09:21 04/26/20 09:21 PE: GEN: NAD HEENT: NC/AT [facility] RESP: CTAB CARDS: RRR, -MRG ABD: soft, nt/nd +BS EXT: No swelling/Edema Neuro: Non-focal, A&OX3 Labs/Imaging: reviewed ASSESSMENT/PLAN 50-year-old female with frequent DKA visits, type 1 diabetes, alcohol use, mood disorder admitted for DKA. Gap closed in the ICU and patient downgraded to floor. Patient is hemodynamically stable and is medically cleared for discharge on her home medications. She will be discharged with 1 month of medications will follow-up with her PCP
[2020-04-26 13:36] VITALS: BP 110/66; PULSE 76; TEMP 98.9
[2020-04-26] MEDS: INSULIN (LEVEMIR) 100 UNITS/ML UNITS SQ SCH (13:36)
[2020-04-26] MEDS ORDERED: GABAPENTIN 300 MG CAPSULE PO SCH (14:00)
[2020-04-26] MEDS ORDERED: HEPARIN NA (PORCINE) 5,000 UNITS/ML 1ML VIAL SQ SCH (14:00)
[2020-04-26] MEDS ORDERED: ATORVASTATIN CA 10 MG TABLET (FP) PO SCH (22:00)
[2020-04-26] MEDS ORDERED: traZODone HCL 50 MG TABLET (FP) PO SCH (22:00)
[2020-04-26] MEDS ORDERED: QUEtiapine FUMARATE 100 MG TABLET (FP) PO SCH (22:00)
== END 2020-04-26 15:56 | disposition home or self-care (01) | DRG 420 ==
LOC: JER 16:10 → JERBED 18:43 → JICU 20:56 → J6S 04-26 06:49
PROVIDERS: ADMIT Internal Medicine Pulmonary Disease; ATTEND Internal Medicine
DX: E10.10 Type 1 diabetes mellitus with ketoacidosis without coma (principal); E78.5 Hyperlipidemia, unspecified; F10.10 Alcohol abuse, uncomplicated; I10 Essential (primary) hypertension; Z79.4 Long term (current) use of insulin; E10.649 Type 1 diabetes mellitus with hypoglycemia without coma; F39 Unspecified mood [affective] disorder; R11.0 Nausea
CPT/HCPCS: 36415; 70450-TC; 71045-TC-FY; 80048; 80053; 80307; 81003; 82010; 82803; 82962; 83690; 83735; 84100; 85025; 85610; 87086; 93005; 93010; 99285-25; J0131; J1644; U0003

== ENCOUNTER 2020-06-28 22:30 | Inpatient (IN) | payer OTHER ==
[2020-06-28 22:43] VITALS: BMI 28.8
[2020-06-29] MEDS ORDERED: morphine CARPU-JECT 4 MG/1 ML DISP.SYRIN IVPUSH ONE (01:47)
[2020-06-29] MEDS ORDERED: morphine SULFATE 4 MG/ML VIAL ONE (01:56)
[2020-06-29 02:45] LABS: BASO % 0.9 % (0-2.0); EOS % 3.5 % (0-4.5); HEMATOCRIT 40.1 % (32.4-45.2); HEMOGLOBIN 13.5 GM/dL (10.7-15.3); LYMPH % 43.7 % (8-40); MCH 29.6 pg (25.7-33.7); MCHC 33.6 g/dl (32.0-36.0); MEAN CELL VOLUME 88.1 fl (80-96); MEAN PLT VOLUME 8.6 fl (7.5-11.1); MONO % 6.8 % (3.8-10.2); NEUT % 45.1 % (42.8-82.8); PLATELET COUNT 205 K/MM3 (134-434); RBC 4.55 M/mm3 (3.60-5.2); RDW 13.8 % (11.6-15.6); WHITE BLOOD COUNT 8.3 K/mm3 (4.0-10.0)
[2020-06-29 02:55] LABS: INR 0.92 (0.83-1.09); PROTHROMBIN TIME (PATIENT) 11.4 SEC (9.7-13.0)
[2020-06-29 02:59] LABS: CHLORIDE 103 mmol/L (98-107); POTASSIUM 4.4 mmol/L (3.5-5.1); SODIUM 138 mmol/L (136-145)
[2020-06-29 03:02] LABS: ALBUMIN 3.5 g/dl (3.4-5.0); ANION GAP 6 MMOL/L (8-16); BLOOD UREA NITROGEN 12.1 mg/dL (7-18); CALCIUM 8.3 mg/dL (8.5-10.1); CO2 29 mmol/L (21-32); GLUCOSE,RANDOM 126 mg/dL (74-106)
[2020-06-29 03:06] LABS: BILIRUBIN,TOTAL 0.2 mg/dL (0.2-1); CREATININE 1.1 mg/dL (0.55-1.3); SGOT/AST 38 U/L (15-37); SGPT/ALT 32 U/L (13-61); TOT PROT 7.2 g/dl (6.4-8.2)
[2020-06-29 03:07] LABS: ALK PHOS 94 U/L (45-117)
[2020-06-29] MEDS ORDERED: MORPHINE SULFATE 2 MG/ML VIAL IVPUSH ONE (03:49)
[2020-06-29] MEDS ORDERED: MORPHINE SULFATE 2 MG/ML VIAL ONE (03:57)
[2020-06-29 07:07] LABS: PH,URINE 6.5 (5.0-8.0); URINE APPEARANCE CLEAR; URINE BILIRUBIN NEGATIVE (NEGATIVE); URINE COLOR YELLOW; URINE GLUCOSE (UA) NEGATIVE (NEGATIVE); URINE KETONE NEGATIVE (NEGATIVE); URINE LEUK ESTERASE NEGATIVE (NEGATIVE); URINE NITRITE NEGATIVE (NEGATIVE); URINE PROTEIN TRACE (NEGATIVE); URINE UROBILINOGEN 0.2 mg/dL (0.2-1.0)
[2020-06-29 07:13] LABS: METHADONE, UR NEGATIVE ng/ml (CUTOFF=300)
[2020-06-29 07:14] LABS: PHENCYCLIDINE,URINE NEGATIVE ng/ml (CUTOFF=25); URINE AMPHETAMINES NEGATIVE ng/ml (CUTOFF=500); URINE BARBITURATES NEGATIVE ng/ml (CUTOFF=200); URINE BENZODIAZEPINES NEGATIVE ng/ml (CUTOFF=200)
[2020-06-29 07:18] LABS: COCAINE, UR POSITIVE ng/ml (CUTOFF=300); OPIATES, URI POSITIVE ng/ml (CUTOFF=300)
[2020-06-29] MEDS: INSULIN SLIDING SCALE (NOVOLOG) 1 VIAL SQ SCH ×4 (08:38→22:38)
[2020-06-29] MEDS ORDERED: FAMOTIDINE 20 MG TABLET ONE ×2 (10:40→22:28)
[2020-06-29] MEDS ORDERED: THIAMINE HCL 100 MG TABLET (FP) ONE (10:40)
[2020-06-29] MEDS ORDERED: FOLIC ACID 1 MG TABLET (FP) ONE (10:41)
[2020-06-29] MEDS ORDERED: RAMIPRIL 5 MG CAPSULE ONE (10:41)
[2020-06-29] MEDS: RAMIPRIL 5 MG CAPSULE PO SCH (10:48)
[2020-06-29] MEDS: THIAMINE HCL 100 MG TABLET (FP) PO SCH (10:48)
[2020-06-29] MEDS: FAMOTIDINE 20 MG TABLET PO SCH ×2 (10:48→22:39)
[2020-06-29] MEDS: FOLIC ACID 1 MG TABLET (FP) PO SCH (10:48)
[2020-06-29] MEDS ORDERED: KETOROLAC TROMETHAMINE 15 MG/ML VIAL IVPUSH PRN (13:11)
[2020-06-29] MEDS ORDERED: CLOPIDOGREL BISULFATE 75 MG TABLET (FP) PO SCH (13:15)
[2020-06-29] MEDS ORDERED: ASPIRIN 81 MG CHEWABLE TABLETS ONE (13:43)
[2020-06-29] MEDS ORDERED: CLOPIDOGREL BISULFATE 75 MG TABLET (FP) ONE (13:43)
[2020-06-29] MEDS ORDERED: PANTOPRAZOLE 20 MG TABLET PO ONE (13:44)
[2020-06-29] MEDS: GABAPENTIN 300 MG CAPSULE PO SCH ×2 (13:51→22:18)
[2020-06-29] MEDS: PANTOPRAZOLE 40 MG TABLET PO SCH (13:51)
[2020-06-29] MEDS: CITALOPRAM HYDROBROMIDE 20 MG TABLET PO SCH (13:51)
[2020-06-29] MEDS: ASPIRIN 81 MG CHEWABLE TABLETS PO SCH (13:51)
[2020-06-29 13:57] LABS: HEMATOCRIT 36.9 % (32.4-45.2); HEMOGLOBIN 12.3 GM/dL (10.7-15.3); MCH 29.3 pg (25.7-33.7); MCHC 33.2 g/dl (32.0-36.0); MEAN CELL VOLUME 88.2 fl (80-96); PLATELET COUNT 188 K/MM3 (134-434); RBC 4.19 M/mm3 (3.60-5.2); RDW 13.9 % (11.6-15.6); WHITE BLOOD COUNT 8.8 K/mm3 (4.0-10.0)
[2020-06-29 14:01] LABS: INR 1.02 (0.83-1.09); PROTHROMBIN TIME (PATIENT) 12.3 SEC (9.7-13.0)
[2020-06-29 14:21] LABS: CHLORIDE 100 mmol/L (98-107); POTASSIUM 4.6 mmol/L (3.5-5.1); SODIUM 133 mmol/L (136-145)
[2020-06-29 14:24] LABS: CALCIUM 8.4 mg/dL (8.5-10.1); GLUCOSE,RANDOM 340 mg/dL (74-106)
[2020-06-29 14:25] LABS: ALBUMIN 3.2 g/dl (3.4-5.0); ANION GAP 8 MMOL/L (8-16); BLOOD UREA NITROGEN 15.4 mg/dL (7-18); CO2 25 mmol/L (21-32); MAGNESIUM 1.4 mg/dL (1.8-2.4)
[2020-06-29 14:27] LABS: PHOSPHOROUS 3.7 mg/dL (2.5-4.9); SGPT/ALT 26 U/L (13-61); TRIGLYCERIDES 52 mg/dL (0-150)
[2020-06-29 14:28] LABS: CHOLESTEROL 204 mg/dL (50-200); SGOT/AST 23 U/L (15-37)
[2020-06-29 14:30] LABS: ALK PHOS 91 U/L (45-117); BILIRUBIN,TOTAL 0.6 mg/dL (0.2-1); HDL CHOLESTEROL 120 mg/dL (40-60); LDL CHOLESTEROL (ONLY SJRH) 73 mg/dL (5-100); TOT PROT 6.2 g/dl (6.4-8.2)
[2020-06-29] MEDS ORDERED: ACETAMINOPHEN 500 MG TABLET (FP) ONE (16:52)
[2020-06-29] MEDS: ACETAMINOPHEN 500 MG TABLET (FP) PO PRN (16:56)
[2020-06-29] MEDS ORDERED: LORazepam 2 MG/ML SDV VIAL IVPUSH PRN (20:47)
[2020-06-29] MEDS: NICOTINE 21 MG/24 HOURS TOPICAL PATCH TD SCH (22:17)
[2020-06-29] MEDS: ATORVASTATIN CA 10 MG TABLET (FP) PO SCH (22:18)
[2020-06-29] MEDS: traZODone HCL 50 MG TABLET (FP) PO SCH (22:18)
[2020-06-29] MEDS ORDERED: ACETAMINOPHEN 325 MG TABLET (FP) ONE (22:28)
[2020-06-29] MEDS ORDERED: QUEtiapine FUMARATE 100 MG TABLET (FP) ONE (22:28)
[2020-06-29] MEDS ORDERED: INSULIN REGULAR HUMAN 100 UNITS/ML *VIAL ONE (22:33)
[2020-06-29] MEDS: QUEtiapine FUMARATE 100 MG TABLET (FP) PO SCH (22:39)
[2020-06-30] MEDS: GABAPENTIN 300 MG CAPSULE PO SCH ×3 (06:17→21:08)
[2020-06-30] MEDS: INSULIN SLIDING SCALE (NOVOLOG) 1 VIAL SQ SCH ×4 (06:22→21:10)
[2020-06-30] MEDS: INSULIN (LEVEMIR) 100 UNITS/ML UNITS SQ SCH ×2 (06:22→09:58)
[2020-06-30] MEDS: ACETAMINOPHEN 500 MG TABLET (FP) PO PRN ×3 (06:58→18:09)
[2020-06-30] MEDS ORDERED: PT OWN MED DRAWER 7, Y5N ONE (09:52)
[2020-06-30] MEDS: RAMIPRIL 5 MG CAPSULE PO SCH (09:57)
[2020-06-30] MEDS: NICOTINE 21 MG/24 HOURS TOPICAL PATCH TD SCH (09:57)
[2020-06-30] MEDS: ASPIRIN 81 MG CHEWABLE TABLETS PO SCH (09:57)
[2020-06-30] MEDS: PANTOPRAZOLE 40 MG TABLET PO SCH (09:58)
[2020-06-30] MEDS: CITALOPRAM HYDROBROMIDE 20 MG TABLET PO SCH (09:58)
[2020-06-30] MEDS: FAMOTIDINE 20 MG TABLET PO SCH ×2 (09:58→21:09)
[2020-06-30] MEDS: THIAMINE HCL 100 MG TABLET (FP) PO SCH (09:58)
[2020-06-30] MEDS: FOLIC ACID 1 MG TABLET (FP) PO SCH (09:58)
[2020-06-30] MEDS ORDERED: FLU VACCINE (FLULAVAL) PF 60 MCG/0.5 ML SYRINGE 2020-2021 IM ONE (10:00)
[2020-06-30] MEDS: traZODone HCL 50 MG TABLET (FP) PO SCH (21:09)
[2020-06-30] MEDS: QUEtiapine FUMARATE 100 MG TABLET (FP) PO SCH (21:09)
[2020-06-30] MEDS: ATORVASTATIN CA 10 MG TABLET (FP) PO SCH (21:09)
[2020-06-30] MEDS: HEPARIN NA (PORCINE) 5,000 UNITS/ML 1ML VIAL SQ SCH (21:09)
[2020-07-01] MEDS: ACETAMINOPHEN 500 MG TABLET (FP) PO PRN ×3 (04:13→18:27)
[2020-07-01] MEDS: INSULIN (LEVEMIR) 100 UNITS/ML UNITS SQ SCH ×2 (06:36→17:03)
[2020-07-01] MEDS: INSULIN SLIDING SCALE (NOVOLOG) 1 VIAL SQ SCH ×4 (06:37→21:04)
[2020-07-01] MEDS: GABAPENTIN 300 MG CAPSULE PO SCH ×3 (06:38→21:03)
[2020-07-01] MEDS: ASPIRIN 81 MG CHEWABLE TABLETS PO SCH (09:11)
[2020-07-01] MEDS: HEPARIN NA (PORCINE) 5,000 UNITS/ML 1ML VIAL SQ SCH ×2 (09:11→21:02)
[2020-07-01] MEDS: FOLIC ACID 1 MG TABLET (FP) PO SCH (09:11)
[2020-07-01] MEDS: THIAMINE HCL 100 MG TABLET (FP) PO SCH (09:12)
[2020-07-01] MEDS: NICOTINE 21 MG/24 HOURS TOPICAL PATCH TD SCH (09:12)
[2020-07-01] MEDS: CITALOPRAM HYDROBROMIDE 20 MG TABLET PO SCH (09:12)
[2020-07-01] MEDS: FAMOTIDINE 20 MG TABLET PO SCH ×2 (09:13→21:03)
[2020-07-01] MEDS: PANTOPRAZOLE 40 MG TABLET PO SCH (09:13)
[2020-07-01] MEDS: RAMIPRIL 5 MG CAPSULE PO SCH (09:13)
[2020-07-01] MEDS: ATORVASTATIN CA 10 MG TABLET (FP) PO SCH (21:03)
[2020-07-01] MEDS: traZODone HCL 50 MG TABLET (FP) PO SCH (21:03)
[2020-07-01] MEDS: QUEtiapine FUMARATE 100 MG TABLET (FP) PO SCH (21:03)
[2020-07-02] MEDS: ACETAMINOPHEN 500 MG TABLET (FP) PO PRN (04:42)
[2020-07-02] MEDS: GABAPENTIN 300 MG CAPSULE PO SCH ×2 (05:07→14:00)
[2020-07-02] MEDS: INSULIN SLIDING SCALE (NOVOLOG) 1 VIAL SQ SCH ×3 (06:36→16:30)
[2020-07-02] MEDS: INSULIN (LEVEMIR) 100 UNITS/ML UNITS SQ SCH ×2 (06:36→16:30)
[2020-07-02 06:53] LABS: HEMATOCRIT 36.7 % (32.4-45.2); HEMOGLOBIN 11.7 GM/dL (10.7-15.3); MCH 28.2 pg (25.7-33.7); MCHC 31.8 g/dl (32.0-36.0); MEAN CELL VOLUME 88.4 fl (80-96); MEAN PLT VOLUME 8.2 fl (7.5-11.1); PLATELET COUNT 196 K/MM3 (134-434); RBC 4.15 M/mm3 (3.60-5.2); RDW 13.7 % (11.6-15.6); WHITE BLOOD COUNT 8.2 K/mm3 (4.0-10.0)
[2020-07-02 07:07] LABS: CALCIUM 8.5 mg/dL (8.5-10.1)
[2020-07-02 07:08] LABS: ALBUMIN 2.9 g/dl (3.4-5.0); BLOOD UREA NITROGEN 14.3 mg/dL (7-18)
[2020-07-02 07:11] LABS: CREATININE 0.7 mg/dL (0.55-1.3)
[2020-07-02 07:12] LABS: BILIRUBIN,TOTAL 0.5 mg/dL (0.2-1); TOT PROT 6.1 g/dl (6.4-8.2)
[2020-07-02] MEDS: RAMIPRIL 5 MG CAPSULE PO SCH ×2 (10:15→16:44)
[2020-07-02] MEDS: NICOTINE 21 MG/24 HOURS TOPICAL PATCH TD SCH (10:15)
[2020-07-02] MEDS: HEPARIN NA (PORCINE) 5,000 UNITS/ML 1ML VIAL SQ SCH (10:16)
[2020-07-02] MEDS: CITALOPRAM HYDROBROMIDE 20 MG TABLET PO SCH (10:16)
[2020-07-02] MEDS: FAMOTIDINE 20 MG TABLET PO SCH (10:16)
[2020-07-02] MEDS: PANTOPRAZOLE 40 MG TABLET PO SCH (10:16)
[2020-07-02] MEDS: THIAMINE HCL 100 MG TABLET (FP) PO SCH (10:16)
[2020-07-02] MEDS: FOLIC ACID 1 MG TABLET (FP) PO SCH (10:16)
[2020-07-02] MEDS: ASPIRIN 81 MG CHEWABLE TABLETS PO SCH (10:16)
[2020-07-02 10:43] VITALS: BP 107/54; PULSE 68; TEMP 98.2
== END 2020-07-02 17:20 | DRG 342 ==
LOC: JER 22:30 → JERBED 06-29 04:46 → J4S 06-30 01:08
PROVIDERS: ADMIT Internal Medicine; ATTEND Family Medicine
PROC: 0QSHXZZ Reposition Left Tibia, External Approach (ICD-10-PCS; principal; 2020-06-28)
DX: S82.852A Displaced trimalleolar fracture of left lower leg, initial encounter for closed fracture (principal); E78.5 Hyperlipidemia, unspecified; F10.10 Alcohol abuse, uncomplicated; F17.210 Nicotine dependence, cigarettes, uncomplicated; E11.649 Type 2 diabetes mellitus with hypoglycemia without coma; K21.9 Gastro-esophageal reflux disease without esophagitis; I10 Essential (primary) hypertension; A59.9 Trichomoniasis, unspecified; F14.10 Cocaine abuse, uncomplicated; R55 Syncope and collapse; F11.10 Opioid abuse, uncomplicated; I25.10 Atherosclerotic heart disease of native coronary artery without angina pectoris; I25.2 Old myocardial infarction; F39 Unspecified mood [affective] disorder; W18.30XA Fall on same level, unspecified, initial encounter; Y92.89 Other specified places as the place of occurrence of the external cause; Z86.73 Personal history of transient ischemic attack (TIA), and cerebral infarction without residual deficits
CPT/HCPCS: 36415; 70450-TC; 71046-TC-FY; 73590-TC-LT-FY; 73590-TC-RT-FY; 73610-TC-RT-FY; 73630-TC-RT-FY; 80053; 80061; 80307; 81003; 82550; 82553; 82962; 83036; 83721; 83735; 84100; 84443; 84484; 85025; 85027; 85610; 86850; 86900; 86901; 93005; 93010; 93306-TC; 93880-TC; 97116-GP; 97161-GP; 99291; C9803; G0008; J1644; Q2036; U0003

== ENCOUNTER → 2020-07-14 | Day surgery (SDC) | payer OTHER ==
[2020-07-12 13:28] VITALS: BMI 29.6
[~2020-07-14] MED LIST: BUPIVACAINE HCL 50 ML ONE; BUPIVACAINE HCL/PF 0.5% (5 MG/ML) 30 ML VIAL IJ ONE; DEXAMETHASONE SOD PHOSPHATE 4 MG/1 ML VIAL ONE; DEXAMETHASONE SOD PHOSPHATE/PF 10 MG/ML SDV ONE; INSULIN (NOVOLOG) ASPART 100 UNITS/ML 10ML VIAL SQ ONE; KETOROLAC TROMETHAMINE 30 MG/1 ML VIAL ONE; LACTATED RINGERS SOLUTION 1,000 ML IV SCH; MIDAZOLAM HCL 2 MG/2 ML SINGLE DOSE VIAL ONE; ONDANSETRON 4 MG/2 ML VIAL IVPUSH PRN; PROPOFOL 20 ML ONE; TRANEXAMIC ACID 1000 MG/10 ML VIAL ONE; ceFAZolin SODIUM 1 GM VIAL IVPB ONE; ceFAZolin SODIUM 1 GM VIAL ONE; oxyCODONE HCL 5 MG TABLET PO PRN
[2020-07-14 22:32] VITALS: BP 170/84; PULSE 64; TEMP 98.3
== END ==
LOC: FASU 08:16
PROVIDERS: ATTEND Orthopaedic Surgery Sports Medicine
PROC: 0QSJ04Z Reposition Right Fibula with Internal Fixation Device, Open Approach (ICD-10-PCS; principal; 2020-07-14 13:29)
DX: S82.841A Displaced bimalleolar fracture of right lower leg, initial encounter for closed fracture (principal); X58.XXXA Exposure to other specified factors, initial encounter; Y93.9 Activity, unspecified; Y92.9 Unspecified place or not applicable
CPT/HCPCS: 73610-TC-RT-FY; 82962; 84703; 94760

== ENCOUNTER 2021-05-12 09:45 | Emergency (ER) | payer OTHER ==
[2021-05-12] MEDS ORDERED: THIAMINE HCL 200 MG/2 ML VIAL IVPB ONE (10:09)
[2021-05-12] MEDS ORDERED: DEXTROSE 50%-WATER - 25 GM/50 ML VIAL IVPUSH PRN (10:10)
[2021-05-12 10:21] VITALS: BMI 23.6
[2021-05-12] MEDS ORDERED: THIAMINE HCL 200 MG/2 ML VIAL ONE ×2 (11:19→13:35)
[2021-05-12 12:05] LABS: BASO % 0.9 % (0-2.0); EOS % 1.3 % (0-4.5); HEMATOCRIT 43.2 % (32.4-45.2); HEMOGLOBIN 14.5 GM/dL (10.7-15.3); LYMPH % 26.6 % (8-40); MCH 29.9 pg (25.7-33.7); MCHC 33.5 g/dl (32.0-36.0); MEAN PLT VOLUME 8.2 fl (7.5-11.1); MONO % 6.2 % (3.8-10.2); PLATELET COUNT 240 10^3/uL (134-434); RBC 4.85 M/mm3 (3.60-5.2); RDW 13.9 % (11.6-15.6); WHITE BLOOD COUNT 7.4 K/mm3 (4.0-10.0)
[2021-05-12 12:13] LABS: VENOUS BASE EXCESS 1.4 mmol/L (-2-2); VENOUS O2 SATURATION 34.8 % (70-80); VENOUS PCO2 59.8 mmHg (38-52); VENOUS PH 7.308 (7.310-7.410)
[2021-05-12 12:30] LABS: CHLORIDE 100 mmol/L (98-107); SODIUM 134 mmol/L (136-145)
[2021-05-12 12:36] LABS: ALBUMIN 3.4 g/dl (3.4-5.0); BLOOD UREA NITROGEN 10.6 mg/dL (7-18); CALCIUM 8.7 mg/dL (8.5-10.1); CO2 28 mmol/L (21-32); GLUCOSE,RANDOM 240 mg/dL (74-106); MAGNESIUM 1.8 mg/dL (1.8-2.4)
[2021-05-12 12:39] LABS: SGPT/ALT 20 U/L (13-61)
[2021-05-12 12:40] LABS: CREATININE 0.8 mg/dL (0.55-1.3); PHOSPHOROUS 4.9 mg/dL (2.5-4.9); SGOT/AST 53 U/L (15-37)
[2021-05-12 12:41] LABS: BILIRUBIN,TOTAL 0.7 mg/dL (0.2-1)
[2021-05-12 12:42] LABS: ALK PHOS 82 U/L (45-117)
[2021-05-12 12:56] LABS: ANION GAP 6 MMOL/L (8-16)
[2021-05-12 14:05] LABS: CALCIUM 8.7 mg/dL (8.5-10.1)
[2021-05-12 14:06] LABS: BLOOD UREA NITROGEN 9.9 mg/dL (7-18)
[2021-05-12 14:09] LABS: CREATININE 0.9 mg/dL (0.55-1.3)
[2021-05-12 15:29] VITALS: BP 143/99; PULSE 74; TEMP 96.6
== END 2021-05-12 17:34 | disposition home or self-care (01) ==
LOC: JER 09:45
DX: E16.2 Hypoglycemia, unspecified (principal)
CPT/HCPCS: 36415; 80048; 80053; 82010; 82803; 82962; 83735; 84100; 84443; 85025; 93005; 93010; 99284-25; C9803; U0003; U0005

== ENCOUNTER 2021-09-13 09:46 | Inpatient (IN) | payer OTHER ==
[2021-09-13] MEDS ORDERED: NICOTINE 10 MG CARTRIDGE (INHALER) IH PRN (10:17)
[2021-09-13] MEDS ORDERED: MAGNESIUM HYDROX 2400MG/30ML ORAL SUSPENSION 30 ML CUP PO PRN (10:17)
[2021-09-13] MEDS ORDERED: MAG HYDROX/AL HYDROX/SIMETH 30 ML UNIT-DOSE CUP PO PRN (10:17)
[2021-09-13] MEDS ORDERED: IBUPROFEN 400 MG TABLET (FP) PO PRN (10:17)
[2021-09-13] MEDS ORDERED: P-EPHED 60MG/TRIPROLIDI 2.5MG TABLET PO PRN (10:17)
[2021-09-13] MEDS ORDERED: MAGNESIUM CITRATE 300 ML BOTTLE PO PRN (10:17)
[2021-09-13] MEDS ORDERED: LOPERAMIDE HCL 2 MG CAPSULE PO PRN (10:17)
[2021-09-13] MEDS ORDERED: guaiFENesin 200 MG/10 ML 10 ML UNIT-DOSE CUPS PO PRN (10:17)
[2021-09-13] MEDS ORDERED: ACETAMINOPHEN 325 MG TABLET (FP) PO PRN (10:17)
[2021-09-13 11:33] VITALS: BMI 22.5
[2021-09-13] MEDS: hydrOXYzine PAMOATE 25 MG CAPSULE (FP) PO SCH ×2 (15:43→17:16)
[2021-09-13] MEDS: NICOTINE 7 MG/24 HOURS TOPICAL PATCH TD SCH (15:44)
[2021-09-13] MEDS: INSULIN SLIDING SCALE (NOVOLOG) 1 VIAL SQ SCH ×2 (15:48→17:12)
[2021-09-13] MEDS: PRENATAL VITAMINS W/ FOLIC ACID TABLET (FP) PO SCH (15:48)
[2021-09-13] MEDS ORDERED: INSULIN (LEVEMIR) 100 UNITS/ML UNITS SQ SCH (16:30)
[2021-09-13] MEDS ORDERED: INSULIN (NOVOLOG) ASPART 100 UNITS/ML 10ML VIAL ONE ×2 (17:10→23:52)
[2021-09-13] MEDS: MELATONIN 5 MG TABLETS PO SCH (23:59)
[2021-09-13] MEDS: INSULIN (LEVEMIR) 100 UNITS/ML UNITS SQ SCH (23:59)
[2021-09-14] MEDS ORDERED: INSULIN (NOVOLOG) ASPART 100 UNITS/ML 10ML VIAL ONE ×4 (02:59→17:08)
[2021-09-14] MEDS: hydrOXYzine PAMOATE 25 MG CAPSULE (FP) PO SCH ×6 (06:56→21:49)
[2021-09-14] MEDS: INSULIN SLIDING SCALE (NOVOLOG) 1 VIAL SQ SCH ×5 (06:56→21:51)
[2021-09-14] MEDS: INSULIN (LEVEMIR) 100 UNITS/ML UNITS SQ SCH ×2 (11:32→21:51)
[2021-09-14] MEDS: PRENATAL VITAMINS W/ FOLIC ACID TABLET (FP) PO SCH (11:33)
[2021-09-14] MEDS: PANTOPRAZOLE 40 MG TABLET PO SCH (11:34)
[2021-09-14] MEDS: ATORVASTATIN CA 10 MG TABLET (FP) PO SCH (11:34)
[2021-09-14] MEDS: NICOTINE 7 MG/24 HOURS TOPICAL PATCH TD SCH (11:38)
[2021-09-14] MEDS: RAMIPRIL 5 MG CAPSULE PO SCH (11:56)
[2021-09-14 12:53] LABS: ALBUMIN 3.5 g/dl (3.4-5.0); BLOOD UREA NITROGEN 14.2 mg/dL (7-18); CALCIUM 9.4 mg/dL (8.5-10.1); CREATININE 0.7 mg/dL (0.55-1.3)
[2021-09-14 12:54] LABS: TOT PROT 6.8 g/dl (6.4-8.2)
[2021-09-14 12:55] LABS: BILIRUBIN,TOTAL 0.3 mg/dL (0.2-1)
[2021-09-14 13:07] LABS: HEMATOCRIT 43.4 % (32.4-45.2); HEMOGLOBIN 13.9 GM/dL (10.7-15.3); MCH 28.3 pg (25.7-33.7); MEAN CELL VOLUME 88.6 fl (80-96); MEAN PLT VOLUME 8.6 fl (7.5-11.1); PLATELET COUNT 165 10^3/uL (134-434); RDW 13.9 % (11.6-15.6); WHITE BLOOD COUNT 4.7 K/mm3 (4.0-10.0)
[2021-09-14 13:11] LABS: SYPHILIS W/ RPR CONF NON-REACTIVE (NONREACTIVE)
[2021-09-14] MEDS: THIAMINE HCL 100 MG TABLET (FP) PO SCH ×2 (21:49)
[2021-09-14] MEDS: MELATONIN 5 MG TABLETS PO SCH (21:49)
[2021-09-15] MEDS: hydrOXYzine PAMOATE 25 MG CAPSULE (FP) PO SCH ×2 (06:03→10:19)
[2021-09-15] MEDS ORDERED: INSULIN (NOVOLOG) ASPART 100 UNITS/ML 10ML VIAL ONE ×3 (06:40→17:06)
[2021-09-15] MEDS: INSULIN SLIDING SCALE (NOVOLOG) 1 VIAL SQ SCH ×4 (06:41→21:07)
[2021-09-15] MEDS: ATORVASTATIN CA 10 MG TABLET (FP) PO SCH (10:19)
[2021-09-15] MEDS: PANTOPRAZOLE 40 MG TABLET PO SCH (10:19)
[2021-09-15] MEDS: PRENATAL VITAMINS W/ FOLIC ACID TABLET (FP) PO SCH (10:19)
[2021-09-15] MEDS: INSULIN (LEVEMIR) 100 UNITS/ML UNITS SQ SCH ×2 (10:20→21:07)
[2021-09-15] MEDS: RAMIPRIL 5 MG CAPSULE PO SCH (10:20)
[2021-09-15] MEDS: NICOTINE 7 MG/24 HOURS TOPICAL PATCH TD SCH (11:50)
[2021-09-15] MEDS ORDERED: COLLOIDAL OATMEAL 1 BAR EACH TP PRN (12:02)
[2021-09-15] MEDS: hydrOXYzine PAMOATE 25 MG CAPSULE (FP) PO PRN (21:10)
[2021-09-15] MEDS: THIAMINE HCL 100 MG TABLET (FP) PO SCH (21:10)
[2021-09-15] MEDS: MELATONIN 5 MG TABLETS PO SCH (21:10)
[2021-09-16 00:10] LABS: SARS-CoV-2 NAA Not Detected (Not Detected)
[2021-09-16] MEDS: INSULIN SLIDING SCALE (NOVOLOG) 1 VIAL SQ SCH ×4 (06:44→17:01)
[2021-09-16] MEDS ORDERED: INSULIN SLIDING SCALE (NOVOLOG) 1 VIAL SQ SCH (07:00)
[2021-09-16] MEDS ORDERED: INSULIN (NOVOLOG) ASPART 100 UNITS/ML 10ML VIAL ONE (10:44)
[2021-09-16] MEDS: NICOTINE 7 MG/24 HOURS TOPICAL PATCH TD SCH (10:46)
[2021-09-16] MEDS: PANTOPRAZOLE 40 MG TABLET PO SCH (10:46)
[2021-09-16] MEDS: ATORVASTATIN CA 10 MG TABLET (FP) PO SCH (10:46)
[2021-09-16] MEDS: PRENATAL VITAMINS W/ FOLIC ACID TABLET (FP) PO SCH (10:46)
[2021-09-16] MEDS: INSULIN (LEVEMIR) 100 UNITS/ML UNITS SQ SCH ×2 (10:46→21:51)
[2021-09-16] MEDS: RAMIPRIL 5 MG CAPSULE PO SCH (10:46)
[2021-09-16 17:55] LABS: EPI CELLS 14 /uL (0-25.1); HYALINE CASTS 1 /uL (0-3.1); URINE APPEARANCE CLEAR; URINE BACTERIA 377 /uL (0-1359); URINE BILIRUBIN NEGATIVE (NEGATIVE); URINE COLOR YELLOW; URINE GLUCOSE (UA) NEGATIVE (NEGATIVE); URINE KETONE NEGATIVE (NEGATIVE); URINE LEUK ESTERASE 1+ (NEGATIVE); URINE NITRITE NEGATIVE (NEGATIVE); URINE PROTEIN NEGATIVE (NEGATIVE); URINE RBC 5 /uL (0-23.9); URINE UROBILINOGEN 0.2 mg/dL (0.2-1.0); URINE WBC 129 /uL (0-25.8)
[2021-09-16] MEDS: hydrOXYzine PAMOATE 25 MG CAPSULE (FP) PO PRN (21:52)
[2021-09-16] MEDS: MELATONIN 5 MG TABLETS PO SCH (21:52)
[2021-09-16] MEDS: THIAMINE HCL 100 MG TABLET (FP) PO SCH (21:52)
[2021-09-17] MEDS ORDERED: INSULIN (NOVOLOG) ASPART 100 UNITS/ML 10ML VIAL ONE (06:27)
[2021-09-17] MEDS: INSULIN SLIDING SCALE (NOVOLOG) 1 VIAL SQ SCH ×3 (06:28→16:54)
[2021-09-17] MEDS: PRENATAL VITAMINS W/ FOLIC ACID TABLET (FP) PO SCH (09:54)
[2021-09-17] MEDS: ATORVASTATIN CA 10 MG TABLET (FP) PO SCH (09:55)
[2021-09-17] MEDS: PANTOPRAZOLE 40 MG TABLET PO SCH (09:55)
[2021-09-17] MEDS: NICOTINE 7 MG/24 HOURS TOPICAL PATCH TD SCH (09:56)
[2021-09-17] MEDS: RAMIPRIL 5 MG CAPSULE PO SCH (09:56)
[2021-09-17] MEDS: INSULIN (LEVEMIR) 100 UNITS/ML UNITS SQ SCH ×2 (10:30→22:06)
[2021-09-17] MEDS: hydrOXYzine PAMOATE 25 MG CAPSULE (FP) PO PRN (22:08)
[2021-09-17] MEDS: MELATONIN 5 MG TABLETS PO SCH (22:08)
[2021-09-17] MEDS: THIAMINE HCL 100 MG TABLET (FP) PO SCH (22:08)
[2021-09-18] MEDS: INSULIN SLIDING SCALE (NOVOLOG) 1 VIAL SQ SCH ×2 (06:28→11:54)
[2021-09-18 07:05] VITALS: BP 143/84; PULSE 64; TEMP 98
[2021-09-18] MEDS: PRENATAL VITAMINS W/ FOLIC ACID TABLET (FP) PO SCH (10:39)
[2021-09-18] MEDS: PANTOPRAZOLE 40 MG TABLET PO SCH (10:39)
[2021-09-18] MEDS: NICOTINE 7 MG/24 HOURS TOPICAL PATCH TD SCH (10:40)
[2021-09-18] MEDS: ATORVASTATIN CA 10 MG TABLET (FP) PO SCH (10:40)
[2021-09-18] MEDS: INSULIN (LEVEMIR) 100 UNITS/ML UNITS SQ SCH (10:42)
[2021-09-18] MEDS: RAMIPRIL 5 MG CAPSULE PO SCH (10:43)
[2021-09-18] MEDS ORDERED: INSULIN (NOVOLOG) ASPART 100 UNITS/ML 10ML VIAL ONE (11:30)
== END 2021-09-18 15:15 | disposition left against medical advice (07) | DRG 770 ==
LOC: YASAS 09:46 → Y5N 14:49
PROVIDERS: ADMIT Allergy & Immunology; ATTEND Allergy & Immunology
PROC: HZ42ZZZ Group Counseling for Substance Abuse Treatment, Cognitive-Behavioral (ICD-10-PCS; principal; 2021-09-13)
DX: F10.20 Alcohol dependence, uncomplicated (principal); F14.20 Cocaine dependence, uncomplicated; F17.210 Nicotine dependence, cigarettes, uncomplicated; F39 Unspecified mood [affective] disorder; F43.10 Post-traumatic stress disorder, unspecified; G62.9 Polyneuropathy, unspecified; I10 Essential (primary) hypertension; K21.9 Gastro-esophageal reflux disease without esophagitis; E78.00 Pure hypercholesterolemia, unspecified; E11.9 Type 2 diabetes mellitus without complications; Z79.4 Long term (current) use of insulin
CPT/HCPCS: 36415; 80053; 81003; 81025; 82962; 85027; 86780; 86803; C9803; U0003; U0005

== ENCOUNTER 2022-02-13 09:53 | Inpatient (IN) | payer OTHER ==
[2022-02-13 12:20] LABS: PH,URINE 5.5 (5.0-8.0); URINE APPEARANCE CLEAR; URINE BILIRUBIN NEGATIVE (NEGATIVE); URINE COLOR YELLOW; URINE GLUCOSE (UA) 3+ (NEGATIVE); URINE KETONE NEGATIVE (NEGATIVE); URINE LEUK ESTERASE NEGATIVE (NEGATIVE); URINE NITRITE NEGATIVE (NEGATIVE); URINE PROTEIN NEGATIVE (NEGATIVE); URINE UROBILINOGEN 0.2 mg/dL (0.2-1.0)
[2022-02-13] MEDS ORDERED: SODIUM CHLORIDE 0.9% 500 ML INFUS.BAG IV ONE (12:38)
[2022-02-13 12:46] LABS: BASO % 0.9 % (0-2.0); HEMATOCRIT 42.4 % (32.4-45.2); HEMOGLOBIN 13.9 GM/dL (10.7-15.3); LYMPH % 43.9 % (8-40); MCH 29.3 pg (25.7-33.7); MCHC 32.7 g/dl (32.0-36.0); MEAN CELL VOLUME 89.4 fl (80-96); MEAN PLT VOLUME 8.8 fl (7.5-11.1); MONO % 12.2 % (3.8-10.2); PLATELET COUNT 173 10^3/uL (134-434); RBC 4.74 M/mm3 (3.60-5.2); WHITE BLOOD COUNT 6.9 K/mm3 (4.0-10.0)
[2022-02-13 13:07] LABS: CHLORIDE 101 mmol/L (98-107); SODIUM 137 mmol/L (136-145)
[2022-02-13 13:08] LABS: CALCIUM 9.4 mg/dL (8.5-10.1)
[2022-02-13 13:09] LABS: ANION GAP 9 MMOL/L (8-16); BLOOD UREA NITROGEN 13.6 mg/dL (7-18); CO2 27 mmol/L (21-32)
[2022-02-13 13:12] LABS: SGOT/AST 23 U/L (15-37); SGPT/ALT 29 U/L (13-61)
[2022-02-13 13:13] LABS: TOT PROT 7.9 g/dl (6.4-8.2)
[2022-02-13 13:14] LABS: BILIRUBIN,TOTAL 0.6 mg/dL (0.2-1)
[2022-02-13 13:15] LABS: ALK PHOS 135 U/L (45-117)
[2022-02-13 13:16] LABS: GLUCOSE,RANDOM 498 mg/dL (74-106)
[2022-02-13] MEDS ORDERED: INSULIN REGULAR HUMAN 100 UNITS/ML *VIAL SQ ONE (14:40)
[2022-02-13] MEDS ORDERED: INSULIN (LEVEMIR) 100 UNITS/ML UNITS SQ ONE ×2 (14:40→14:56)
[2022-02-13] MEDS ORDERED: INSULIN REGULAR HUMAN 100 UNITS/ML *VIAL IVPUSH ONE (15:40)
[2022-02-13] MEDS ORDERED: SODIUM CHLORIDE 1,000 ML IV SCH (16:30)
[2022-02-13 16:55] LABS: VENOUS BASE EXCESS 1.4 mmol/L (-2-2); VENOUS PCO2 43.4 mmHg (38-52); VENOUS PH 7.403 (7.310-7.410)
[2022-02-13] MEDS ORDERED: ACETAMINOPHEN 325 MG TABLET (FP) PO PRN (19:50)
[2022-02-13] MEDS ORDERED: BEBTELOVIMAB (EUA) 175 MG/2 ML VIAL IVPUSH ONE (22:19)
[2022-02-14] MEDS: INSULIN SLIDING SCALE (NOVOLOG) 1 VIAL SQ SCH ×4 (06:00→22:51)
[2022-02-14 07:27] LABS: BLOOD UREA NITROGEN 12.8 mg/dL (7-18); CALCIUM 8.5 mg/dL (8.5-10.1); MAGNESIUM 1.7 mg/dL (1.8-2.4)
[2022-02-14 07:28] LABS: ALBUMIN 3.3 g/dl (3.4-5.0)
[2022-02-14 07:30] LABS: CREATININE 0.8 mg/dL (0.55-1.3); PHOSPHOROUS 3.9 mg/dL (2.5-4.9)
[2022-02-14 07:32] LABS: BILIRUBIN,TOTAL 0.3 mg/dL (0.2-1); TOT PROT 6.8 g/dl (6.4-8.2)
[2022-02-14 08:37] LABS: BASO % 0.5 % (0-2.0); EOS % 4.4 % (0-4.5); HEMATOCRIT 42.8 % (32.4-45.2); HEMOGLOBIN 14.2 GM/dL (10.7-15.3); LYMPH % 52.5 % (8-40); MCH 29.2 pg (25.7-33.7); MCHC 33.2 g/dl (32.0-36.0); MEAN PLT VOLUME 8.5 fl (7.5-11.1); MONO % 9.2 % (3.8-10.2); NEUT % 33.4 % (42.8-82.8); PLATELET COUNT 152 10^3/uL (134-434); RBC 4.86 M/mm3 (3.60-5.2); RDW 13.5 % (11.6-15.6); WHITE BLOOD COUNT 6.2 K/mm3 (4.0-10.0)
[2022-02-14] MEDS ORDERED: THIAMINE HCL 100 MG TABLET (FP) PO SCH (10:00)
[2022-02-14] MEDS ORDERED: ENOXAPARIN NA (PORCINE) 40 MG/0.4 ML DISP.SYRIN SQ ONE (10:04)
[2022-02-14] MEDS ORDERED: RAMIPRIL 5 MG CAPSULE ONE (10:04)
[2022-02-14] MEDS ORDERED: PANTOPRAZOLE 40 MG TABLET PO ONE (10:04)
[2022-02-14] MEDS ORDERED: NICOTINE 21 MG/24 HOURS TOPICAL PATCH ONE (10:04)
[2022-02-14] MEDS ORDERED: THIAMINE HCL 100 MG TABLET (FP) ONE (10:04)
[2022-02-14] MEDS: RAMIPRIL 5 MG CAPSULE PO SCH (10:16)
[2022-02-14] MEDS: PANTOPRAZOLE 40 MG TABLET PO SCH (10:16)
[2022-02-14] MEDS: INSULIN (LEVEMIR) 100 UNITS/ML UNITS SQ SCH ×2 (10:16→22:54)
[2022-02-14] MEDS: NICOTINE 21 MG/24 HOURS TOPICAL PATCH TD SCH (10:16)
[2022-02-14] MEDS: ENOXAPARIN NA (PORCINE) 40 MG/0.4 ML DISP.SYRIN SQ SCH (10:16)
[2022-02-14] MEDS ORDERED: MAGNESIUM SULF 50% (8.12 MEQ/2 ML-1 GM VIAL) IVPB ONE (10:50)
[2022-02-14] MEDS ORDERED: MAGNESIUM SULFATE IN WATER 2 GM/50 ML IVPB IVPB ONE (12:02)
[2022-02-14] MEDS ORDERED: SODIUM CHLORIDE 1,000 ML IV SCH (12:41)
[2022-02-14] MEDS: metoPROLOL SUCCINATE 25 MG TAB.SR.24H (FP) PO SCH (13:00)
[2022-02-14] MEDS ORDERED: metoPROLOL SUCCINATE 25 MG TAB.SR.24H (FP) PO ONE (16:03)
[2022-02-14 20:17] VITALS: BMI 22.9
[2022-02-14] MEDS ORDERED: ATORVASTATIN CA 10 MG TABLET (FP) PO SCH (22:00)
[2022-02-14] MEDS: traZODone HCL 50 MG TABLET (FP) PO SCH (22:44)
[2022-02-14] MEDS: ATORVASTATIN CA 40 MG TABLET (FP) PO SCH (22:44)
[2022-02-15] MEDS: INSULIN SLIDING SCALE (NOVOLOG) 1 VIAL SQ SCH ×4 (07:39→22:29)
[2022-02-15] MEDS ORDERED: SODIUM CHLORIDE 1,000 ML IV SCH (08:56)
[2022-02-15] MEDS: NICOTINE 21 MG/24 HOURS TOPICAL PATCH TD SCH (11:32)
[2022-02-15] MEDS: PANTOPRAZOLE 40 MG TABLET PO SCH (11:32)
[2022-02-15] MEDS: CITALOPRAM HYDROBROMIDE 20 MG TABLET PO SCH (11:32)
[2022-02-15] MEDS: ASPIRIN 81 MG CHEWABLE TABLETS PO SCH (11:32)
[2022-02-15] MEDS: metoPROLOL SUCCINATE 25 MG TAB.SR.24H (FP) PO SCH (11:32)
[2022-02-15] MEDS: INSULIN (LEVEMIR) 100 UNITS/ML UNITS SQ SCH ×2 (11:33→22:29)
[2022-02-15] MEDS: ENOXAPARIN NA (PORCINE) 40 MG/0.4 ML DISP.SYRIN SQ SCH (11:34)
[2022-02-15 13:18] LABS: HEMATOCRIT 40.3 % (32.4-45.2); HEMOGLOBIN 13.2 GM/dL (10.7-15.3); LYMPH % 57.9 % (8-40); MCH 29.1 pg (25.7-33.7); MCHC 32.8 g/dl (32.0-36.0); MEAN CELL VOLUME 88.6 fl (80-96); MEAN PLT VOLUME 8.7 fl (7.5-11.1); MONO % 6.1 % (3.8-10.2); PLATELET COUNT 198 10^3/uL (134-434); RBC 4.55 M/mm3 (3.60-5.2); RDW 13.2 % (11.6-15.6); WHITE BLOOD COUNT 6.2 K/mm3 (4.0-10.0)
[2022-02-15 13:44] LABS: CHLORIDE 101 mmol/L (98-107); SODIUM 136 mmol/L (136-145)
[2022-02-15 13:50] LABS: ALBUMIN 3.1 g/dl (3.4-5.0); CALCIUM 9.1 mg/dL (8.5-10.1)
[2022-02-15 13:51] LABS: ANION GAP 6 MMOL/L (8-16); BLOOD UREA NITROGEN 16.5 mg/dL (7-18); CO2 29 mmol/L (21-32); GLUCOSE,RANDOM 355 mg/dL (74-106); MAGNESIUM 1.7 mg/dL (1.8-2.4)
[2022-02-15 13:53] LABS: SGPT/ALT 21 U/L (13-61)
[2022-02-15 13:54] LABS: CREATININE 0.8 mg/dL (0.55-1.3); SGOT/AST 16 U/L (15-37)
[2022-02-15 13:55] LABS: BILIRUBIN,TOTAL 0.3 mg/dL (0.2-1); TOT PROT 6.7 g/dl (6.4-8.2)
[2022-02-15 13:56] LABS: ALK PHOS 96 U/L (45-117)
[2022-02-15] MEDS: MAGNESIUM SULF 50% (8.12 MEQ/2 ML-1 GM VIAL) IVPB ONE ×2 (18:04→18:26)
[2022-02-15] MEDS ORDERED: MAGNESIUM SULF 50% (8.12 MEQ/2 ML-1 GM VIAL) IVPB ONE (18:15)
[2022-02-15] MEDS: RAMIPRIL 5 MG CAPSULE PO SCH (18:45)
[2022-02-15] MEDS: ATORVASTATIN CA 40 MG TABLET (FP) PO SCH (22:29)
[2022-02-15] MEDS: traZODone HCL 50 MG TABLET (FP) PO SCH (22:29)
[2022-02-16] MEDS: INSULIN (LEVEMIR) 100 UNITS/ML UNITS SQ SCH (06:44)
[2022-02-16] MEDS: INSULIN SLIDING SCALE (NOVOLOG) 1 VIAL SQ SCH ×2 (06:45→11:17)
[2022-02-16] MEDS: NICOTINE 21 MG/24 HOURS TOPICAL PATCH TD SCH (09:38)
[2022-02-16] MEDS: metoPROLOL SUCCINATE 25 MG TAB.SR.24H (FP) PO SCH (09:38)
[2022-02-16] MEDS: CITALOPRAM HYDROBROMIDE 20 MG TABLET PO SCH (09:38)
[2022-02-16] MEDS: ASPIRIN 81 MG CHEWABLE TABLETS PO SCH (09:38)
[2022-02-16] MEDS: PANTOPRAZOLE 40 MG TABLET PO SCH (09:38)
[2022-02-16] MEDS: ENOXAPARIN NA (PORCINE) 40 MG/0.4 ML DISP.SYRIN SQ SCH (09:39)
[2022-02-16 11:51] LABS: HEMOGLOBIN 12.5 GM/dL (10.7-15.3); MCH 28.8 pg (25.7-33.7); MCHC 32.8 g/dl (32.0-36.0); MEAN CELL VOLUME 87.6 fl (80-96); MEAN PLT VOLUME 8.9 fl (7.5-11.1); PLATELET COUNT 187 10^3/uL (134-434); RBC 4.34 M/mm3 (3.60-5.2); RDW 13.2 % (11.6-15.6); WHITE BLOOD COUNT 5.1 K/mm3 (4.0-10.0)
[2022-02-16] MEDS: RAMIPRIL 5 MG CAPSULE PO SCH (11:52)
[2022-02-16 12:23] LABS: CHLORIDE 106 mmol/L (98-107); SODIUM 140 mmol/L (136-145)
[2022-02-16 12:30] LABS: CALCIUM 8.5 mg/dL (8.5-10.1)
[2022-02-16 12:31] LABS: ALBUMIN 2.9 g/dl (3.4-5.0); ANION GAP 5 MMOL/L (8-16); BLOOD UREA NITROGEN 14.6 mg/dL (7-18); CO2 30 mmol/L (21-32); GLUCOSE,RANDOM 198 mg/dL (74-106); MAGNESIUM 1.6 mg/dL (1.8-2.4); PHOSPHOROUS 3.7 mg/dL (2.5-4.9); SGOT/AST 22 U/L (15-37)
[2022-02-16 12:32] LABS: BILIRUBIN,TOTAL 0.3 mg/dL (0.2-1)
[2022-02-16 12:33] LABS: ALK PHOS 91 U/L (45-117); TOT PROT 5.9 g/dl (6.4-8.2)
[2022-02-16 12:34] LABS: CREATININE 0.7 mg/dL (0.55-1.3); SGPT/ALT 21 U/L (13-61)
[2022-02-16 13:53] LABS: ANISOCYTOSIS 1+; MACROCYTOSIS 0
[2022-02-16 13:56] VITALS: BP 141/75; PULSE 65; RESP 18; TEMP 97.4
== END 2022-02-16 15:23 | disposition left against medical advice (07) | DRG 420 ==
LOC: JER 09:53 → JERBED 18:06 → J5S 02-14 18:03
PROVIDERS: ADMIT Hospitalist
DX: E11.65 Type 2 diabetes mellitus with hyperglycemia (principal); U07.1 COVID-19; E78.5 Hyperlipidemia, unspecified; F12.90 Cannabis use, unspecified, uncomplicated; F14.90 Cocaine use, unspecified, uncomplicated; I10 Essential (primary) hypertension; R35.0 Frequency of micturition; S93.31 Subluxation and dislocation of tarsal joint; F43.10 Post-traumatic stress disorder, unspecified; R30.0 Dysuria; I25.2 Old myocardial infarction; Z59.00 Homelessness unspecified; Z86.73 Personal history of transient ischemic attack (TIA), and cerebral infarction without residual deficits; X58.XXXA Exposure to other specified factors, initial encounter; Y93.9 Activity, unspecified; Y92.9 Unspecified place or not applicable
CPT/HCPCS: 0241U-QW; 36415; 71045-TC-FY; 73610-TC-RT-FY; 73630-TC-RT-FY; 80053; 80061; 81003; 82010; 82803; 82962; 83036; 83735; 84100; 84443; 85025; 85027; 86140; 87086; 93005; 93010; 99281-25; 99285-25

== ENCOUNTER 2022-02-19 00:17 | Inpatient (IN) | payer OTHER ==
[2022-02-19] MEDS ORDERED: SODIUM CHLORIDE 0.9% 500 ML INFUS.BAG IV ONE (00:32)
[2022-02-19] MEDS ORDERED: ACETAMINOPHEN 1000 MG/100 ML BAG IVPB ONE (00:47)
[2022-02-19] MEDS ORDERED: FAMOTIDINE 20 MG/50 ML IVPB 20 MG/50 ML MG IVPB ONE ×2 (00:47→00:55)
[2022-02-19] MEDS ORDERED: ONDANSETRON 4 MG/2 ML VIAL IVPUSH ONE (00:47)
[2022-02-19] MEDS ORDERED: ONDANSETRON 4 MG/2 ML VIAL ONE (00:54)
[2022-02-19] MEDS ORDERED: ACETAMINOPHEN INJECTION 100 ML IVPB ONE (00:54)
[2022-02-19 02:16] LABS: BASO % 0.9 % (0-2.0); EOS % 0.9 % (0-4.5); HEMATOCRIT 40.1 % (32.4-45.2); HEMOGLOBIN 13.3 GM/dL (10.7-15.3); MCH 29.4 pg (25.7-33.7); MCHC 33.1 g/dl (32.0-36.0); MEAN CELL VOLUME 88.8 fl (80-96); MEAN PLT VOLUME 8.7 fl (7.5-11.1); MONO % 5.8 % (3.8-10.2); NEUT % 66.4 % (42.8-82.8); PLATELET COUNT 196 10^3/uL (134-434); RBC 4.52 M/mm3 (3.60-5.2); RDW 14.1 % (11.6-15.6)
[2022-02-19 02:24] LABS: INR 1.09 (0.83-1.09); PROTHROMBIN TIME (PATIENT) 12.5 SEC (9.7-13.0)
[2022-02-19 02:27] LABS: ACTIVATED PTT 35.3 SECONDS (25.2-36.5)
[2022-02-19 02:35] LABS: CHLORIDE 93 mmol/L (98-107); SODIUM 132 mmol/L (136-145)
[2022-02-19 02:38] LABS: ANION GAP 15 MMOL/L (8-16); CALCIUM 9.6 mg/dL (8.5-10.1); CO2 25 mmol/L (21-32); LIPASE 45 U/L (73-393)
[2022-02-19 02:41] LABS: CREATININE 1.1 mg/dL (0.55-1.3); SGOT/AST 37 U/L (15-37); SGPT/ALT 30 U/L (13-61)
[2022-02-19 02:42] LABS: BILIRUBIN,TOTAL 0.8 mg/dL (0.2-1)
[2022-02-19 02:44] LABS: ALK PHOS 109 U/L (45-117)
[2022-02-19] MEDS ORDERED: INSULIN REGULAR HUMAN 100 UNITS/ML *VIAL SQ ONE (02:50)
[2022-02-19 03:06] LABS: ALBUMIN 4.3 g/dl (3.4-5.0); GLUCOSE,RANDOM 442 mg/dL (74-106); TOT PROT 8.1 g/dl (6.4-8.2)
[2022-02-19 03:14] LABS: VENOUS BASE EXCESS -3.5 mmol/L (-2-2); VENOUS O2 SATURATION 41.2 % (70-80); VENOUS PCO2 56.9 mmHg (38-52); VENOUS PH 7.258 (7.310-7.410)
[2022-02-19 04:25] LABS: EPI CELLS 36 /uL (0-25.1); HYALINE CASTS 0 /uL (0-3.1); URINE APPEARANCE CLOUDY; URINE BACTERIA 950 /uL (0-1359); URINE BILIRUBIN NEGATIVE (NEGATIVE); URINE COLOR YELLOW; URINE GLUCOSE (UA) 3+ (NEGATIVE); URINE KETONE 3+ (NEGATIVE); URINE LEUK ESTERASE 1+ (NEGATIVE); URINE NITRITE NEGATIVE (NEGATIVE); URINE PROTEIN NEGATIVE (NEGATIVE); URINE RBC 7 /uL (0-23.9); URINE UROBILINOGEN 0.2 mg/dL (0.2-1.0); URINE WBC 200 /uL (0-25.8)
[2022-02-19] MEDS ORDERED: SODIUM CHLORIDE 1,000 ML IV STA (04:58)
[2022-02-19] MEDS: INSULIN SLIDING SCALE (NOVOLOG) 1 VIAL SQ SCH ×4 (07:00→22:36)
[2022-02-19] MEDS: HEPARIN NA (PORCINE) 5,000 UNITS/ML 1ML VIAL SQ SCH ×3 (08:45→22:36)
[2022-02-19] MEDS: CEFTRIAXONE 1 GM in DEXTROSE 5%-WATER - 50 ML IVPB SCH (09:19)
[2022-02-19] MEDS: FAMOTIDINE 20 MG/50 ML IVPB 20 MG/50 ML MG IVPB SCH ×2 (09:19→22:37)
[2022-02-19 10:12] LABS: BASO % 1.2 % (0-2.0); EOS % 2.8 % (0-4.5); HEMATOCRIT 41.5 % (32.4-45.2); HEMOGLOBIN 13.7 GM/dL (10.7-15.3); LYMPH % 37.7 % (8-40); MCH 29.3 pg (25.7-33.7); MEAN CELL VOLUME 88.7 fl (80-96); MEAN PLT VOLUME 8.7 fl (7.5-11.1); MONO % 8.6 % (3.8-10.2); NEUT % 49.7 % (42.8-82.8); PLATELET COUNT 169 10^3/uL (134-434); RBC 4.68 M/mm3 (3.60-5.2); WHITE BLOOD COUNT 9.9 K/mm3 (4.0-10.0)
[2022-02-19 10:23] LABS: MAGNESIUM 1.8 mg/dL (1.8-2.4)
[2022-02-19 10:24] LABS: CALCIUM 9.1 mg/dL (8.5-10.1)
[2022-02-19 10:25] LABS: ALBUMIN 3.7 g/dl (3.4-5.0); BLOOD UREA NITROGEN 18.1 mg/dL (7-18)
[2022-02-19 10:27] LABS: CREATININE 0.8 mg/dL (0.55-1.3)
[2022-02-19 10:28] LABS: PHOSPHOROUS 4.4 mg/dL (2.5-4.9); TOT PROT 7.1 g/dl (6.4-8.2)
[2022-02-19 10:29] LABS: BILIRUBIN,TOTAL 0.6 mg/dL (0.2-1)
[2022-02-19 10:58] LABS: VENOUS BASE EXCESS -4.2 mmol/L (-2-2); VENOUS PCO2 51.7 mmHg (38-52); VENOUS PH 7.27 (7.310-7.410)
[2022-02-19 11:36] VITALS: RESP 18
[2022-02-19 23:25] VITALS: BMI 21.9
[2022-02-20] MEDS: INSULIN SLIDING SCALE (NOVOLOG) 1 VIAL SQ SCH ×2 (06:22→12:06)
[2022-02-20] MEDS: HEPARIN NA (PORCINE) 5,000 UNITS/ML 1ML VIAL SQ SCH (06:22)
[2022-02-20] MEDS ORDERED: ALBUTEROL SO4 2.5/IPRATROPIUM 0.5 INH SOL 3 ML VIAL.NEB. NEB PRN (08:31)
[2022-02-20] MEDS ORDERED: DEXTROSE 5%-WATER - 50 ML IVPB ONE (09:44)
[2022-02-20] MEDS ORDERED: cefTRIAXone SODIUM 1 GM VIAL ONE (09:44)
[2022-02-20] MEDS: CEFTRIAXONE 1 GM in DEXTROSE 5%-WATER - 50 ML IVPB SCH (09:49)
[2022-02-20] MEDS: FAMOTIDINE 20 MG/50 ML IVPB 20 MG/50 ML MG IVPB SCH (09:50)
[2022-02-20 09:51] LABS: BASO % 1.3 % (0-2.0); EOS % 3.2 % (0-4.5); HEMATOCRIT 40.9 % (32.4-45.2); HEMOGLOBIN 13.7 GM/dL (10.7-15.3); LYMPH % 56.4 % (8-40); MCH 29.1 pg (25.7-33.7); MCHC 33.4 g/dl (32.0-36.0); MEAN CELL VOLUME 87.2 fl (80-96); MEAN PLT VOLUME 8.1 fl (7.5-11.1); MONO % 7.2 % (3.8-10.2); NEUT % 31.9 % (42.8-82.8); PLATELET COUNT 241 10^3/uL (134-434); RBC 4.69 M/mm3 (3.60-5.2); RDW 13.9 % (11.6-15.6); WHITE BLOOD COUNT 7.9 K/mm3 (4.0-10.0)
[2022-02-20] MEDS ORDERED: INSULIN (LEVEMIR) 100 UNITS/ML UNITS SQ SCH ×2 (10:00)
[2022-02-20] MEDS ORDERED: LISINOPRIL 10 MG TABLET PO SCH (10:00)
[2022-02-20 11:53] LABS: CALCIUM 9.4 mg/dL (8.5-10.1)
[2022-02-20 11:54] LABS: ALBUMIN 3.7 g/dl (3.4-5.0); BLOOD UREA NITROGEN 16.9 mg/dL (7-18)
[2022-02-20 11:58] LABS: BILIRUBIN,TOTAL 0.5 mg/dL (0.2-1); TOT PROT 7.1 g/dl (6.4-8.2)
[2022-02-20 14:06] VITALS: BP 107/57; PULSE 81; TEMP 98.1
== END 2022-02-20 14:41 | disposition home or self-care (01) | DRG 420 ==
LOC: JER 00:17 → JERBED 04:27 → OBSVTOIN 12:37 → J5S 21:13
PROVIDERS: ADMIT Internal Medicine
DX: E10.65 Type 1 diabetes mellitus with hyperglycemia (principal); I10 Essential (primary) hypertension; E78.5 Hyperlipidemia, unspecified; E86.0 Dehydration; E87.5 Hyperkalemia; E87.4 Mixed disorder of acid-base balance; E87.1 Hypo-osmolality and hyponatremia; M25.571 Pain in right ankle and joints of right foot; F31.9 Bipolar disorder, unspecified; F39 Unspecified mood [affective] disorder; Z86.73 Personal history of transient ischemic attack (TIA), and cerebral infarction without residual deficits; I25.2 Old myocardial infarction; Z59.00 Homelessness unspecified; Z91.14 Patient's other noncompliance with medication regimen
CPT/HCPCS: 36415; 71045-TC-FY; 80053; 80061; 81003; 82010; 82803; 82962; 83036; 83690; 83735; 84100; 84484; 85025; 85379; 85610; 85730; 86140; 87040; 87086; 93005; 93010; 99285-25; C9803-CS; G0378; J1644; U0003; U0005

== ENCOUNTER 2022-02-22 00:36 | Inpatient (IN) | payer OTHER ==
[2022-02-22] MEDS ORDERED: SODIUM CHLORIDE 1,000 ML IV STA (00:57)
[2022-02-22] MEDS ORDERED: ONDANSETRON 4 MG/2 ML VIAL IVPUSH ONE ×2 (01:08→19:50)
[2022-02-22] MEDS ORDERED: ONDANSETRON 4 MG/2 ML VIAL ONE (01:46)
[2022-02-22 01:58] LABS: BASO % 0.8 % (0-2.0); EOS % 0.2 % (0-4.5); HEMATOCRIT 40.6 % (32.4-45.2); HEMOGLOBIN 13.1 GM/dL (10.7-15.3); LYMPH % 23.8 % (8-40); MCHC 32.2 g/dl (32.0-36.0); MEAN CELL VOLUME 90.3 fl (80-96); MEAN PLT VOLUME 8.4 fl (7.5-11.1); MONO % 9.6 % (3.8-10.2); NEUT % 65.6 % (42.8-82.8); PLATELET COUNT 211 10^3/uL (134-434); RDW 14.1 % (11.6-15.6); WHITE BLOOD COUNT 7.8 K/mm3 (4.0-10.0)
[2022-02-22 01:59] LABS: URINE APPEARANCE CLEAR; URINE BILIRUBIN NEGATIVE (NEGATIVE); URINE COLOR YELLOW; URINE GLUCOSE (UA) 3+ (NEGATIVE); URINE KETONE 3+ (NEGATIVE); URINE LEUK ESTERASE NEGATIVE (NEGATIVE); URINE NITRITE NEGATIVE (NEGATIVE); URINE PROTEIN NEGATIVE (NEGATIVE); URINE UROBILINOGEN 0.2 mg/dL (0.2-1.0)
[2022-02-22 02:03] LABS: VENOUS BASE EXCESS -6.8 mmol/L (-2-2); VENOUS O2 SATURATION 61.3 % (70-80); VENOUS PCO2 40.8 mmHg (38-52); VENOUS PH 7.293 (7.310-7.410)
[2022-02-22 02:10] LABS: INR 1.12 (0.83-1.09); PROTHROMBIN TIME (PATIENT) 12.9 SEC (9.7-13.0)
[2022-02-22 02:12] LABS: ACTIVATED PTT 32.7 SECONDS (25.2-36.5)
[2022-02-22 02:26] LABS: SODIUM 128 mmol/L (136-145)
[2022-02-22 02:28] LABS: CALCIUM 9.9 mg/dL (8.5-10.1)
[2022-02-22 02:29] LABS: ALBUMIN 4.3 g/dl (3.4-5.0); CO2 17 mmol/L (21-32); MAGNESIUM 1.9 mg/dL (1.8-2.4)
[2022-02-22 02:32] LABS: CREATININE 1.5 mg/dL (0.55-1.3); SGOT/AST 25 U/L (15-37); SGPT/ALT 26 U/L (13-61)
[2022-02-22 02:33] LABS: BILIRUBIN,TOTAL 0.8 mg/dL (0.2-1); TOT PROT 7.8 g/dl (6.4-8.2)
[2022-02-22 02:34] LABS: ALK PHOS 124 U/L (45-117)
[2022-02-22 02:49] LABS: ANION GAP 24 MMOL/L (8-16); CHLORIDE 87 mmol/L (98-107); GLUCOSE,RANDOM 819 mg/dL (74-106)
[2022-02-22] MEDS ORDERED: INSULIN REGULAR HUMAN 100 UNITS/ML *VIAL* (FOR IVP) IVPUSH ONE (02:52)
[2022-02-22] MEDS ORDERED: SODIUM CHLORIDE 0.9% 500 ML INFUS.BAG IV ONE (02:52)
[2022-02-22] MEDS ORDERED: INSULIN REGULAR 100 UNITS in SODIUM CHLORIDE 99 ML IVPB SCH (03:00)
[2022-02-22 05:03] LABS: CHLORIDE 98 mmol/L (98-107); SODIUM 138 mmol/L (136-145)
[2022-02-22 05:05] LABS: CALCIUM 9.1 mg/dL (8.5-10.1)
[2022-02-22 05:06] LABS: ANION GAP 24 MMOL/L (8-16); BLOOD UREA NITROGEN 22.1 mg/dL (7-18); CO2 16 mmol/L (21-32)
[2022-02-22 05:09] LABS: CREATININE 1.3 mg/dL (0.55-1.3)
[2022-02-22 05:33] LABS: GLUCOSE,RANDOM 575 mg/dL (74-106)
[2022-02-22 05:33] LABS: LACTIC ACID 4.6 mmol/L (0.4-2.0)
[2022-02-22 05:38] VITALS: BMI 20.8
[2022-02-22] MEDS ORDERED: SODIUM CHLORIDE 0.45%/POT 20 MEQ/1,000 ML INFUS.BAG IV SCH (06:00)
[2022-02-22 07:55] LABS: BASO % 0.6 % (0-2.0); EOS % 0.1 % (0-4.5); HEMATOCRIT 36.6 % (32.4-45.2); HEMOGLOBIN 12.4 GM/dL (10.7-15.3); LYMPH % 29.2 % (8-40); MCH 29.3 pg (25.7-33.7); MCHC 33.9 g/dl (32.0-36.0); MEAN CELL VOLUME 86.5 fl (80-96); MEAN PLT VOLUME 8.2 fl (7.5-11.1); MONO % 6.6 % (3.8-10.2); NEUT % 63.5 % (42.8-82.8); PLATELET COUNT 219 10^3/uL (134-434); RBC 4.23 M/mm3 (3.60-5.2); RDW 13.9 % (11.6-15.6); WHITE BLOOD COUNT 10.4 K/mm3 (4.0-10.0)
[2022-02-22 08:11] LABS: BLOOD UREA NITROGEN 23.6 mg/dL (7-18)
[2022-02-22 08:12] LABS: CALCIUM 9.1 mg/dL (8.5-10.1)
[2022-02-22 08:13] LABS: ALBUMIN 3.8 g/dl (3.4-5.0)
[2022-02-22 08:15] LABS: CREATININE 1.1 mg/dL (0.55-1.3); PHOSPHOROUS 3.3 mg/dL (2.5-4.9)
[2022-02-22 08:16] LABS: TOT PROT 7.2 g/dl (6.4-8.2)
[2022-02-22 08:17] LABS: BILIRUBIN,TOTAL 0.6 mg/dL (0.2-1)
[2022-02-22] MEDS ORDERED: D5-1/2NS+20 MEQ KCL - 20 MEQ/1,000 ML INFUS.BAG IV SCH (08:30)
[2022-02-22] MEDS ORDERED: DEXTROSE 50%-WATER 25 GM/50 ML DISP.SYRIN IVPUSH ONE (08:37)
[2022-02-22] MEDS ORDERED: INSULIN (LEVEMIR) 100 UNITS/ML UNITS SQ SCH (08:41)
[2022-02-22] MEDS ORDERED: DEXTROSE 5%-NORMAL SALINE 1,000 ML IV SCH (08:45)
[2022-02-22] MEDS: ENOXAPARIN NA (PORCINE) 40 MG/0.4 ML DISP.SYRIN SQ SCH (10:21)
[2022-02-22] MEDS: MUPIROCIN 2% TOPICAL OINTMENT FOR DECOLONIZATION NS SCH ×2 (10:22→22:11)
[2022-02-22 11:50] LABS: CALCIUM 9.5 mg/dL (8.5-10.1)
[2022-02-22 11:51] LABS: BLOOD UREA NITROGEN 18.3 mg/dL (7-18)
[2022-02-22 11:54] LABS: CREATININE 0.9 mg/dL (0.55-1.3)
[2022-02-22] MEDS ORDERED: INSULIN SLIDING SCALE (NOVOLOG) 1 VIAL SQ SCH ×2 (12:30)
[2022-02-22 14:03] LABS: CALCIUM 9.6 mg/dL (8.5-10.1)
[2022-02-22] MEDS ORDERED: INSULIN (LEVEMIR) 100 UNITS/ML UNITS SQ ONE (14:27)
[2022-02-22] MEDS ORDERED: SODIUM CHLORIDE 1,000 ML IV SCH (15:15)
[2022-02-22] MEDS: INSULIN SLIDING SCALE (NOVOLOG) 1 VIAL SQ SCH ×3 (15:22→22:09)
[2022-02-22] MEDS ORDERED: DOPAMINE 400 MG/D5W - 400,000 MCG/250 ML INFUS.BAG IVPB SCH (15:30)
[2022-02-22 19:19] LABS: BLOOD UREA NITROGEN 16.8 mg/dL (7-18)
[2022-02-22 19:22] LABS: CREATININE 0.9 mg/dL (0.55-1.3)
[2022-02-22] MEDS ORDERED: ACETAMINOPHEN 1000 MG/100 ML BAG IVPB ONE (19:45)
[2022-02-22] MEDS ORDERED: CHLORHEXIDINE GLUCONATE 4% CLEANSER FOR DECOLONIZATION TP SCH (22:00)
[2022-02-22] MEDS: INSULIN (LEVEMIR) 100 UNITS/ML UNITS SQ SCH (22:10)
[2022-02-23] MEDS: INSULIN SLIDING SCALE (NOVOLOG) 1 VIAL SQ SCH ×3 (02:04→10:30)
[2022-02-23] MEDS ORDERED: DEXTROSE 50%-WATER - 25 GM/50 ML VIAL IVPUSH ONE (02:06)
[2022-02-23] MEDS ORDERED: DEXTROSE 50%-WATER 25 GM/50 ML DISP.SYRIN ONE (02:11)
[2022-02-23] MEDS: INSULIN (LEVEMIR) 100 UNITS/ML UNITS SQ SCH (06:04)
[2022-02-23 07:27] LABS: HEMATOCRIT 35.1 % (32.4-45.2); MCH 29.7 pg (25.7-33.7); MCHC 34.2 g/dl (32.0-36.0); PLATELET COUNT 192 10^3/uL (134-434); RBC 4.04 M/mm3 (3.60-5.2); WHITE BLOOD COUNT 8.5 K/mm3 (4.0-10.0)
[2022-02-23 07:43] LABS: CALCIUM 8.1 mg/dL (8.5-10.1)
[2022-02-23 07:44] LABS: BLOOD UREA NITROGEN 9.7 mg/dL (7-18); MAGNESIUM 1.6 mg/dL (1.8-2.4)
[2022-02-23 07:47] LABS: CREATININE 0.8 mg/dL (0.55-1.3)
[2022-02-23] MEDS: ENOXAPARIN NA (PORCINE) 40 MG/0.4 ML DISP.SYRIN SQ SCH (10:35)
[2022-02-23] MEDS: MUPIROCIN 2% TOPICAL OINTMENT FOR DECOLONIZATION NS SCH (10:39)
[2022-02-23] MEDS ORDERED: MAGNESIUM 2GM/50ML STERILE WATER IVPB IVPB ONE (12:30)
[2022-02-23] MEDS ORDERED: INSULIN (NOVOLOG) ASPART 100 UNITS/ML 10ML VIAL SQ SCH (16:30)
[2022-02-23] MEDS ORDERED: INSULIN SLIDING SCALE (NOVOLOG) 1 VIAL SQ SCH (16:30)
[2022-02-23 21:14] VITALS: BP 138/71; PULSE 86; RESP 19; TEMP 98.8
== END 2022-02-23 20:40 | disposition left against medical advice (07) | DRG 420 ==
LOC: JER 00:36 → JERBED 02:51 → JICU 05:01
PROVIDERS: ADMIT Internal Medicine Pulmonary Disease; ATTEND Internal Medicine Pulmonary Disease
DX: E11.10 Type 2 diabetes mellitus with ketoacidosis without coma (principal); I10 Essential (primary) hypertension; E78.5 Hyperlipidemia, unspecified; E11.9 Type 2 diabetes mellitus without complications; F39 Unspecified mood [affective] disorder; N17.9 Acute kidney failure, unspecified; E86.0 Dehydration; E87.2 Acidosis; E11.40 Type 2 diabetes mellitus with diabetic neuropathy, unspecified; Z59.00 Homelessness unspecified; Z91.14 Patient's other noncompliance with medication regimen
CPT/HCPCS: 36415; 70450-TC; 71045-TC-FY; 72125-TC; 80048; 80053; 80307; 81003; 82010; 82803; 82962; 83605; 83735; 84100; 84484; 85025; 85027; 85610; 85730; 87040; 87086; 93005; 93010; 99291; 99292; C9803-CS; J3480; U0003; U0005